=== PATIENT | male | born 1955 | race Caucasian/White ===

== ENCOUNTER 2016-12-06 22:16 | Inpatient (IN) | payer OTHER ==
--- NOTE | 2016-12-06 23:13 | HP ---
CIWA Score - CIWA Score Nausea/Vomitin-Mild Nausea/No Vomiting Muscle Tremors: 4-Moderate,w/Arms Extend Anxiety: 4-Mod. Anxious/Guarded Agitation: 4-Moderately Restless Paroxysmal Sweats: 1-Minimal Palms Moist Orientation: 1-Uncertain about Date Tacttile Disturbances: 0-None Auditory Disturbances: 0-None Visual Disturbances: 0-None Headache: 1-Very Mild CIWA-Ar Total Score: 16 Admission ROS BHS - HPI Chief Complaint: withdrawal sx Allergies/Adverse Reactions: Allergies Allergy/AdvReac Type Severity Reaction Status Date / Time No Known Allergies Allergy Verified 12/06/16 22:34 History of Present Illness: 61 years old male with long history of alcohol dependence gerd asthma copd has depression is admitted to detox Exam Limitations: No Limitations - Ebola screening Have you traveled outside of the country in the last 21 days: No Have you had contact with anyone from an Ebola affected area: No Have you been sick,other than usual withdrawal symptoms: No Do you have a fever: No - Review of Systems Constitutional: Chills, Changes in sleep, Weight Stable EENT: reports: Dental Problems (upper denture at home) Respiratory: reports: SOB with Exertion Cardiac: reports: No Symptoms Reported GI: reports: Nausea, Poor Fluid Intake, Indigestion, Abdominal cramping : reports: No Symptoms Reported Musculoskeletal: reports: Back Pain, Joint Pain (right knee), Joint Swelling, Muscle Pain, Neck Pain Integumentary: reports: Change in Color (left elbow), Dryness Neuro: reports: Tremors Endocrine: reports: No Symptoms Reported Hematology: reports: No Symptoms Reported Psychiatric: reports: Judgement Intact, Depressed Other Systems: Reviewed and Negative Patient History - Patient Medical History Hx Anemia: No Hx Asthma: Yes Hx Chronic Obstructive Pulmonary Disease (COPD): Yes Hx Cancer: No Hx Cardiac Disorders: No Hx Congestive Heart Failure: No Hx Hypertension: No Hx Hypercholesterolemia: No Hx Pacemaker: No HX Cerebrovascular Accident: No Hx Seizures: No Hx Dementia: No Hx Diabetes: No Hx Gastrointestinal Disorders: No Hx Liver Disease: Yes (cirrhosis ) Hx Genitourinary Disorders: No Hx Sexually Transmitted Disorders: No Hx Renal Disease (ESRD): No Hx Thyroid Disease: No Hx Human Immunodeficiency Virus (HIV): No Hx Hepatitis C: No Hx Depression: Yes Hx Suicide Attempt: No Hx Bipolar Disorder: No Hx Schizophrenia: No - Patient Surgical History Past Surgical History: Yes Hx Neurologic Surgery: No Hx Cataract Extraction: No Hx Cardiac Surgery: No Hx Lung Surgery: No Hx Breast Surgery: No Hx Breast Biopsy: No Hx Abdominal Surgery: No Hx Appendectomy: No Hx Cholecystectomy: No Hx Genitourinary Surgery: No Hx Orthopedic Surgery: Yes (laminectomy/Back and Left Shoulder) Other Surgical History: H/O L ARM SKIN GRAFT Anesthesia Reaction: No - PPD History Previous Implant?: Yes Documented Results: Negative w/proof Implanted On Prior [facility] Admission?: Yes Date: 11/09/15 Results: 0 MM PPD to be Administered?: Yes - Smoking Cessation Smoking history: Former smoker Have you smoked in the past 12 months: No Aproximately how many cigarettes per day: 0 Cigars Per Day: 0 Hx Chewing Tobacco Use: No Initiated information on smoking cessation: Yes 'Breaking Loose' booklet given: 12/06/16 - Substance & Tx. History Hx Alcohol Use: Yes Hx Substance Use: No Substance Use Type: Alcohol Hx Substance Use Treatment: Yes - Substances Abused Alcohol Route: Oral Frequency: Daily Amount used: BEER 18 PACK, VODKA 1 PINT Age of first use: 11 Date of Last Use: 12/05/16 Family Disease History - Family Disease History Family Disease History: CA: Mother (BREAST CA. AND ), Other: Father (ETOH DEPENDENT AND ) Admission Physical Exam S - Vital Signs Vital Signs: Vital Signs - 24 hr 12/06/16 23:03 Temperature 97.0 F L Pulse Rate 66 Respiratory 18 Rate Blood Pressure 140/69 - Physical General Appearance: Yes: Appropriately Dressed, Moderate Distress, Obese, Tremorous, Irritable, Sweating, Anxious HEENTM: Yes: Hearing grossly Normal, Normal ENT Inspection, Normocephalic, Normal Voice Respiratory: Yes: Chest Non-Tender, No Respiratory Distress, No Accessory Muscle Use, Wheezing, Hyperresonant Neck: Yes: Supple, Trachea in good position Breast: Yes: Breasts Symetrical Cardiology: Yes: Regular Rhythm, S1, S2, Bradycardia Abdominal: Yes: Non Tender, Soft Genitourinary: Yes: Within Normal Limits Back: Yes: Normal Inspection Musculoskeletal: Yes: Back pain, Joint swelling (right knee), Muscle Pain Extremities: Yes: Non-Tender, Tremors, Swelling (right knee) Neurological: Yes: Alert, Normal Response, Depressed Affect Integumentary: Yes: Dry, Warm Lymphatic: Yes: Within Normal Limits - Diagnostic (1) Bony prominence Current Visit: Yes Status: Chronic Comment: right clavical spur (2) Depression Current Visit: Yes Status: Suspected Qualifiers: Depression Type: dysthymia Qualified Code(s): F34.1 - Dysthymic disorder Comment: friend recent (3) Alcohol dependence with uncomplicated withdrawal Current Visit: Yes Status: Acute (4) Asthma Current Visit: Yes Status: Chronic Qualifiers: Asthma severity: moderate persistent Asthma complication type: uncomplicated Qualified Code(s): J45.40 - Moderate persistent asthma, uncomplicated (5) COPD (chronic obstructive pulmonary disease) Current Visit: Yes Status: Chronic Qualifiers: COPD type: COPD with acute exacerbation Qualified Code(s): J44.1 - Chronic obstructive pulmonary disease with (acute) exacerbation (6) Chronic low back pain Current Visit: Yes Status: Chronic Qualifiers: Back pain laterality: bilateral Sciatica presence: without sciatica Qualified Code(s): M54.5 - Low back pain; G89.29 - Other chronic pain (7) GERD (gastroesophageal reflux disease) Current Visit: Yes Status: Chronic Qualifiers: Esophagitis presence: without esophagitis Qualified Code(s): K21.9 - Gastro-esophageal reflux disease without esophagitis (8) Neuropathy Current Visit: Yes Status: Chronic Comment: left face + right toe big Cleared for Admission BHS - Detox or Rehab S Level of Care: Medically Managed Detox Regimen/Protocol: Librium BHS Breath Alcohol Content Breath Alcohol Content: 0 Urine Drug Screen - Results Drug Screen Negative: Yes
[2016-12-06 23:18] VITALS: BMI 35.2
[2016-12-06] MEDS ORDERED: hydrOXYzine PAMOATE 50 MG CAPSULE (FP) PO PRN (23:23)
[2016-12-06] MEDS ORDERED: chlordiazePOXIDE HCL 25 MG CAPSULE PO PRN (23:23)
[2016-12-06] MEDS ORDERED: P-EPHED 60MG/TRIPROLIDI 2.5MG TABLET PO PRN (23:23)
[2016-12-06] MEDS ORDERED: LOPERAMIDE HCL 2 MG CAPSULE PO PRN (23:23)
[2016-12-06] MEDS ORDERED: guaiFENesin/D-METHORPHAN HB 10 ML UNIT-DOSE CUPS PO PRN (23:23)
[2016-12-06] MEDS ORDERED: MENTHOL/PHENOL 1 EACH UD MM PRN (23:23)
[2016-12-06] MEDS ORDERED: MAGNESIUM HYDROX 2400MG/30ML ORAL SUSPENSION 30 ML CUP PO PRN (23:23)
[2016-12-06] MEDS ORDERED: MAGNESIUM CITRATE 300 ML BOTTLE PO PRN (23:23)
[2016-12-06] MEDS ORDERED: chlordiazePOXIDE HCL 25 MG CAPSULE PO ONE (23:23)
[2016-12-06] MEDS ORDERED: ALBUTEROL SO4 6.7 GM HFA INHALER IH PRN (23:29)
[2016-12-06] MEDS ORDERED: BACITRACIN 0.9 GM PACKET TP ONE (23:31)
[2016-12-06] MEDS ORDERED: cloNIDine HCL 0.1 MG TABLET PO PRN (23:32)
[2016-12-06] MEDS ORDERED: ALBUTEROL SO4 2.5/IPRATROPIUM 0.5 INH SOL 3 ML VIAL.NEB. NEB PRN (23:40)
[2016-12-07] MEDS: chlordiazePOXIDE HCL 25 MG CAPSULE PO SCH ×5 (05:57→22:42)
--- NOTE | 2016-12-07 09:49 | CONSULT ---
[facility] Psychiatric Consult - Data Date of interview: 12/07/16 Admission source: [facility] Identifying data: This is 61 years old male with no psychiatric hospitalization history, with unsteady gait due to Costochondritis Substance Abuse History: - Smoking Cessation. Smoking history: Former smoker. Have you smoked in the past 12 months: No. Aproximately how many cigarettes per day: 0. Cigars Per Day: 0. Hx Chewing Tobacco Use: No. Initiated information on smoking cessation: Yes. 'Breaking Loose' booklet given: . - Substance & Tx. History. Hx Alcohol Use: Yes. Hx Substance Use: No. Substance Use Type: Alcohol. Hx Substance Use Treatment: Yes. - Substances Abused. Alcohol. Route: Oral. Frequency: Daily. Amount used: BEER 18 PACK , VODKA 1 PINT. Age of first use: 11. Date of Last Use: 12/05/16 Medical History: Asthma, LBP, Costochondritis history, unsteady gait history Psychiatric History: Patient denies past psychiatric history, as per computer there is a history of depression and anxiety, Patient reportds no medications taking prior to admission Physical/Sexual Abuse/Trauma History: Denies Additional Comment: Observation. Detox Unit Care Protocol Mental Status Exam - Mental Status Exam Alert and Oriented to: Person Cognitive Function: Fair Patient Appearance: Unkempt Mood: Apprehensive Affect: Mood Congruent Patient Behavior: Cooperative Speech Pattern: Appropriate Voice Loudness: Mildly Soft/Quiet Thought Process: Goal Oriented Thought Disorder: Being Controlled Hallucinations: Denies Suicidal Ideation: Denies Homicidal Ideation: Denies Insight/Judgement: Fair Sleep: Difficulty falling asleep Appetite: Weight gain Muscle strength/Tone: Mild Hypotonicity Gait/Station: Shuffling Additional Comments: Observation. Detox Unit Care Protocol Psychiatric Findings - Problem List ([place] 1, 2,3) (1) Alcohol dependence with uncomplicated withdrawal Current Visit: Yes Status: Acute (2) Alcohol use Current Visit: No Status: Acute (3) Drug-induced mood disorder Current Visit: No Status: Acute (4) Nicotine dependence Current Visit: No Status: Chronic Qualifiers: Nicotine product type: cigarettes Substance use status: uncomplicated Qualified Code(s): F17.210 - Nicotine dependence, cigarettes, uncomplicated - Initial Treatment Plan Initial Treatment Plan: Observation. Detox Unit Care Protocol
[2016-12-07 09:57] LABS: MCH 31.5 pg (25.7-33.7); MEAN CELL VOLUME 95.6 fl (80-96); MEAN PLT VOLUME 9.1 fl (7.5-11.1); PLATELET COUNT 133 K/MM3 (134-434); WHITE BLOOD COUNT 5.1 K/mm3 (4.0-10.0)
[2016-12-07 09:59] LABS: ALBUMIN 3.4 g/dl (3.4-5.0); ANION GAP 9 (8-16); CALCIUM 8.7 mg/dL (8.5-10.1); CO2 30 mmol/L (21-32); COCKROFT - GAULT 131.03; GLUCOSE,RANDOM 103 mg/dL (74-106); SGOT/AST 30 U/L (15-37); SGPT/ALT 30 U/L (12-78)
[2016-12-07 10:01] LABS: ALK PHOS 75 U/L (45-117); TOT PROT 6.9 g/dl (6.4-8.2)
[2016-12-07] MEDS: BUDESONIDE/FORMETEROL FUMARATE 80/4.5 mcg INHALER IH SCH ×2 (10:41→22:42)
[2016-12-07] MEDS: PRENATAL VITAMINS W/ FOLIC ACID TABLET (FP) PO SCH (10:41)
[2016-12-07] MEDS: RANITIDINE HCL 150 MG TABLET (FP) PO SCH ×2 (10:41→22:42)
--- NOTE | 2016-12-07 11:51 | PN ---
[facility] CIWA - CIWA Score Nausea/Vomitin-No Nausea/No Vomiting Muscle Tremors: 4-Moderate,w/Arms Extend Anxiety: 4-Mod. Anxious/Guarded Agitation: 4-Moderately Restless Paroxysmal Sweats: 1-Minimal Palms Moist Orientation: 0-Oriented Tacttile Disturbances: 3-Moderate Itch/Numb/Burn Auditory Disturbances: 0-None Visual Disturbances: 0-None Headache: 0-None Present CIWA-Ar Total Score: 16 S Progress Note (SOAP) Subjective: ANXIETY,TREMORS,FATIGUE, INTERMITTENT SLEEP. Objective: 12/07/16 11:51 Vital Signs Temperature 95.3 F L 12/07/16 09:27 Pulse Rate 80 12/07/16 09:27 Respiratory Rate 18 12/07/16 09:27 Blood Pressure 113/80 12/07/16 09:27 O2 Sat by Pulse Oximetry (%) Laboratory Last Values WBC 5.1 K/mm3 (4.0-10.0) D 12/07/16 07:00 RBC 4.54 M/mm3 (4.00-5.60) 12/07/16 07:00 Hgb 14.3 GM/dL (11.7-16.9) D 12/07/16 07:00 Hct 43.4 % (35.4-49) 12/07/16 07:00 MCV 95.6 fl (80-96) 12/07/16 07:00 MCHC 33.0 g/dl (32.0-35.9) 12/07/16 07:00 RDW 14.0 % (11.9-15.9) 12/07/16 07:00 Plt Count 133 K/MM3 (134-434) L D 12/07/16 07:00 MPV 9.1 fl (7.5-11.1) 12/07/16 07:00 Sodium 142 mmol/L (136-145) 12/07/16 07:00 Potassium 4.1 mmol/L (3.5-5.1) 12/07/16 07:00 Chloride 103 mmol/L (98-107) 12/07/16 07:00 Carbon Dioxide 30 mmol/L (21-32) 12/07/16 07:00 Anion Gap 9 (8-16) 12/07/16 07:00 BUN 12 mg/dL (7-18) D 12/07/16 07:00 Creatinine 1.0 mg/dL (0.7-1.3) D 12/07/16 07:00 Creat Clearance w eGFR > 60 (>60) 12/07/16 07:00 Random Glucose 103 mg/dL (74-106) 12/07/16 07:00 Calcium 8.7 mg/dL (8.5-10.1) 12/07/16 07:00 Total Bilirubin 2.0 mg/dL (0.2-1.0) H 12/07/16 07:00 AST 30 U/L (15-37) D 12/07/16 07:00 ALT 30 U/L (12-78) 12/07/16 07:00 Alkaline Phosphatase 75 U/L (45-117) D 12/07/16 07:00 Total Protein 6.9 g/dl (6.4-8.2) 12/07/16 07:00 Albumin 3.4 g/dl (3.4-5.0) 12/07/16 07:00 Assessment: 12/07/16 11:51 WITHDRAWAL SX Plan: CONTINUE DETOX
--- NOTE | 2016-12-07 12:50 | EKG ---
Test Reason : Blood Pressure : / mmHG Vent. Rate : 056 BPM Atrial Rate : 056 BPM P-R Int : 136 ms QRS Dur : 096 ms QT Int : 432 ms P-R-T Axes : 047 014 013 degrees QTc Int : 416 ms SINUS BRADYCARDIA MINIMAL VOLTAGE CRITERIA FOR LVH, MAY BE NORMAL VARIANT BORDERLINE ECG WHEN COMPARED WITH ECG OF 07-MAY-2016 17:40, NO SIGNIFICANT CHANGE WAS FOUND Confirmed by JUANA REYES, NELLIE ([id number]) on 12/07/2016 12:49:23 PM Referred By: Confirmed By:NELLIE ARIAS MD
[2016-12-07 14:46] LABS: URINE APPEARANCE CLEAR; URINE BILIRUBIN NEGATIVE (NEGATIVE); URINE BLOOD NEGATIVE (NEGATIVE); URINE COLOR DKYELLOW; URINE GLUCOSE (UA) NEGATIVE (NEGATIVE); URINE KETONE NEGATIVE (NEGATIVE); URINE LEUK ESTERASE NEGATIVE (NEGATIVE); URINE NITRITE NEGATIVE (NEGATIVE); URINE PROTEIN NEGATIVE (NEGATIVE); URINE UROBILINOGEN 2.0 E.U/dl E.U./dl (0.2-1.0)
[2016-12-07] MEDS: THIAMINE HCL 100 MG TABLET (FP) PO SCH (22:42)
[2016-12-07] MEDS: diphenhydrAMINE HCL 50 MG CAPSULE PO PRN (22:43)
[2016-12-08] MEDS: chlordiazePOXIDE HCL 25 MG CAPSULE PO SCH ×3 (06:10→17:21)
[2016-12-08] MEDS: RANITIDINE HCL 150 MG TABLET (FP) PO SCH ×2 (10:46→22:34)
[2016-12-08] MEDS: PRENATAL VITAMINS W/ FOLIC ACID TABLET (FP) PO SCH (10:46)
[2016-12-08] MEDS: BUDESONIDE/FORMETEROL FUMARATE 80/4.5 mcg INHALER IH SCH ×2 (10:48→22:33)
--- NOTE | 2016-12-08 11:56 | PN ---
[facility] CIWA - CIWA Score Nausea/Vomitin-No Nausea/No Vomiting Muscle Tremors: 5 Anxiety: 4-Mod. Anxious/Guarded Agitation: 4-Moderately Restless Paroxysmal Sweats: 1-Minimal Palms Moist Orientation: 0-Oriented Tacttile Disturbances: 3-Moderate Itch/Numb/Burn Auditory Disturbances: 0-None Visual Disturbances: 0-None Headache: 0-None Present CIWA-Ar Total Score: 17 S Progress Note (SOAP) Subjective: TREMORS,ANXIETY,SWEATS,FATIGUE. Objective: 12/08/16 11:56 Vital Signs Temperature 96.7 F L 12/08/16 10:26 Pulse Rate 76 12/08/16 10:26 Respiratory Rate 18 12/08/16 10:26 Blood Pressure 111/72 12/08/16 10:26 O2 Sat by Pulse Oximetry (%) Laboratory Last Values WBC 5.1 K/mm3 (4.0-10.0) D 12/07/16 07:00 RBC 4.54 M/mm3 (4.00-5.60) 12/07/16 07:00 Hgb 14.3 GM/dL (11.7-16.9) D 12/07/16 07:00 Hct 43.4 % (35.4-49) 12/07/16 07:00 MCV 95.6 fl (80-96) 12/07/16 07:00 MCHC 33.0 g/dl (32.0-35.9) 12/07/16 07:00 RDW 14.0 % (11.9-15.9) 12/07/16 07:00 Plt Count 133 K/MM3 (134-434) L D 12/07/16 07:00 MPV 9.1 fl (7.5-11.1) 12/07/16 07:00 Sodium 142 mmol/L (136-145) 12/07/16 07:00 Potassium 4.1 mmol/L (3.5-5.1) 12/07/16 07:00 Chloride 103 mmol/L (98-107) 12/07/16 07:00 Carbon Dioxide 30 mmol/L (21-32) 12/07/16 07:00 Anion Gap 9 (8-16) 12/07/16 07:00 BUN 12 mg/dL (7-18) D 12/07/16 07:00 Creatinine 1.0 mg/dL (0.7-1.3) D 12/07/16 07:00 Creat Clearance w eGFR > 60 (>60) 12/07/16 07:00 Random Glucose 103 mg/dL (74-106) 12/07/16 07:00 Calcium 8.7 mg/dL (8.5-10.1) 12/07/16 07:00 Total Bilirubin 2.0 mg/dL (0.2-1.0) H 12/07/16 07:00 AST 30 U/L (15-37) D 12/07/16 07:00 ALT 30 U/L (12-78) 12/07/16 07:00 Alkaline Phosphatase 75 U/L (45-117) D 12/07/16 07:00 Total Protein 6.9 g/dl (6.4-8.2) 12/07/16 07:00 Albumin 3.4 g/dl (3.4-5.0) 12/07/16 07:00 Urine Color Dkyellow 12/07/16 11:20 Urine Appearance Clear 12/07/16 11:20 Urine pH 5.0 (5.0-8.0) D 12/07/16 11:20 Ur Specific [place] 1.020 (1.005-1.025) 12/07/16 11:20 Urine Protein Negative (NEGATIVE) 12/07/16 11:20 Urine Glucose (UA) Negative (NEGATIVE) 12/07/16 11:20 Urine Ketones Negative (NEGATIVE) 12/07/16 11:20 Urine Blood Negative (NEGATIVE) 12/07/16 11:20 Urine Nitrite Negative (NEGATIVE) 12/07/16 11:20 Urine Bilirubin Negative (NEGATIVE) 12/07/16 11:20 Urine Urobilinogen 2.0 e.u/dl E.U./dl (0.2-1.0) 12/07/16 11:20 Ur Leukocyte Esterase Negative (NEGATIVE) 12/07/16 11:20 RPR Titer Nonreactive (NONREACTIVE) 12/07/16 07:00 Assessment: 12/08/16 11:56 WITHDRAWAL SX Plan: CONTINUE DETOX
[2016-12-08] MEDS: THIAMINE HCL 100 MG TABLET (FP) PO SCH (22:34)
[2016-12-08] MEDS: chlordiazePOXIDE 5 MG CAPSULE PO SCH (22:34)
[2016-12-08] MEDS: diphenhydrAMINE HCL 50 MG CAPSULE PO PRN (22:35)
[2016-12-09] MEDS: chlordiazePOXIDE 5 MG CAPSULE PO SCH ×3 (05:32→17:50)
[2016-12-09] MEDS: BUDESONIDE/FORMETEROL FUMARATE 80/4.5 mcg INHALER IH SCH ×2 (10:39→22:30)
[2016-12-09] MEDS: RANITIDINE HCL 150 MG TABLET (FP) PO SCH ×2 (10:39→22:30)
[2016-12-09] MEDS: PRENATAL VITAMINS W/ FOLIC ACID TABLET (FP) PO SCH (10:39)
[2016-12-09] MEDS: ACETAMINOPHEN 325 MG TABLET (FP) PO PRN ×2 (10:41→23:01)
--- NOTE | 2016-12-09 16:25 | PN ---
BHS Progress Note (SOAP) Subjective: Stomach Cramping, Tremors, Body Aches, H/A, Interrupted Sleep. Objective: PT. A & O X 3, OBSERVED MOVING ABOUT UNIT IN A WHEELCHAIR. 12/09/16 16:23 Vital Signs Temperature 96.7 F L 12/09/16 13:22 Pulse Rate 67 12/09/16 13:22 Respiratory Rate 18 12/09/16 13:22 Blood Pressure 117/71 12/09/16 13:22 O2 Sat by Pulse Oximetry (%) Laboratory Last Values WBC 5.1 K/mm3 (4.0-10.0) D 12/07/16 07:00 RBC 4.54 M/mm3 (4.00-5.60) 12/07/16 07:00 Hgb 14.3 GM/dL (11.7-16.9) D 12/07/16 07:00 Hct 43.4 % (35.4-49) 12/07/16 07:00 MCV 95.6 fl (80-96) 12/07/16 07:00 MCHC 33.0 g/dl (32.0-35.9) 12/07/16 07:00 RDW 14.0 % (11.9-15.9) 12/07/16 07:00 Plt Count 133 K/MM3 (134-434) L D 12/07/16 07:00 MPV 9.1 fl (7.5-11.1) 12/07/16 07:00 Sodium 142 mmol/L (136-145) 12/07/16 07:00 Potassium 4.1 mmol/L (3.5-5.1) 12/07/16 07:00 Chloride 103 mmol/L (98-107) 12/07/16 07:00 Carbon Dioxide 30 mmol/L (21-32) 12/07/16 07:00 Anion Gap 9 (8-16) 12/07/16 07:00 BUN 12 mg/dL (7-18) D 12/07/16 07:00 Creatinine 1.0 mg/dL (0.7-1.3) D 12/07/16 07:00 Creat Clearance w eGFR > 60 (>60) 12/07/16 07:00 Random Glucose 103 mg/dL (74-106) 12/07/16 07:00 Calcium 8.7 mg/dL (8.5-10.1) 12/07/16 07:00 Total Bilirubin 2.0 mg/dL (0.2-1.0) H 12/07/16 07:00 AST 30 U/L (15-37) D 12/07/16 07:00 ALT 30 U/L (12-78) 12/07/16 07:00 Alkaline Phosphatase 75 U/L (45-117) D 12/07/16 07:00 Total Protein 6.9 g/dl (6.4-8.2) 12/07/16 07:00 Albumin 3.4 g/dl (3.4-5.0) 12/07/16 07:00 Urine Color Dkyellow 12/07/16 11:20 Urine Appearance Clear 12/07/16 11:20 Urine pH 5.0 (5.0-8.0) D 12/07/16 11:20 Ur Specific [place] 1.020 (1.005-1.025) 12/07/16 11:20 Urine Protein Negative (NEGATIVE) 12/07/16 11:20 Urine Glucose (UA) Negative (NEGATIVE) 12/07/16 11:20 Urine Ketones Negative (NEGATIVE) 12/07/16 11:20 Urine Blood Negative (NEGATIVE) 12/07/16 11:20 Urine Nitrite Negative (NEGATIVE) 12/07/16 11:20 Urine Bilirubin Negative (NEGATIVE) 12/07/16 11:20 Urine Urobilinogen 2.0 e.u/dl E.U./dl (0.2-1.0) 12/07/16 11:20 Ur Leukocyte Esterase Negative (NEGATIVE) 12/07/16 11:20 RPR Titer Nonreactive (NONREACTIVE) 12/07/16 07:00 LABS NOTED. 12/09/16 16:24 Assessment: 12/09/16 16:24 WITHDRAWAL SYMPTOMS. Plan: CONTINUE DETOX. ADVISED PATIENT TO FOLLOW-UP WITH SR. OPERATIONS MANAGER AFTER DISCHARGE FROM DETOX FOR GENERAL MEDICAL ASSESSMENT AND FOR ABNORMAL ADMISSION LAB VALUES.
[2016-12-09] MEDS: chlordiazePOXIDE HCL 10 MG CAPSULE PO SCH (22:30)
[2016-12-09] MEDS: diphenhydrAMINE HCL 50 MG CAPSULE PO PRN (22:30)
[2016-12-09] MEDS: THIAMINE HCL 100 MG TABLET (FP) PO SCH (22:30)
[2016-12-09] MEDS: MAG HYDROX/AL HYDROX/SIMETH 30 ML UNIT-DOSE CUP PO PRN (23:01)
[2016-12-10] MEDS: chlordiazePOXIDE HCL 10 MG CAPSULE PO SCH ×3 (05:39→17:38)
[2016-12-10] MEDS: BUDESONIDE/FORMETEROL FUMARATE 80/4.5 mcg INHALER IH SCH ×2 (10:36→22:32)
[2016-12-10] MEDS: ACETAMINOPHEN 325 MG TABLET (FP) PO PRN ×2 (10:37→22:33)
[2016-12-10] MEDS: RANITIDINE HCL 150 MG TABLET (FP) PO SCH ×2 (10:37→22:31)
[2016-12-10] MEDS: PRENATAL VITAMINS W/ FOLIC ACID TABLET (FP) PO SCH (10:37)
[2016-12-10] MEDS: MAG HYDROX/AL HYDROX/SIMETH 30 ML UNIT-DOSE CUP PO PRN (10:38)
--- NOTE | 2016-12-10 18:04 | PN ---
S Progress Note (SOAP) Subjective: Nausea, H/A, Body Aches, Tremors. Objective: PT. A & O X 3, OBSERVED AMBULATING ON UNIT IN WHEELCHAIR. 12/10/16 18:02 Vital Signs Temperature 97.4 F L 12/10/16 17:43 Pulse Rate 67 12/10/16 17:43 Respiratory Rate 18 12/10/16 17:43 Blood Pressure 106/72 12/10/16 17:43 O2 Sat by Pulse Oximetry (%) Laboratory Last Values WBC 5.1 K/mm3 (4.0-10.0) D 12/07/16 07:00 RBC 4.54 M/mm3 (4.00-5.60) 12/07/16 07:00 Hgb 14.3 GM/dL (11.7-16.9) D 12/07/16 07:00 Hct 43.4 % (35.4-49) 12/07/16 07:00 MCV 95.6 fl (80-96) 12/07/16 07:00 MCHC 33.0 g/dl (32.0-35.9) 12/07/16 07:00 RDW 14.0 % (11.9-15.9) 12/07/16 07:00 Plt Count 133 K/MM3 (134-434) L D 12/07/16 07:00 MPV 9.1 fl (7.5-11.1) 12/07/16 07:00 Sodium 142 mmol/L (136-145) 12/07/16 07:00 Potassium 4.1 mmol/L (3.5-5.1) 12/07/16 07:00 Chloride 103 mmol/L (98-107) 12/07/16 07:00 Carbon Dioxide 30 mmol/L (21-32) 12/07/16 07:00 Anion Gap 9 (8-16) 12/07/16 07:00 BUN 12 mg/dL (7-18) D 12/07/16 07:00 Creatinine 1.0 mg/dL (0.7-1.3) D 12/07/16 07:00 Creat Clearance w eGFR > 60 (>60) 12/07/16 07:00 Random Glucose 103 mg/dL (74-106) 12/07/16 07:00 Calcium 8.7 mg/dL (8.5-10.1) 12/07/16 07:00 Total Bilirubin 2.0 mg/dL (0.2-1.0) H 12/07/16 07:00 AST 30 U/L (15-37) D 12/07/16 07:00 ALT 30 U/L (12-78) 12/07/16 07:00 Alkaline Phosphatase 75 U/L (45-117) D 12/07/16 07:00 Total Protein 6.9 g/dl (6.4-8.2) 12/07/16 07:00 Albumin 3.4 g/dl (3.4-5.0) 12/07/16 07:00 Urine Color Dkyellow 12/07/16 11:20 Urine Appearance Clear 12/07/16 11:20 Urine pH 5.0 (5.0-8.0) D 12/07/16 11:20 Ur Specific [place] 1.020 (1.005-1.025) 12/07/16 11:20 Urine Protein Negative (NEGATIVE) 12/07/16 11:20 Urine Glucose (UA) Negative (NEGATIVE) 12/07/16 11:20 Urine Ketones Negative (NEGATIVE) 12/07/16 11:20 Urine Blood Negative (NEGATIVE) 12/07/16 11:20 Urine Nitrite Negative (NEGATIVE) 12/07/16 11:20 Urine Bilirubin Negative (NEGATIVE) 12/07/16 11:20 Urine Urobilinogen 2.0 e.u/dl E.U./dl (0.2-1.0) 12/07/16 11:20 Ur Leukocyte Esterase Negative (NEGATIVE) 12/07/16 11:20 RPR Titer Nonreactive (NONREACTIVE) 12/07/16 07:00 LABS NOTED. Assessment: 12/10/16 18:03 WITHDRAWAL SYMPTOMS. Plan: CONTINUE DETOX. ADVISED PATIENT TO FOLLOW-UP WITH INVENTORY TRANSCRIBER AFTER DISCHARGE FROM DETOX FOR GENERAL MEDICAL ASSESSMENT AND FOR ABNORMAL ADMISSION LAB VALUES.
[2016-12-10] MEDS: THIAMINE HCL 100 MG TABLET (FP) PO SCH (22:31)
[2016-12-10] MEDS: diphenhydrAMINE HCL 50 MG CAPSULE PO PRN (22:31)
[2016-12-11 06:25] VITALS: BP 133/79; PULSE 54; TEMP 96.3
--- NOTE | 2016-12-11 09:47 | DS ---
[facility] Detox Discharge Summary Admission Date: 12/06/16 Discharge Date: 12/11/16 - History Present History: Alcohol Dependence Pertinent Past History: Asthma/COPD Chronic Low Back pain - Physical Exam Results Vital Signs: Vital Signs Temperature 96.3 F L 12/11/16 06:25 Pulse Rate 54 L 12/11/16 06:25 Respiratory Rate 18 12/11/16 06:25 Blood Pressure 133/79 12/11/16 06:25 O2 Sat by Pulse Oximetry (%) Pertinent Admission Physical Exam Findings: Withdrawal sx. Laboratory Last Values WBC 5.1 K/mm3 (4.0-10.0) D 12/07/16 07:00 RBC 4.54 M/mm3 (4.00-5.60) 12/07/16 07:00 Hgb 14.3 GM/dL (11.7-16.9) D 12/07/16 07:00 Hct 43.4 % (35.4-49) 12/07/16 07:00 MCV 95.6 fl (80-96) 12/07/16 07:00 MCHC 33.0 g/dl (32.0-35.9) 12/07/16 07:00 RDW 14.0 % (11.9-15.9) 12/07/16 07:00 Plt Count 133 K/MM3 (134-434) L D 12/07/16 07:00 MPV 9.1 fl (7.5-11.1) 12/07/16 07:00 Sodium 142 mmol/L (136-145) 12/07/16 07:00 Potassium 4.1 mmol/L (3.5-5.1) 12/07/16 07:00 Chloride 103 mmol/L (98-107) 12/07/16 07:00 Carbon Dioxide 30 mmol/L (21-32) 12/07/16 07:00 Anion Gap 9 (8-16) 12/07/16 07:00 BUN 12 mg/dL (7-18) D 12/07/16 07:00 Creatinine 1.0 mg/dL (0.7-1.3) D 12/07/16 07:00 Creat Clearance w eGFR > 60 (>60) 12/07/16 07:00 Random Glucose 103 mg/dL (74-106) 12/07/16 07:00 Calcium 8.7 mg/dL (8.5-10.1) 12/07/16 07:00 Total Bilirubin 2.0 mg/dL (0.2-1.0) H 12/07/16 07:00 AST 30 U/L (15-37) D 12/07/16 07:00 ALT 30 U/L (12-78) 12/07/16 07:00 Alkaline Phosphatase 75 U/L (45-117) D 12/07/16 07:00 Total Protein 6.9 g/dl (6.4-8.2) 12/07/16 07:00 Albumin 3.4 g/dl (3.4-5.0) 12/07/16 07:00 Urine Color Dkyellow 12/07/16 11:20 Urine Appearance Clear 12/07/16 11:20 Urine pH 5.0 (5.0-8.0) D 12/07/16 11:20 Ur Specific [place] 1.020 (1.005-1.025) 12/07/16 11:20 Urine Protein Negative (NEGATIVE) 12/07/16 11:20 Urine Glucose (UA) Negative (NEGATIVE) 12/07/16 11:20 Urine Ketones Negative (NEGATIVE) 12/07/16 11:20 Urine Blood Negative (NEGATIVE) 12/07/16 11:20 Urine Nitrite Negative (NEGATIVE) 12/07/16 11:20 Urine Bilirubin Negative (NEGATIVE) 12/07/16 11:20 Urine Urobilinogen 2.0 e.u/dl E.U./dl (0.2-1.0) 12/07/16 11:20 Ur Leukocyte Esterase Negative (NEGATIVE) 12/07/16 11:20 RPR Titer Nonreactive (NONREACTIVE) 12/07/16 07:00 labs noted - Treatment Hospital Course: Detox Protocol Followed, Detoxed Safely, Responded well, Discharged Condition Good, Rehab Referral Accepted Patient has Accepted a Rehab Referral to: 12 step meetings - Medication Discharge Medications: Ambulatory Orders NK [No Known Home Medication] 12/06/16 - Diagnosis (1) Alcohol dependence with uncomplicated withdrawal Current Visit: Yes Status: Acute (2) Asthma Current Visit: Yes Status: Chronic Qualifiers: Asthma severity: moderate persistent Asthma complication type: uncomplicated Qualified Code(s): J45.40 - Moderate persistent asthma, uncomplicated (3) COPD (chronic obstructive pulmonary disease) Current Visit: Yes Status: Chronic Qualifiers: COPD type: COPD with acute exacerbation Qualified Code(s): J44.1 - Chronic obstructive pulmonary disease with (acute) exacerbation (4) Chronic low back pain Current Visit: Yes Status: Chronic Qualifiers: Back pain laterality: bilateral Sciatica presence: without sciatica Qualified Code(s): M54.5 - Low back pain; G89.29 - Other chronic pain (5) GERD (gastroesophageal reflux disease) Current Visit: Yes Status: Chronic Qualifiers: Esophagitis presence: without esophagitis Qualified Code(s): K21.9 - Gastro-esophageal reflux disease without esophagitis (6) Neuropathy Current Visit: Yes Status: Chronic (7) Abnormality of gait due to impairment of balance Current Visit: Yes Status: Acute - AMA Did Patient Leave Against Medical Advice: No
[2016-12-11] MEDS: PRENATAL VITAMINS W/ FOLIC ACID TABLET (FP) PO SCH (10:38)
[2016-12-11] MEDS: BUDESONIDE/FORMETEROL FUMARATE 80/4.5 mcg INHALER IH SCH (10:38)
[2016-12-11] MEDS: RANITIDINE HCL 150 MG TABLET (FP) PO SCH (10:38)
== END 2016-12-11 12:50 | disposition home or self-care (01) | DRG 897 ==
LOC: YASAS 22:16 → Y3N 22:59
PROVIDERS: ADMIT Internal Medicine Addiction Medicine; ATTEND Internal Medicine Addiction Medicine
PROC: HZ2ZZZZ Detoxification Services for Substance Abuse Treatment (ICD-10-PCS; principal; 2016-12-11)
DX: F10.230 Alcohol dependence with withdrawal, uncomplicated (principal); J44.1 Chronic obstructive pulmonary disease with (acute) exacerbation; F17.210 Nicotine dependence, cigarettes, uncomplicated; F34.1 Dysthymic disorder; F19.24 Other psychoactive substance dependence with psychoactive substance-induced mood disorder; J45.40 Moderate persistent asthma, uncomplicated; G62.9 Polyneuropathy, unspecified; K21.9 Gastro-esophageal reflux disease without esophagitis; M54.5 Low back pain; G89.29 Other chronic pain; R26.89 Other abnormalities of gait and mobility; Z99.89 Dependence on other enabling machines and devices
CPT/HCPCS: 36415; 71020-TC; 73000-TC-RT; 80053; 81003; 85027; 86593; 93005; 93010; 99283-25

== ENCOUNTER 2017-03-14 22:29 | Emergency (ER) | payer OTHER ==
[2017-03-14 22:38] VITALS: BP 132/78; PULSE 65; TEMP 98.6; BMI 28.5
--- NOTE | 2017-03-14 23:53 | PDOC ---
History of Present Illness - General Chief Complaint: Back Pain Stated Complaint: DETOX Time Seen by Provider: 03/14/17 22:50 - History of Present Illness Initial Comments: 03/14/17 23:39 CHIEF COMPLAINT: back tingling HISTORY OF PRESENT ILLNESS: 61 yo M with PMH of COPD, Cirrhosis, alcohol abuse, alcohol withdrawal, and tremors. Patient reports that he has chronic back pain and today his pain is "tingling." Earlier today he was bending down and felt pain going from his down his right leg. He also complains of "tingling" pain to his left chest and shoulder. PAST MEDICAL HISTORY: as per HPI FAMILY HISTORY: Denies SOCIAL HISTORY: hx of ETOH abuse, recent detox at [address] [place] [address], reported last drink this morning at 11am SURGICAL HISTORY: laminectomy ALLERGIES: No known drug allergies REVIEW OF SYSTEMS General/Constitutional: Denies fever or chills. Denies weakness, weight change. HEENT: Denies change in vision. Denies ear pain or discharge. Denies sore throat. Cardiovascular: Denies chest pain or shortness of breath. Respiratory: Denies cough, wheezing, or hemoptysis. Gastrointestinal: Denies nausea, vomiting, diarrhea or constipation. Denies rectal bleeding. Genitourinary: Denies dysuria, frequency, or change in urination. Musculoskeletal: Denies joint or muscle swelling or pain. Denies neck or back pain. Skin and breasts: Denies rash or easy bruising. Neurologic: Denies headache, vertigo, loss of consciousness, or loss of sensation. PHYSICAL EXAM General Appearance: Mild tremors. HEENT: Poor dentition with some slurred speech. EOMI, PERRLA, normal ENT inspection, TMs normal, pharynx normal. No conjunctival pallor. No photophobia , scleral icterus. Respiratory/Chest: Lungs CTAB. Cardiovascular: RRR. S1, S2. Gastrointestinal/Abdominal: Normal bowel sounds. Abdomen soft, non-distended. No tenderness or rebound tenderness. No organomegaly, pulsatile mass, guarding , hernia, hepatomegaly, splenomegaly. Musculoskeletal/Extremities: Tenderness to R lower back. Normal inspection. FROM of all extremities, normal capillary refill. Pelvis Stable. No CVA tenderness. No tenderness to extremities, pedal edema, swelling, erythema or deformity. Integumentary: Appropriate color, dry, warm. 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 Fully oriented, alert. Appropriate mood/affect. Motor strength 5/5. No appreciable EOM palsy, facial droop or sensory deficit. 03/14/17 23:55 Past History - Past Medical History Allergies/Adverse Reactions: Allergies Allergy/AdvReac Type Severity Reaction Status Date / Time No Known Allergies Allergy Verified 03/14/17 22:38 Home Medications: Ambulatory Orders Albuterol Sulfate Inhaler - [Ventolin Hfa Inhaler -] 1 - 2 inh PO Q4H PRN Diclofenac Sodium [Voltaren] 1 applic TP BID #1 tube 03/15/17 Anemia: No Asthma: Yes Cancer: No Cardiac Disorders: No CVA: No COPD: Yes CHF: No Dementia: No Diabetes: No GI Disorders: No Disorders: No HTN: No Hypercholesterolemia: No Kidney Stones: No Liver Disease: Yes (cirrhosis ) Suicide Attempt (Hx): No Seizures: No Thyroid Disease: No - Surgical History Abdominal Surgery: No Appendectomy: No Cardiac Surgery: No Cholecystectomy: No Lung Surgery: No Neurologic Surgery: No Orthopedic Surgery: Yes (laminectomy/Back and Left Shoulder) - Reproductive History Testicular Surgery: No - Immunization History Immunization Up to Date: Yes - Psycho/Social/Smoking Cessation Hx Anxiety: No Suicidal Ideation: No Smoking History: Never smoked Have you smoked in the past 12 months: No Number of Cigarettes Smoked Daily: 0 Cigars Per Day: 0 Information on smoking cessation initiated: No 'Breaking Loose' booklet given: 12/06/16 Hx Alcohol Use: Yes (daily) Drug/Substance Use Hx: No Substance Use Type: Alcohol Hx Substance Use Treatment: Yes *Physical Exam - Vital Signs Last Vital Signs Temp Pulse Resp BP Pulse Ox 98.6 F 65 18 132/78 97 03/14/17 22:30 03/14/17 22:30 03/14/17 22:30 03/14/17 22:30 03/14/17 22:30 ED Treatment Course - LABORATORY CBC & Chemistry Diagram: 03/15/17 00:20 03/15/17 00:20 Medical Decision Making - Medical Decision Making 03/15/17 00:08 61 yo M with PMH of COPD, Cirrhosis, alcohol abuse, alcohol withdrawal, and tremors. -CBC, CMP, PT/INR, alcohol, trop -EKG -30 mg Toradol IV 03/15/17 03:47 EKG normal Labs unremarkable. Patient continues to c/o "chest pain." -Pepcid, Protonix, IVF Patient reassessed, chest pain is improved. At this time chest pain is reproducible on palpation. Likely MSK in nature. Will discharge to home with NSAIDs. Advised patient to take medication as prescribed and follow up with PCP within the next week. Advised patient of signs and symptoms for return to ED. Patient verbalized understanding and agrees to plan. *DC/Admit/Observation/Transfer Diagnosis at time of Disposition: Chest pain in adult Chronic back pain Qualifiers: Back pain location: low back pain Back pain laterality: midline Sciatica presence: with sciatica Sciatica laterality: sciatica of right side Qualified Code(s): M54.41 - Lumbago with sciatica, right side; G89.29 - Other chronic pain - Discharge Dispostion Disposition: HOME Condition at time of disposition: Stable Admit: Yes - Prescriptions Prescriptions: Diclofenac Sodium [Voltaren] 1 applic TP BID #1 tube - Referrals Referrals: Nathan Stein MD [Primary Care Provider] - - Patient Instructions Printed Discharge Instructions: DI for Costochondritis Additional Instructions: Please use medication as prescribed. Follow up with your primary care doctor within the next 3-4 days. If you experience any new chest pain, shortness of breath, numbness or tingling in your arm or jaw, palpitations, loss of bowel or bladder function, loss of sensation to your legs, or any new or worsening symptoms, please return to the ER.
[2017-03-15 00:42] LABS: BASOPHIL 0.6 % (0-2.0); EOSINOPHIL 2.5 % (0-4.5); MCH 31.7 pg (25.7-33.7); MCHC 33.8 g/dl (32.0-35.9); MEAN CELL VOLUME 93.8 fl (80-96); MEAN PLT VOLUME 9.2 fl (7.5-11.1); NEUTROPHILS 63.5 % (42.8-82.8); PLATELET COUNT 168 K/MM3 (134-434); RDW 12.8 % (11.9-15.9); WHITE BLOOD COUNT 6.9 K/mm3 (4.0-10.0)
[2017-03-15 00:55] LABS: INR 1.23 (0.82-1.09); PROTHROMBIN TIME (PATIENT) 13.6 SEC (9.98-11.88)
[2017-03-15 01:05] LABS: ALBUMIN 3.8 g/dl (3.4-5.0); ANION GAP 6 (8-16); BILIRUBIN,TOTAL 1.9 mg/dL (0.2-1.0); CALCIUM 8.8 mg/dL (8.5-10.1); CO2 32 mmol/L (21-32); GLUCOSE,RANDOM 105 mg/dL (74-106); SGOT/AST 14 U/L (15-37); SGPT/ALT 26 U/L (12-78); TOT PROT 7.5 g/dl (6.4-8.2)
[2017-03-15 01:08] LABS: ALK PHOS 81 U/L (45-117); CPK 65 IU/L (39-308); TROPONIN I < 0.02 ng/ml (0.00-0.05)
[2017-03-15] MEDS ORDERED: KETOROLAC TROMETHAMINE 30 MG/1 ML VIAL IVPUSH ONE (01:15)
[2017-03-15] MEDS ORDERED: KETOROLAC TROMETHAMINE 30 MG/1 ML VIAL ONE (01:23)
[2017-03-15] MEDS ORDERED: SODIUM CHLORIDE 0.9% 1000 ML INFUS.BAG IV ONE (02:52)
[2017-03-15] MEDS ORDERED: FAMOTIDINE 20 MG/50 ML IVPB 50 ML IVPB ONE ×2 (02:52→03:04)
[2017-03-15] MEDS ORDERED: PANTOPRAZOLE SODIUM 40 MG in SODIUM CHLORIDE 100 ML IVPB ONE (02:52)
[2017-03-15] MEDS ORDERED: PANTOPRAZOLE SODIUM 100 ML IVPB ONE (03:03)
--- NOTE | 2017-03-15 13:38 | EKG ---
Test Reason : Blood Pressure : / mmHG Vent. Rate : 052 BPM Atrial Rate : 052 BPM P-R Int : 140 ms QRS Dur : 094 ms QT Int : 442 ms P-R-T Axes : 039 041 044 degrees QTc Int : 411 ms SINUS BRADYCARDIA OTHERWISE NORMAL ECG WHEN COMPARED WITH ECG OF 06-DEC-2016 22:43, NO SIGNIFICANT CHANGE WAS FOUND Confirmed by NELLIE ARIAS MD ([id number]) on 03/15/2017 1:37:51 PM Referred By: Confirmed By:NELLIE ARIAS MD
== END 2017-03-15 04:21 | disposition home or self-care (01) ==
LOC: JER 22:29
PROC: 3E033GC Introduction of Other Therapeutic Substance into Peripheral Vein, Percutaneous Approach (ICD-10-PCS; principal; 2017-03-14)
PROC: 3E0333Z Introduction of Anti-inflammatory into Peripheral Vein, Percutaneous Approach (ICD-10-PCS; 2017-03-14)
PROC: 3E0337Z Introduction of Electrolytic and Water Balance Substance into Peripheral Vein, Percutaneous Approach (ICD-10-PCS; 2017-03-14)
DX: M54.41 Lumbago with sciatica, right side (principal); G89.29 Other chronic pain
CPT/HCPCS: 36415; 80053; 80307; 84484; 85025; 85610; 93005; 93010; 99283-25

== ENCOUNTER 2017-04-12 03:42 | Inpatient (IN) | payer OTHER ==
--- NOTE | 2017-04-12 04:08 | HP ---
CIWA Score - CIWA Score Nausea/Vomitin Muscle Tremors: 6 Anxiety: 5 Agitation: 5 Paroxysmal Sweats: No Perspiration Orientation: 1-Uncertain about Date Tacttile Disturbances: 0-None Auditory Disturbances: 0-None Visual Disturbances: 0-None Headache: 4-Moderately Severe CIWA-Ar Total Score: 24 Admission ROS S - [facility] Chief Complaint: SEEKING DETOX FOR ALCOHOLISM Allergies/Adverse Reactions: Allergies Allergy/AdvReac Type Severity Reaction Status Date / Time No Known Allergies Allergy Verified 04/12/17 00:11 History of Present Illness: 61 Y.O. MALE ADMITTED FOR DETOX FROM ALCOHOL. CLIENT WAS SENT FROM [facility] AFTER PRESENTING FOR DETOX TXMENT. REPORTS LAST DRINK ABOUT 3-4 DAYS AGO. HE IS KNOWN TO [facility]/DETOX. REPORTS LAST DETOX SERVICES MORE THAN A MONTH AGO. Exam Limitations: Physical Impairment (ATAXIA/ UNSTAEDY GAIT) - Ebola screening Have you traveled outside of the country in the last 21 days: No Have you had contact with anyone from an Ebola affected area: No Have you been sick,other than usual withdrawal symptoms: No Do you have a fever: No - Review of Systems Constitutional: Chills, Night Sweats, Changes in sleep EENT: reports: Dental Problems (POOR DENTITION) Respiratory: reports: Other (H/O ASTHMA) Cardiac: reports: No Symptoms Reported GI: reports: Nausea : reports: No Symptoms Reported Musculoskeletal: reports: Back Pain, Joint Stiffness Integumentary: reports: No Symptoms Reported Neuro: reports: Headache (MIGRAINES), Tremors, Unsteady Gait, Ataxia Endocrine: reports: No Symptoms Reported Hematology: reports: No Symptoms Reported Psychiatric: reports: Anxious, Depressed Other Systems: Reviewed and Negative Patient History - Patient Medical History Hx Anemia: No Hx Asthma: Yes Hx Chronic Obstructive Pulmonary Disease (COPD): Yes Hx Cancer: No Hx Cardiac Disorders: No Hx Congestive Heart Failure: No Hx Hypertension: No Hx Hypercholesterolemia: No Hx Pacemaker: No HX Cerebrovascular Accident: No Hx Seizures: No Hx Dementia: No Hx Diabetes: No Hx Gastrointestinal Disorders: No Hx Liver Disease: Yes (cirrhosis ) Hx Genitourinary Disorders: No Hx Sexually Transmitted Disorders: No Hx Renal Disease (ESRD): No Hx Thyroid Disease: No Hx Human Immunodeficiency Virus (HIV): No Hx Hepatitis C: No Hx Depression: Yes Hx Suicide Attempt: No Hx Bipolar Disorder: No Hx Schizophrenia: No Other Medical History: DENIES - Patient Surgical History Past Surgical History: Yes Hx Neurologic Surgery: No Hx Cataract Extraction: No Hx Cardiac Surgery: No Hx Lung Surgery: No Hx Breast Surgery: No Hx Breast Biopsy: No Hx Abdominal Surgery: No Hx Appendectomy: No Hx Cholecystectomy: No Hx Genitourinary Surgery: No Hx Section: No Hx Orthopedic Surgery: Yes (laminectomy/Back and Left Shoulder) Other Surgical History: H/O L ARM SKIN GRAFT Anesthesia Reaction: No - PPD History Previous Implant?: Yes Documented Results: Negative w/proof Implanted On Prior [facility] Admission?: Yes Date: 12/09/16 Results: 0 MM PPD to be Administered?: No - Smoking Cessation Smoking history: Former smoker Have you smoked in the past 12 months: No Aproximately how many cigarettes per day: 0 Cigars Per Day: 0 Hx Chewing Tobacco Use: No Initiated information on smoking cessation: No - Substance & Tx. History Hx Alcohol Use: Yes Hx Substance Use: Yes Substance Use Type: Alcohol Hx Substance Use Treatment: Yes ([facility]) - Substances Abused BEER Route: Oral Frequency: Daily Amount used: 3/6 PACKS Age of first use: 16 Date of Last Use: 04/09/17 Family Disease History - Family Disease History Family Disease History: CA: Mother (BREAST CA. AND ), Other: Father (ETOH DEPENDENT AND ) Admission Physical Exam [facility] - Physical General Appearance: Yes: Appropriately Dressed, Tremorous, Anxious HEENTM: Yes: EOMI, Normocephalic, Normal Voice, Pharynx Normal, Other (POOR DENTITION MISSING TEETH) Respiratory: Yes: Chest Non-Tender, Lungs Clear, Normal Breath Sounds, No Respiratory Distress, No Accessory Muscle Use Neck: Yes: No masses,lesions,Nodules, Supple, Trachea in good position Breast: Yes: Breast Exam Deferred Cardiology: Yes: Regular Rhythm, Regular Rate, S1, S2 Abdominal: Yes: Normal Bowel Sounds, Non Tender, Soft Genitourinary: Yes: Within Normal Limits Back: Yes: Decreased Range of Motion, Surgical Scar Musculoskeletal: Yes: full range of Motion, Back pain, Other (UNSTEADY GAIT/ ATAXIA) Extremities: Yes: Normal Range of Motion, Non-Tender, Tremors Neurological: Yes: Alert, Respond to painful stimul Integumentary: Yes: Dry, Warm Lymphatic: Yes: Within Normal Limits - Diagnostic (1) Abnormality of gait due to impairment of balance Current Visit: Yes Status: Chronic (2) Alcohol dependence with uncomplicated withdrawal Current Visit: Yes Status: Chronic (3) Chronic back pain Current Visit: Yes Status: Chronic Qualifiers: Back pain location: low back pain Back pain laterality: midline Sciatica presence: with sciatica Sciatica laterality: sciatica of right side Qualified Code(s): M54.41 - Lumbago with sciatica, right side; G89.29 - Other chronic pain (4) Asthma Current Visit: Yes Status: Chronic Qualifiers: Asthma severity: moderate persistent Asthma complication type: uncomplicated Qualified Code(s): J45.40 - Moderate persistent asthma, uncomplicated (5) COPD (chronic obstructive pulmonary disease) Current Visit: Yes Status: Chronic Qualifiers: COPD type: COPD with acute exacerbation Qualified Code(s): J44.1 - Chronic obstructive pulmonary disease with (acute) exacerbation Cleared for Admission BHS - Detox or Rehab B[facility] Level of Care: Medically Managed Detox Regimen/Protocol: Librium BHS Breath Alcohol Content Breath Alcohol Content: 0 Vital Signs - Vital Signs Vital Signs Refused: No Temperature: 96.9 F Temperature Source: Oral Pulse Rate: 64 Respiratory Rate: 20 Blood Pressure: 146/89 BP Location: Left Arm Blood Pressure Position: Sitting - Height Height: 6 ft - Weight Weight: 98.883 kg Weight Measurement Method: Standing Scale Body Mass Index (BMI): 29.5 Urine Drug Screen - Test Device Lot Number: [id number] Expiration Date: 12/27/18 - Control Is Test Valid: Yes - Results Drug Screen Negative: Yes
[2017-04-12 04:18] VITALS: BMI 29.5
[2017-04-12] MEDS ORDERED: MENTHOL/PHENOL 1 EACH UD MM PRN (04:21)
[2017-04-12] MEDS ORDERED: NICOTINE POLACRILEX 2 MG GUM BUC PRN (04:21)
[2017-04-12] MEDS ORDERED: LOPERAMIDE HCL 2 MG CAPSULE PO PRN (04:21)
[2017-04-12] MEDS ORDERED: P-EPHED 60MG/TRIPROLIDI 2.5MG TABLET PO PRN (04:21)
[2017-04-12] MEDS ORDERED: chlordiazePOXIDE HCL 25 MG CAPSULE PO PRN (04:21)
[2017-04-12] MEDS ORDERED: hydrOXYzine PAMOATE 50 MG CAPSULE (FP) PO PRN (04:21)
[2017-04-12] MEDS ORDERED: MAGNESIUM HYDROX 2400MG/30ML ORAL SUSPENSION 30 ML CUP PO PRN (04:21)
[2017-04-12] MEDS ORDERED: diphenhydrAMINE HCL 50 MG CAPSULE PO PRN (04:21)
[2017-04-12] MEDS ORDERED: MAGNESIUM CITRATE 300 ML BOTTLE PO PRN (04:21)
[2017-04-12] MEDS ORDERED: guaiFENesin/D-METHORPHAN HB 10 ML UNIT-DOSE CUPS PO PRN (04:21)
[2017-04-12] MEDS ORDERED: ALBUTEROL SO4 18 GM HFA INHALER IH PRN (04:26)
[2017-04-12] MEDS: chlordiazePOXIDE HCL 25 MG CAPSULE PO SCH ×4 (05:00→22:15)
--- NOTE | 2017-04-12 08:36 | CONSULT ---
[facility] Psychiatric Consult - Data Date of interview: 04/12/17 Admission source: [facility] Identifying data: This is 61 years old male with no psychiatric hospitalization history intoxicated with: Alcohol and Nicotine Substance Abuse History: Smoking Cessation. Smoking history: Former smoker. Have you smoked in the past 12 months: No. Aproximately how many cigarettes per day: 0. Cigars Per Day: 0. Hx Chewing Tobacco Use: No. Initiated information on smoking cessation: No. - Substance & Tx. History. Hx Alcohol Use: Yes. Hx Substance Use: Yes. Substance Use Type: Alcohol. Hx Substance Use Treatment: Yes ([facility]). - Substances Abused. BEER. Route: Oral. Frequency: Daily. Amount used: 3/6 PACKS. Age of first use: 16. Date of Last Use: 04/09/17 Medical History: Asthma, LBP, COPD, Costochondritis, GERD, Neuropathy Psychiatric History: Patient reprots no psychiatric history, as per computer there is a jistory of depression Physical/Sexual Abuse/Trauma History: Denies Additional Comment: Observation. Detox Unti Care Protocol Mental Status Exam - Mental Status Exam Alert and Oriented to: Person Cognitive Function: Fair Patient Appearance: Well Groomed Mood: Apprehensive Affect: Mood Congruent Patient Behavior: Cooperative Speech Pattern: Appropriate Voice Loudness: Normal Thought Process: Goal Oriented Thought Disorder: Being Controlled Hallucinations: Denies Suicidal Ideation: Denies Homicidal Ideation: Denies Insight/Judgement: Fair Sleep: Difficulty falling asleep Appetite: Weight gain Muscle strength/Tone: Normal Gait/Station: Shuffling Additional Comments: Observation. 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 Detox Unti Care Protocol
[2017-04-12 09:52] LABS: GLUCOSE,RANDOM 79 mg/dL (74-106)
[2017-04-12 09:58] LABS: MCH 31.1 pg (25.7-33.7); MCHC 33.9 g/dl (32.0-35.9); MEAN CELL VOLUME 91.6 fl (80-96); MEAN PLT VOLUME 9.4 fl (7.5-11.1); PLATELET COUNT 157 K/MM3 (134-434); RDW 12.8 % (11.9-15.9); WHITE BLOOD COUNT 6.6 K/mm3 (4.0-10.0)
[2017-04-12 10:01] LABS: ALBUMIN 3.2 g/dl (3.4-5.0); ALK PHOS 75 U/L (45-117); ANION GAP 4 (8-16); BILIRUBIN,TOTAL 1.3 mg/dL (0.2-1.0); CALCIUM 8.2 mg/dL (8.5-10.1); CO2 28 mmol/L (21-32); CREATININE 0.8 mg/dL (0.7-1.3); SGOT/AST 16 U/L (15-37); SGPT/ALT 26 U/L (12-78); TOT PROT 6.6 g/dl (6.4-8.2)
[2017-04-12] MEDS: PRENATAL VITAMINS W/ FOLIC ACID TABLET (FP) PO SCH (10:49)
[2017-04-12] MEDS: IBUPROFEN 400 MG TABLET (FP) PO PRN ×2 (10:51→18:03)
--- NOTE | 2017-04-12 11:34 | PN ---
[facility] Progress Note Note: Vital Signs - 24 hr 04/12/17 04/12/17 04/12/17 04:20 06:50 09:58 Temperature 96.9 F L 98.1 F 97.7 F Pulse Rate 64 84 59 L Respiratory 20 18 16 Rate Blood Pressure 146/89 147/79 114/69 Laboratory Tests 04/12/17 04/12/17 07:50 07:50 WBC 6.6 RBC 4.52 Hgb 14.0 Hct 41.4 MCV 91.6 MCH 31.1 MCHC 33.9 RDW 12.8 Plt Count 157 MPV 9.4 Sodium 141 Potassium 3.8 D Chloride 109 H Carbon Dioxide 28 Anion Gap 4 L BUN 9 D Creatinine 0.8 Creat Clearance w eGFR > 60 Random Glucose 79 D Calcium 8.2 L Total Bilirubin 1.3 H D AST 16 ALT 26 Alkaline Phosphatase 75 Total Protein 6.6 Albumin 3.2 L patient stable, admitted last night
[2017-04-12] MEDS ORDERED: FLU VACCINE QUAD 60 MCG/0.5 ML (MDV 17-18) IM ONE (12:00)
[2017-04-12] MEDS: MAG HYDROX/AL HYDROX/SIMETH 30 ML UNIT-DOSE CUP PO PRN (18:05)
[2017-04-12] MEDS: THIAMINE HCL 100 MG TABLET (FP) PO SCH (22:15)
[2017-04-13 00:35] LABS: URINE APPEARANCE CLEAR; URINE BILIRUBIN NEGATIVE (NEGATIVE); URINE BLOOD NEGATIVE (NEGATIVE); URINE COLOR LTYELLOW; URINE GLUCOSE (UA) NEGATIVE (NEGATIVE); URINE KETONE NEGATIVE (NEGATIVE); URINE LEUK ESTERASE NEGATIVE (NEGATIVE); URINE NITRITE NEGATIVE (NEGATIVE); URINE PROTEIN NEGATIVE (NEGATIVE); URINE UROBILINOGEN NEGATIVE mg/dL (0.2-1.0)
[2017-04-13] MEDS: chlordiazePOXIDE HCL 25 MG CAPSULE PO SCH ×4 (06:05→22:44)
[2017-04-13] MEDS: PRENATAL VITAMINS W/ FOLIC ACID TABLET (FP) PO SCH (10:37)
[2017-04-13] MEDS: IBUPROFEN 400 MG TABLET (FP) PO PRN ×3 (10:38→22:43)
--- NOTE | 2017-04-13 11:07 | PN ---
S CIWA - CIWA Score Nausea/Vomitin Muscle Tremors: 4-Moderate,w/Arms Extend Anxiety: 4-Mod. Anxious/Guarded Agitation: 4-Moderately Restless Paroxysmal Sweats: 3 Orientation: 0-Oriented Tacttile Disturbances: 1-Very Mild Itch/Numbness Auditory Disturbances: 0-None Visual Disturbances: 0-None Headache: 1-Very Mild CIWA-Ar Total Score: 20 BHS Progress Note (SOAP) Subjective: nausea, sweats, interrupted sleep, anxiety, tremors Objective: 04/13/17 11:06 Vital Signs - 24 hr 04/12/17 04/12/17 04/12/17 13:01 18:59 22:03 Temperature 97.5 F L 98.2 F 97.9 F Pulse Rate 64 75 67 Respiratory 16 16 18 Rate Blood Pressure 133/74 132/74 110/61 04/13/17 04/13/17 04/13/17 00:30 03:30 06:00 Temperature 97.7 F Pulse Rate 50 L Respiratory 18 18 18 Rate Blood Pressure 124/68 04/13/17 09:35 Temperature 97.5 F L Pulse Rate 69 Respiratory 18 Rate Blood Pressure 110/70 Laboratory Tests 04/12/17 04/12/17 04/12/17 07:50 07:50 07:50 WBC 6.6 RBC 4.52 Hgb 14.0 Hct 41.4 MCV 91.6 MCH 31.1 MCHC 33.9 RDW 12.8 Plt Count 157 MPV 9.4 Sodium 141 Potassium 3.8 D Chloride 109 H Carbon Dioxide 28 Anion Gap 4 L BUN 9 D Creatinine 0.8 Creat Clearance w eGFR > 60 Random Glucose 79 D Calcium 8.2 L Total Bilirubin 1.3 H D AST 16 ALT 26 Alkaline Phosphatase 75 Total Protein 6.6 Albumin 3.2 L Urine Color Urine Appearance Urine pH Ur Specific [place] Urine Protein Urine Glucose (UA) Urine Ketones Urine Blood Urine Nitrite Urine Bilirubin Urine Urobilinogen RPR Titer Nonreactive 04/12/17 21:56 WBC RBC Hgb Hct MCV MCH MCHC RDW Plt Count MPV Sodium Potassium Chloride Carbon Dioxide Anion Gap BUN Creatinine Creat Clearance w eGFR Random Glucose Calcium Total Bilirubin AST ALT Alkaline Phosphatase Total Protein Albumin Urine Color Ltyellow Urine Appearance Clear Urine pH 6.0 Ur Specific [place] 1.015 Urine Protein Negative Urine Glucose (UA) Negative Urine Ketones Negative Urine Blood Negative Urine Nitrite Negative Urine Bilirubin Negative Urine Urobilinogen Negative RPR Titer Assessment: 04/13/17 11:07 withdrawal sx, abnormal lfts Plan: cont detox, fluids, bradycardia, encourage ambulations
[2017-04-13] MEDS: THIAMINE HCL 100 MG TABLET (FP) PO SCH (22:42)
[2017-04-13] MEDS: MAG HYDROX/AL HYDROX/SIMETH 30 ML UNIT-DOSE CUP PO PRN (22:46)
[2017-04-14] MEDS: chlordiazePOXIDE 5 MG CAPSULE PO SCH ×4 (06:36→22:23)
[2017-04-14] MEDS: PRENATAL VITAMINS W/ FOLIC ACID TABLET (FP) PO SCH (11:01)
[2017-04-14] MEDS: ACETAMINOPHEN 325 MG TABLET (FP) PO PRN ×3 (11:02→22:24)
--- NOTE | 2017-04-14 12:17 | PN ---
S CIWA - CIWA Score Nausea/Vomitin Muscle Tremors: 2 Anxiety: 2 Agitation: 2 Paroxysmal Sweats: 2 Orientation: 0-Oriented Tacttile Disturbances: 2-Mild Itch/Numbness/Burn Auditory Disturbances: 1-Very Mild Visual Disturbances: 1-Very Mild Sensitivity Headache: 2-Mild CIWA-Ar Total Score: 16 BHS Progress Note (SOAP) Subjective: Interrupted sleep, tremors, abdominal cramps Objective: 04/14/17 12:17 Vital Signs - 8 hr 04/14/17 04/14/17 06:35 10:53 Temperature 97.5 F L 96.6 F L Pulse Rate 57 L 72 Respiratory 16 18 Rate Blood Pressure 124/71 124/78 Laboratory Last Values WBC 6.6 K/mm3 (4.0-10.0) 04/12/17 07:50 RBC 4.52 M/mm3 (4.00-5.60) 04/12/17 07:50 Hgb 14.0 GM/dL (11.7-16.9) 04/12/17 07:50 Hct 41.4 % (35.4-49) 04/12/17 07:50 MCV 91.6 fl (80-96) 04/12/17 07:50 MCH 31.1 pg (25.7-33.7) 04/12/17 07:50 MCHC 33.9 g/dl (32.0-35.9) 04/12/17 07:50 RDW 12.8 % (11.9-15.9) 04/12/17 07:50 Plt Count 157 K/MM3 (134-434) 04/12/17 07:50 MPV 9.4 fl (7.5-11.1) 04/12/17 07:50 Sodium 141 mmol/L (136-145) 04/12/17 07:50 Potassium 3.8 mmol/L (3.5-5.1) D 04/12/17 07:50 Chloride 109 mmol/L (98-107) H 04/12/17 07:50 Carbon Dioxide 28 mmol/L (21-32) 04/12/17 07:50 Anion Gap 4 (8-16) L 04/12/17 07:50 BUN 9 mg/dL (7-18) D 04/12/17 07:50 Creatinine 0.8 mg/dL (0.7-1.3) 04/12/17 07:50 Creat Clearance w eGFR > 60 (>60) 04/12/17 07:50 Random Glucose 79 mg/dL (74-106) D 04/12/17 07:50 Calcium 8.2 mg/dL (8.5-10.1) L 04/12/17 07:50 Total Bilirubin 1.3 mg/dL (0.2-1.0) H D 04/12/17 07:50 AST 16 U/L (15-37) 04/12/17 07:50 ALT 26 U/L (12-78) 04/12/17 07:50 Alkaline Phosphatase 75 U/L (45-117) 04/12/17 07:50 Total Protein 6.6 g/dl (6.4-8.2) 04/12/17 07:50 Albumin 3.2 g/dl (3.4-5.0) L 04/12/17 07:50 Urine Color Ltyellow 04/12/17 21:56 Urine Appearance Clear 04/12/17 21:56 Urine pH 6.0 (5.0-8.0) 04/12/17 21:56 Ur Specific [place] 1.015 (1.005-1.025) 04/12/17 21:56 Urine Protein Negative (NEGATIVE) 04/12/17 21:56 Urine Glucose (UA) Negative (NEGATIVE) 04/12/17 21:56 Urine Ketones Negative (NEGATIVE) 04/12/17 21:56 Urine Blood Negative (NEGATIVE) 04/12/17 21:56 Urine Nitrite Negative (NEGATIVE) 04/12/17 21:56 Urine Bilirubin Negative (NEGATIVE) 04/12/17 21:56 Urine Urobilinogen Negative mg/dL (0.2-1.0) 04/12/17 21:56 RPR Titer Nonreactive (NONREACTIVE) 04/12/17 07:50 labs noted Assessment: 04/14/17 12:17 withdrawal sx Plan: continue detox
[2017-04-14] MEDS: MAG HYDROX/AL HYDROX/SIMETH 30 ML UNIT-DOSE CUP PO PRN (22:23)
[2017-04-14] MEDS: THIAMINE HCL 100 MG TABLET (FP) PO SCH (22:23)
[2017-04-15] MEDS: chlordiazePOXIDE HCL 10 MG CAPSULE PO SCH ×4 (05:50→22:50)
[2017-04-15] MEDS: PRENATAL VITAMINS W/ FOLIC ACID TABLET (FP) PO SCH (10:46)
[2017-04-15] MEDS: IBUPROFEN 400 MG TABLET (FP) PO PRN ×2 (10:47→22:54)
--- NOTE | 2017-04-15 15:42 | PN ---
BHS Progress Note (SOAP) Subjective: Sweating,interrupted sleep,restless Objective: 04/15/17 15:40 Vital Signs - 8 hr 04/15/17 04/15/17 10:17 13:37 Temperature 97.9 F 97.0 F L Pulse Rate 70 64 Respiratory 18 18 Rate Blood Pressure 108/57 119/72 Laboratory Last Values WBC 6.6 K/mm3 (4.0-10.0) 04/12/17 07:50 RBC 4.52 M/mm3 (4.00-5.60) 04/12/17 07:50 Hgb 14.0 GM/dL (11.7-16.9) 04/12/17 07:50 Hct 41.4 % (35.4-49) 04/12/17 07:50 MCV 91.6 fl (80-96) 04/12/17 07:50 MCH 31.1 pg (25.7-33.7) 04/12/17 07:50 MCHC 33.9 g/dl (32.0-35.9) 04/12/17 07:50 RDW 12.8 % (11.9-15.9) 04/12/17 07:50 Plt Count 157 K/MM3 (134-434) 04/12/17 07:50 MPV 9.4 fl (7.5-11.1) 04/12/17 07:50 Sodium 141 mmol/L (136-145) 04/12/17 07:50 Potassium 3.8 mmol/L (3.5-5.1) D 04/12/17 07:50 Chloride 109 mmol/L (98-107) H 04/12/17 07:50 Carbon Dioxide 28 mmol/L (21-32) 04/12/17 07:50 Anion Gap 4 (8-16) L 04/12/17 07:50 BUN 9 mg/dL (7-18) D 04/12/17 07:50 Creatinine 0.8 mg/dL (0.7-1.3) 04/12/17 07:50 Creat Clearance w eGFR > 60 (>60) 04/12/17 07:50 Random Glucose 79 mg/dL (74-106) D 04/12/17 07:50 Calcium 8.2 mg/dL (8.5-10.1) L 04/12/17 07:50 Total Bilirubin 1.3 mg/dL (0.2-1.0) H D 04/12/17 07:50 AST 16 U/L (15-37) 04/12/17 07:50 ALT 26 U/L (12-78) 04/12/17 07:50 Alkaline Phosphatase 75 U/L (45-117) 04/12/17 07:50 Total Protein 6.6 g/dl (6.4-8.2) 04/12/17 07:50 Albumin 3.2 g/dl (3.4-5.0) L 04/12/17 07:50 Urine Color Ltyellow 04/12/17 21:56 Urine Appearance Clear 04/12/17 21:56 Urine pH 6.0 (5.0-8.0) 04/12/17 21:56 Ur Specific [place] 1.015 (1.005-1.025) 04/12/17 21:56 Urine Protein Negative (NEGATIVE) 04/12/17 21:56 Urine Glucose (UA) Negative (NEGATIVE) 04/12/17 21:56 Urine Ketones Negative (NEGATIVE) 04/12/17 21:56 Urine Blood Negative (NEGATIVE) 04/12/17 21:56 Urine Nitrite Negative (NEGATIVE) 04/12/17 21:56 Urine Bilirubin Negative (NEGATIVE) 04/12/17 21:56 Urine Urobilinogen Negative mg/dL (0.2-1.0) 04/12/17 21:56 RPR Titer Nonreactive (NONREACTIVE) 04/12/17 07:50 labs noted Assessment: 04/15/17 15:41 withdrawal sx. Plan: Continue detox
[2017-04-15] MEDS: MAG HYDROX/AL HYDROX/SIMETH 30 ML UNIT-DOSE CUP PO PRN (20:00)
[2017-04-15] MEDS: THIAMINE HCL 100 MG TABLET (FP) PO SCH (23:04)
[2017-04-16] MEDS: MAG HYDROX/AL HYDROX/SIMETH 30 ML UNIT-DOSE CUP PO PRN (05:27)
--- NOTE | 2017-04-16 08:40 | DS ---
[facility] Detox Discharge Summary Admission Date: 04/12/17 Discharge Date: 04/16/17 - History Present History: Alcohol Dependence Additional Comments: follow up with after care program as arrangement Pertinent Past History: chronic low alysa pain asthma copd - Physical Exam Results Vital Signs: Vital Signs Temperature 97.1 F L 04/16/17 06:13 Pulse Rate 50 L 04/16/17 06:13 Respiratory Rate 16 04/16/17 06:13 Blood Pressure 102/66 04/16/17 06:13 O2 Sat by Pulse Oximetry (%) Pertinent Admission Physical Exam Findings: withdrawal symptom - Treatment Hospital Course: Detox Protocol Followed, Detoxed Safely, Responded well, Discharged Condition Good Patient has Accepted a Rehab Referral to: declined - Medication Discharge Medications: Ambulatory Orders NK [No Known Home Medication] 04/12/17 - Diagnosis (1) Alcohol dependence with uncomplicated withdrawal Current Visit: Yes Status: Chronic (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 Current Visit: Yes Status: Acute (3) Asthma Current Visit: Yes Status: Chronic Qualifiers: Asthma severity: mild intermittent Asthma complication type: uncomplicated Qualified Code(s): J45.20 - Mild intermittent asthma, uncomplicated (4) COPD (chronic obstructive pulmonary disease) Current Visit: Yes Status: Chronic Qualifiers: COPD type: COPD with acute exacerbation Qualified Code(s): J44.1 - Chronic obstructive pulmonary disease with (acute) exacerbation (5) Chronic back pain Current Visit: Yes Status: Chronic Qualifiers: Back pain location: low back pain Back pain laterality: midline Sciatica presence: with sciatica Sciatica laterality: sciatica of right side Qualified Code(s): M54.41 - Lumbago with sciatica, right side; G89.29 - Other chronic pain - AMA Did Patient Leave Against Medical Advice: No
[2017-04-16 13:34] VITALS: BP 125/73; PULSE 763; TEMP 98.1
== END 2017-04-16 12:30 | disposition home or self-care (01) | DRG 897 ==
LOC: YASAS 03:42 → Y6N 04:17
PROVIDERS: ADMIT Internal Medicine Addiction Medicine; ATTEND Internal Medicine Addiction Medicine
PROC: HZ2ZZZZ Detoxification Services for Substance Abuse Treatment (ICD-10-PCS; principal; 2017-04-12)
DX: F10.230 Alcohol dependence with withdrawal, uncomplicated (principal); J44.1 Chronic obstructive pulmonary disease with (acute) exacerbation; F19.24 Other psychoactive substance dependence with psychoactive substance-induced mood disorder; F10.20 Alcohol dependence, uncomplicated; F14.14 Cocaine abuse with cocaine-induced mood disorder; K70.30 Alcoholic cirrhosis of liver without ascites; J45.20 Mild intermittent asthma, uncomplicated; M54.41 Lumbago with sciatica, right side; G89.29 Other chronic pain; R26.89 Other abnormalities of gait and mobility
CPT/HCPCS: 36415; 70450-TC; 80053; 81003; 85027; 86593; 90688; 93005; 93010; 99282-25; G0008

== ENCOUNTER 2017-05-01 23:28 | Observation (INO) | payer OTHER ==
[2017-05-01 23:37] VITALS: BMI 29.5
--- NOTE | 2017-05-01 23:58 | PDOC ---
History of Present Illness <Kristal Torres - Last Filed: 05/02/17 01:48> <Irais Cardenas - Last Filed: 05/02/17 02:48> <Flex Caraballo - Last Filed: 05/02/17 05:58> - General Chief Complaint: Palpitations Stated Complaint: PALPITATIONS Time Seen by Provider: 05/01/17 23:33 - History of Present Illness Initial Comments: 05/02/17 00:38 The patient is a 61 year old male, with a significant past medical history of asthma, liver cirrhosis, and COPD, who presents to the emergency department complaining of palpitations. The patient states that he was watching T.V. when he began to feel his heart racing. Patient states associated symptoms of nausea and headache. He denies any recent fevers, chills, dizziness. He denies any recent nausea, vomit, diarrhea or constipation. He denies any recent shortness of breath. He denies any recent dysuria, frequency, urgency or hematuria. Allergies: NKA Past surgical history: Laminectomy. Left shoulder surgery. Social History: Nonsmoker. Longstanding history of EtOH abuse . Primary Care Physician: Nathan Stein (Kristal Torres) Past History <Kristal Torres - Last Filed: 05/02/17 01:48> - Past Medical History Anemia: No Asthma: Yes Cancer: No Cardiac Disorders: No CVA: No COPD: Yes CHF: No Dementia: No Diabetes: No GI Disorders: No Disorders: No HTN: No Hypercholesterolemia: No Kidney Stones: No Liver Disease: Yes (cirrhosis ) Seizures: No Thyroid Disease: No - Surgical History Abdominal Surgery: No Appendectomy: No Cardiac Surgery: No Cholecystectomy: No Lung Surgery: No Neurologic Surgery: No Orthopedic Surgery: Yes (laminectomy/Back and Left Shoulder) - Reproductive History Testicular Surgery: No - Immunization History Immunization Up to Date: Yes - Suicide/Smoking/Psychosocial Hx Smoking History: Never smoked Have you smoked in the past 12 months: No Number of Cigarettes Smoked Daily: 0 Cigars Per Day: 0 Information on smoking cessation initiated: No 'Breaking Loose' booklet given: 12/06/16 Hx Alcohol Use: Yes Drug/Substance Use Hx: No Substance Use Type: Alcohol Hx Substance Use Treatment: Yes ([facility]) <Irais Cardenas - Last Filed: 05/02/17 02:48> <Flex Caraballo - Last Filed: 05/02/17 05:58> - Past Medical History Allergies/Adverse Reactions: Allergies Allergy/AdvReac Type Severity Reaction Status Date / Time No Known Allergies Allergy Verified 05/01/17 23:34 Home Medications: Ambulatory Orders NK [No Known Home Medication] 05/01/17 Cardiac Specific PMH - Complaint Specific PMHX Pacemaker: No <Irais aCrdenas - Last Filed: 05/02/17 02:48> Review of Systems <Kristal Torres - Last Filed: 05/02/17 01:48> <Irais Cardenas - Last Filed: 05/02/17 02:48> <Flex Caraballo - Last Filed: 05/02/17 05:58> - Review of Systems Comments:: 05/02/17 00:15 CONSTITUTIONAL: Present: unsteady gait Absent: fever, no chills, no fatigue EYES: Absent: visual changes ENT: Absent: ear pain, no sore throat CARDIOVASCULAR: Present: chest pain, palpitations RESPIRATORY: Absent: cough, no SOB GI: Present: nausea Absent: abdominal pain, no vomiting, no constipation, no diarrhea GENITOURINARY: Absent: dysuria, no frequency, no hematuria MUSCULOSKELETAL: Absent: back pain, no arthralgia, no myalgia SKIN: Absent: rash NEURO: Present: headache, hand tremors. (Kristal Torres) *Physical Exam <Kristal Torres - Last Filed: 05/02/17 01:48> <Irais Cardenas - Last Filed: 05/02/17 02:48> <Flex Caraballo - Last Filed: 05/02/17 05:58> - Vital Signs Last Vital Signs Temp Pulse Resp BP Pulse Ox 98.7 F 54 L 16 136/79 100 05/01/17 23:35 05/02/17 01:59 05/02/17 01:59 05/02/17 01:59 05/02/17 01:59 - Physical Exam Comments: 05/02/17 00:16 GENERAL: Well-appearing, well-nourished. No apparent distress. HEENT: Normocephalic, atraumatic. PERRL, EOM intact. CARDIOVASCULAR: Normal S1, S2. Regular rate and rhythm. PULMONARY: Clear to auscultation bilaterally. ABDOMEN: Soft, non-distended, non-tender. EXTREMITIES: +1 pitting edema in extremities. +hand tremors. Normal ROM in all four extremities. No gross deformities. SKIN: Warm, dry. No rash NEUROLOGICAL: +unsteady gait +ataxic (Kristal Torres) ED Treatment Course - LABORATORY CBC & Chemistry Diagram: 05/02/17 00:15 05/02/17 00:15 <Kristal Torres - Last Filed: 05/02/17 01:48> - LABORATORY CBC & Chemistry Diagram: 05/02/17 00:15 05/02/17 00:15 <Irais Cardenas - Last Filed: 05/02/17 02:48> - LABORATORY CBC & Chemistry Diagram: 05/02/17 00:15 05/02/17 00:15 <Flex Caraballo - Last Filed: 05/02/17 05:58> - ADDITIONAL ORDERS Additional order review: Laboratory Results 05/02/17 05/02/17 00:15 00:15 PT with INR 13.70 H INR 1.24 H Sodium 142 Potassium 4.1 Chloride 105 Carbon Dioxide 28 Anion Gap 9 BUN 17 D Creatinine 0.9 Creat Clearance w eGFR > 60 Random Glucose 97 D Calcium 8.5 Magnesium 2.0 Total Bilirubin 1.1 H AST 15 ALT 25 Alkaline Phosphatase 87 Creatine Kinase 85 Troponin I < 0.02 B-Natriuretic Peptide 233.49 H Total Protein 7.3 Albumin 3.8 05/02/17 00:15 RBC 4.55 MCV 92.7 MCHC 33.8 RDW 12.9 MPV 9.6 Neutrophils % 59.1 Lymphocytes % 29.0 Monocytes % 9.0 Eosinophils % 2.1 Basophils % 0.8 - RADIOLOGY Radiograph Interpretation: 05/02/17 05:56 Exam: Chest CTA Interpreted by Dr. Campuzano IMPRESSION: Haziness in the small bowel mesenteric fat with some mildly prominent mesenteric lymph nodes suggesting panniculitis and mesenteric adenitis Mild atherosclerotic changes in the abdominal aorta with no aneurysm or dissection. No pulmonary embolism. Mesenteric lymph node enlargement is nonspecific likely related to recent inflammation 4 mm nonspecific pulmonary nodule. (Flex Caraballo) - Medications Given in the ED: ED Medications Discontinued Medications Generic Name Dose Route Start Last Admin Trade Name Freq PRN Reason Stop Dose Admin Aspirin 162 mg 05/02/17 00:04 05/02/17 00:25 Asa - PO 05/02/17 00:05 162 mg ONCE ONE Administration Medical Decision Making <Kristal Torres - Last Filed: 05/02/17 01:48> <Irais Cardenas - Last Filed: 05/02/17 02:48> <Flex Caraballo - Last Filed: 05/02/17 05:58> - Medical Decision Making 05/02/17 02:44 65-year-old male brought in by ambulance for chest pain that occurred while at rest. The pain did not radiate to his arms or jaws. EKG didn't show any signs of acute ischemia. However, the patient was very bradycardic upon arrival. Past medical history significant for chronic alcohol abuse. He was last discharged from alcohol detox the . Patient states he has abstained from alcohol for 3 weeks. Patient states that he does have a history of some speech and gait disturbances since resolved with his long time alcohol use. (Irais Cardenas) *DC/Admit/Observation/Transfer <Kristal Torres - Last Filed: 05/02/17 01:48> - Discharge Dispostion Admit: Yes <Irais Cardenas - Last Filed: 05/02/17 02:48> <Flex Caraballo - Last Filed: 05/02/17 05:58> Diagnosis at time of Disposition: Palpitations, Bradycardia, Unsteady gait, Chest pain in adult, Abnormality of gait due to impairment of balance - Referrals - Attestations Scribe Attestion: 05/02/17 00:17 Documentation prepared by Kristal Torres, acting as certified medical biller for Irais Cardenas MD. (Kristal Torres)
[2017-05-02] MEDS ORDERED: ASPIRIN 81 MG CHEWABLE TABLETS PO ONE (00:04)
[2017-05-02] MEDS ORDERED: ASPIRIN 81 MG CHEWABLE TABLETS ONE (00:22)
[2017-05-02 00:35] LABS: BASOPHIL 0.8 % (0-2.0); EOSINOPHIL 2.1 % (0-4.5); MCH 31.3 pg (25.7-33.7); MCHC 33.8 g/dl (32.0-35.9); MEAN CELL VOLUME 92.7 fl (80-96); MEAN PLT VOLUME 9.6 fl (7.5-11.1); NEUTROPHILS 59.1 % (42.8-82.8); PLATELET COUNT 168 K/MM3 (134-434); RDW 12.9 % (11.9-15.9); WHITE BLOOD COUNT 5.7 K/mm3 (4.0-10.0)
[2017-05-02 00:48] LABS: INR 1.24 (0.82-1.09); PROTHROMBIN TIME (PATIENT) 13.7 SEC (9.98-11.88)
[2017-05-02 00:56] LABS: ALBUMIN 3.8 g/dl (3.4-5.0); ANION GAP 9 (8-16); BILIRUBIN,TOTAL 1.1 mg/dL (0.2-1.0); CALCIUM 8.5 mg/dL (8.5-10.1); CO2 28 mmol/L (21-32); CREATININE 0.9 mg/dL (0.7-1.3); GLUCOSE,RANDOM 97 mg/dL (74-106); SGOT/AST 15 U/L (15-37); SGPT/ALT 25 U/L (12-78); TOT PROT 7.3 g/dl (6.4-8.2)
[2017-05-02 00:59] LABS: ALK PHOS 87 U/L (45-117); CPK 85 IU/L (39-308); TROPONIN I < 0.02 ng/ml (0.00-0.05)
[2017-05-02 06:42] LABS: CPK 83 IU/L (39-308); TROPONIN I < 0.02 ng/ml (0.00-0.05)
--- NOTE | 2017-05-02 07:52 | PDOC ---
*Physical Exam - Vital Signs Last Vital Signs Temp Pulse Resp BP Pulse Ox 98.7 F 48 L 16 116/83 100 05/01/17 23:35 05/02/17 06:11 05/02/17 07:23 05/02/17 06:11 05/02/17 07:23 ED Treatment Course - LABORATORY CBC & Chemistry Diagram: 05/02/17 00:15 05/02/17 00:15 - ADDITIONAL ORDERS Additional order review: Laboratory Results 05/02/17 05/02/17 00:15 00:15 PT with INR 13.70 H INR 1.24 H Sodium 142 Potassium 4.1 Chloride 105 Carbon Dioxide 28 Anion Gap 9 BUN 17 D Creatinine 0.9 Creat Clearance w eGFR > 60 Random Glucose 97 D Calcium 8.5 Magnesium 2.0 Total Bilirubin 1.1 H AST 15 ALT 25 Alkaline Phosphatase 87 Creatine Kinase 85 Troponin I < 0.02 B-Natriuretic Peptide 233.49 H Total Protein 7.3 Albumin 3.8 05/02/17 00:15 RBC 4.55 MCV 92.7 MCHC 33.8 RDW 12.9 MPV 9.6 Neutrophils % 59.1 Lymphocytes % 29.0 Monocytes % 9.0 Eosinophils % 2.1 Basophils % 0.8 - Medications Given in the ED: ED Medications Discontinued Medications Generic Name Dose Route Start Last Admin Trade Name Freq PRN Reason Stop Dose Admin Aspirin 162 mg 05/02/17 00:04 05/02/17 00:25 Asa - PO 05/02/17 00:05 162 mg ONCE ONE Administration Medical Decision Making - Medical Decision Making 05/02/17 07:50 Patient signed out to me by Dr. Frost pending CTA read. CTA was read by imaging professor of environmental engineering and reveals panniculitis versus mesenteric adenitis, thus we would like our radiologist to read it for a more clear read. We will be calling radiology when they get in to over read the study. 05/02/17 08:31 I spoke with radiology attending who reports the CT is being read right now and a report will be available in a few minutes. 05/02/17 09:12 CTA read by our radiologist reveals prominent lymph nodes in the mesentery, pulmonary nodules, and a enlarged right hilar lymph node. On reevaluation of the patient he denies any symptoms. He reports his palpitations have resolved. His labs are unremarkable including 2 negative troponins. HR here jose alfredo to the 40s while sleeping and 50s while awake but with blood pressure >110 systolic throughout. While it is unclear why he was having palpitations yesterday his CTA is concerning for enlarged lymph nodes that will require follow-up. I discussed these findings with the patient and advised him to follow-up with his primary doctor within 2-3 days to follow-up on these as they could represent cancer. The patient expressed understanding of my concern. I discussed the physical exam findings, ancillary test results and final diagnoses with the patient. I answered all of the patient's questions. The patient was satisfied with the care received and felt comfortable with the discharge plan and treatment plan. The patient will call their primary care physician within 24 hours to arrange follow-up and will return to the Emergency Department with any new, persistent or worsening symptoms. *DC/Admit/Observation/Transfer Diagnosis at time of Disposition: Bradycardia, Unsteady gait, Chest pain in adult, Abnormality of gait due to impairment of balance, Palpitations - Discharge Dispostion Disposition: HOME Condition at time of disposition: Stable Admit: No - Attestations Physician Attestion: 05/02/17 09:33 I, Dr. Dakota Kenney MD, attest that this document has been prepared under my direction and personally reviewed by me in its entirety. I further attest, that it accurately reflects all work, treatment, procedures and medical decision -making performed by me.
[2017-05-02 09:19] VITALS: BP 147/88; PULSE 53; TEMP 97.8
--- NOTE | 2017-05-02 11:01 | EKG ---
Test Reason : Blood Pressure : / mmHG Vent. Rate : 053 BPM Atrial Rate : 053 BPM P-R Int : 138 ms QRS Dur : 098 ms QT Int : 436 ms P-R-T Axes : 016 019 017 degrees QTc Int : 409 ms SINUS BRADYCARDIA OTHERWISE NORMAL ECG WHEN COMPARED WITH ECG OF 12-APR-2017 04:10, NO SIGNIFICANT CHANGE WAS FOUND Confirmed by ÁNGELA RODRÍGUEZ MD ([id number]) on 05/02/2017 11:00:56 AM Referred By: Confirmed By:ÁNGELA RODRÍGUEZ MD
== END 2017-05-02 10:00 | disposition home or self-care (01) ==
LOC: JER 23:28 → JERBED 05-02 02:49
PROVIDERS: ADMIT Internal Medicine; ATTEND Internal Medicine
DX: R00.2 Palpitations (principal); R00.1 Bradycardia, unspecified; R26.81 Unsteadiness on feet; R07.9 Chest pain, unspecified
CPT/HCPCS: 36415; 71010-TC; 71275-TC; 80053; 83735; 83880; 84484; 85025; 85610; 93005; 93010; 99285-25; G0378

== ENCOUNTER 2017-08-04 15:30 | Inpatient (IN) | payer OTHER ==
[2017-08-04] MEDS: ALBUTEROL SO4 2.5/IPRATROPIUM 0.5 INH SOL 3 ML VIAL.NEB. NEB SCH ×5 (15:50→22:56)
--- NOTE | 2017-08-04 15:52 | PDOC ---
History of Present Illness - General Chief Complaint: Respiratory Stated Complaint: PNEUMONIA Time Seen by Provider: 08/04/17 15:52 - History of Present Illness Initial Comments: 08/04/17 16:00 Mr. Patel is a 61 yo male w/ pmh of asthma, liver cirrhosis, COPD, and alcohol abuse who presents c/o cough productive of clear sputum with shortness of breath since "before ." The patient denies chest pain, headache and dizziness. Denies fever, chills, nausea, vomit, diarrhea and constipation. Denies dysuria, frequency, urgency and hematuria. Allergies: NKDA PCP: Nathan Stein Past History - Past Medical History Allergies/Adverse Reactions: Allergies Allergy/AdvReac Type Severity Reaction Status Date / Time No Known Allergies Allergy Verified 08/04/17 15:36 Home Medications: Ambulatory Orders Unobtainable [Unobtainable] 08/04/17 Anemia: No Asthma: Yes Cancer: No Cardiac Disorders: No CVA: No COPD: Yes CHF: No Dementia: No Diabetes: No GI Disorders: No Disorders: No HTN: No Hypercholesterolemia: No Kidney Stones: No Liver Disease: Yes (cirrhosis ) Seizures: No Thyroid Disease: No - Surgical History Abdominal Surgery: No Appendectomy: No Cardiac Surgery: No Cholecystectomy: No Lung Surgery: No Neurologic Surgery: No Orthopedic Surgery: Yes (laminectomy/Back and Left Shoulder) - Reproductive History Testicular Surgery: No - Immunization History Immunization Up to Date: Yes - Suicide/Smoking/Psychosocial Hx Smoking History: Never smoked Have you smoked in the past 12 months: No Number of Cigarettes Smoked Daily: 0 Cigars Per Day: 0 'Breaking Loose' booklet given: 12/06/16 Hx Alcohol Use: Yes Drug/Substance Use Hx: No Substance Use Type: Alcohol Hx Substance Use Treatment: Yes ([facility]) Review of Systems - Review of Systems Comments:: 08/04/17 16:15 GENERAL/CONSTITUTIONAL: No fever or chills. No weakness. HEAD, EYES, EARS, NOSE AND THROAT: No change in vision. No ear pain or discharge. No sore throat. CARDIOVASCULAR: No chest pain or shortness of breath RESPIRATORY: +Cough with clear sputum and shortness of breath for at least 2 weeks. GASTROINTESTINAL: No nausea, vomiting, diarrhea or constipation. GENITOURINARY: No dysuria, frequency, or change in urination. MUSCULOSKELETAL: No joint or muscle swelling or pain. No neck or back pain. SKIN: No rash NEUROLOGIC: No headache, vertigo, loss of consciousness, or change in strength/ sensation. ENDOCRINE: No increased thirst. No abnormal weight change HEMATOLOGIC/LYMPHATIC: No anemia, easy bleeding, or history of blood clots. ALLERGIC/IMMUNOLOGIC: No hives or skin allergy. *Physical Exam - Vital Signs Last Vital Signs Temp Pulse Resp BP Pulse Ox 98 F 107 H 24 135/90 88 L 08/04/17 15:34 08/04/17 15:34 08/04/17 15:34 08/04/17 15:34 08/04/17 15:34 - Physical Exam Comments: 08/04/17 16:16 GENERAL: +Patient appears acutely dyspneic. Awake, alert, and fully oriented. HEAD: No signs of trauma, normocephalic, atraumatic EYES: PERRLA, EOMI, sclera anicteric, conjunctiva clear ENT: Auricles normal inspection, hearing grossly normal, nares patent, oropharynx clear without exudates. Moist mucosa NECK: Normal ROM, supple, no lymphadenopathy, JVD, or masses LUNGS: +Acutely SOB, diffusely wheezy with crackles appreciated bilaterally. HEART: +Tachycardic, regular rhythm, normal S1 and S2, no murmurs, rubs or gallops, peripheral pulses normal and equal bilaterally. ABDOMEN: Soft, nontender, normoactive bowel sounds. No guarding, no rebound. No masses EXTREMITIES: Normal inspection, Normal range of motion, no edema. No clubbing or cyanosis. NEUROLOGICAL: Cranial nerves II through XII grossly intact. Normal speech, normal gait, no focal sensorimotor deficits SKIN: Warm, Dry, normal turgor, no rashes or lesions noted. 08/04/17 16:39 ED Treatment Course - LABORATORY CBC & Chemistry Diagram: 08/05/17 06:30 08/04/17 16:10 Medical Decision Making - Medical Decision Making 08/04/17 16:34 Mr. Patel is a 61 yo male w/ pmh of asthma, liver cirrhosis, COPD, and alcohol abuse who presents w/ a 2 week history of cough with shortness of breath. This plus poor oxygenation on presentation (88%) and tachycardia prompted sepsis workup with duonebs and nasal cannula. 08/04/17 18:18 Patient reporting generalized resolution of SOB on nasal cannula however remains hesitant about going home as he will be exposed to second hand smoke. Patient also noted to have generalized congestion on chest x-ray. With concern for repeat exacerbation of COPD will admit for overnight observation. 08/04/17 18:52 Patient signed out to Dr. Cardenas for further care. *DC/Admit/Observation/Transfer Diagnosis at time of Disposition: COPD exacerbation - Discharge Dispostion Condition at time of disposition: Stable Admit: Yes - Referrals - Patient Instructions - Post Discharge Activity
[2017-08-04 16:38] LABS: BASO % 1.4 % (0-2.0); EOS % 12.8 % (0-4.5); HEMATOCRIT 49.4 % (35.4-49); HEMOGLOBIN 16.1 GM/dL (11.7-16.9); LYMPH % 25.2 % (8-40); MCH 31.1 pg (25.7-33.7); MCHC 32.6 g/dl (32.0-35.9); MEAN CELL VOLUME 95.5 fl (80-96); MEAN PLT VOLUME 9.2 fl (7.5-11.1); MONO % 7.7 % (3.8-10.2); NEUT % 52.9 % (42.8-82.8); PLATELET COUNT 210 K/MM3 (134-434); RBC 5.17 M/mm3 (4.00-5.60); RDW 13.5 % (11.9-15.9); WHITE BLOOD COUNT 7.2 K/mm3 (4.0-10.0)
[2017-08-04 16:49] LABS: URINE APPEARANCE CLEAR; URINE BILIRUBIN NEGATIVE (NEGATIVE); URINE BLOOD NEGATIVE (NEGATIVE); URINE COLOR YELLOW; URINE GLUCOSE (UA) NEGATIVE (NEGATIVE); URINE KETONE NEGATIVE (NEGATIVE); URINE LEUK ESTERASE NEGATIVE (NEGATIVE); URINE NITRITE NEGATIVE (NEGATIVE); URINE PROTEIN NEGATIVE (NEGATIVE); URINE UROBILINOGEN NEGATIVE mg/dL (0.2-1.0)
[2017-08-04] MEDS ORDERED: ALBUTEROL SO4 2.5/IPRATROPIUM 0.5 INH SOL 3 ML VIAL.NEB. NEB ONE ×5 (17:01→22:59)
--- NOTE | 2017-08-04 17:01 | PDOC ---
Attending Attestation - HPI HPI: 08/04/17 17:45 The patient is a 61 year old male, with a significant past medical history of asthma, COPD, liver cirrhosis, and alcohol abuse who presents to the emergency department with, productive cough with clear sputum for approx. 1 weeks. Patient reports the cough has been consistent since [place] with associated shortness of breath. He denies any recent fevers, chills, headache or dizziness. He denies any recent nausea, vomit, diarrhea or constipation. He denies any recent chest pain. Allergies: NKA Documentation prepared by Ian Mortensen, acting as biomedical electronics technician for Dakota Kenney MD. <Ian Mortensen - Last Filed: 08/04/17 17:45> - Resident Resident Name: Clauido Harkins - ED Attending Attestation I have performed the following: I have examined & evaluated the patient, The case was reviewed & discussed with the resident, I agree w/resident's findings & plan, Exceptions are as noted - Physicial Exam PE: 08/04/17 21:42 GENERAL: Awake, alert, and fully oriented, in mild resp distress HEAD: No signs of trauma EYES: PERRLA, EOMI, sclera anicteric, conjunctiva clear ENT: Auricles normal inspection, hearing grossly normal, nares patent, oropharynx clear without exudates. Moist mucosa NECK: Normal ROM, supple, no lymphadenopathy, JVD, or masses LUNGS: diffuse wheezing, moderate air movement, no crackles, no increased WOB HEART: Regular rate and rhythm, normal S1 and S2, no murmurs, rubs or gallops ABDOMEN: Soft, nontender, normoactive bowel sounds. No guarding, no rebound. No masses EXTREMITIES: Normal range of motion, no edema. No clubbing or cyanosis. No cords, erythema, or tenderness NEUROLOGICAL: Normal speech, cranial nerves intact, negative pronator drift, 5/ 5 strength in all 4 extremities, normal sensation to light touch in all 4 extremities, normal cerebellar exam, normal gait, normal reflexes and tone SKIN: Warm, Dry, normal turgor, no rashes or lesions noted. - Medical Decision Making 08/04/17 21:00 61yo M hx COPD p/w COPD exacerbation. Hypoxic on arrival to 88% with diffuse wheezing. Despite improvement in lung sounds after nebs, pt reports he still feels SOB and continues to have a 2-3L oxygen requirement. WIll admit for COPD exac. Case discussed in detail with admitting physician including history, physical exam and ancillary studies. Admitting physician has assumed care for the patient, will follow all pending diagnostics and will complete the evaluation and treatment. <Dakota Kenney - Last Filed: 08/04/17 21:43>
[2017-08-04 17:05] LABS: INR 1.12 (0.82-1.09); PROTHROMBIN TIME (PATIENT) 12.6 SEC (9.98-11.88)
[2017-08-04 17:08] LABS: ACTIVATED PTT 35.4 SECONDS (26.9-34.4)
[2017-08-04 17:15] LABS: ALBUMIN 3.9 g/dl (3.4-5.0); ALK PHOS 98 U/L (45-117); ANION GAP 9 (8-16); BILIRUBIN,TOTAL 1.1 mg/dL (0.2-1.0); BLOOD UREA NITROGEN 10 mg/dL (7-18); CALCIUM 9.2 mg/dL (8.5-10.1); CHLORIDE 105 mmol/L (98-107); CO2 29 mmol/L (21-32); CREATININE 0.9 mg/dL (0.7-1.3); GLUCOSE,RANDOM 98 mg/dL (74-106); POTASSIUM 4.4 mmol/L (3.5-5.1); SGOT/AST 21 U/L (15-37); SGPT/ALT 26 U/L (12-78); SODIUM 143 mmol/L (136-145); TOT PROT 7.7 g/dl (6.4-8.2)
[2017-08-04] MEDS ORDERED: AZITHROMYCIN IVPB 500 MG in DEXTROSE 5%-WATER - 250 ML IVPB ONE (17:15)
[2017-08-04 17:46] LABS: N-TERMINAL BNP 279.44 pg/ml (5-125)
[2017-08-04] MEDS ORDERED: AZITHROMYCIN IVPB 250 ML IVPB ONE (17:57)
[2017-08-04 18:04] LABS: ARTERIAL BLOOD GAS BASE EXCESS -0.7 meq/l (-2-2); ARTERIAL BLOOD GAS PCO2 37.6 mmHg (35-45); ARTERIAL BLOOD GAS PO2 66.3 mmHg (80-100); ARTERIAL BLOOD GAS pH 7.41 (7.35-7.45)
[2017-08-04 18:07] LABS: ALLENS TEST POSITIVE
[2017-08-04 18:10] LABS: CARBOXYHEMOGLOBIN 0.9 gm% (0.5-2.0)
[2017-08-04] MEDS ORDERED: predniSONE 20 MG TABLET (UD) PO ONE (18:54)
[2017-08-04] MEDS ORDERED: predniSONE 20 MG TABLET (UD) ONE (18:59)
[2017-08-04] MEDS ORDERED: chlordiazePOXIDE HCL 25 MG CAPSULE PO ONE (19:38)
--- NOTE | 2017-08-04 19:47 | PN ---
Teaching Attending Note Name of Resident: Hitesh Rao ATTENDING PHYSICIAN STATEMENT I saw and evaluated the patient. I reviewed the resident's note and discussed the case with the resident. I agree with the resident's findings and plan as documented. SUBJECTIVE: 61 y/o M presented with cough with white sputum and SOB for 2 weeks, also associated with pleuritic chest pain. PMH significant for quitting smoking, alcoholism with cirrhosis, COPD, and asthma. Patient denies any fever, chills, palpitations or wheezing. OBJECTIVE: GEN: Alert, cooperative, Oriented times 3. tremulous HEENT: PERRLA, EOMI. MMM CVS: RRR, no Murmur, Gallop or rubs Lungs: slight upper lobe wheezing, otherwise CTA. Abd: soft, NT, ND, BS+ Ext: Nl ROM, palpable pulses, no edema Neuro: CN2-12 intact no focal deficits Psych: tremulous and withdrawing. CBCD WBC 7.2 K/mm3 (4.0-10.0) 08/04/17 16:10 RBC 5.17 M/mm3 (4.00-5.60) 08/04/17 16:10 Hgb 16.1 GM/dL (11.7-16.9) D 08/04/17 16:10 Hct 49.4 % (35.4-49) H D 08/04/17 16:10 MCV 95.5 fl (80-96) 08/04/17 16:10 MCHC 32.6 g/dl (32.0-35.9) 08/04/17 16:10 RDW 13.5 % (11.9-15.9) 08/04/17 16:10 Plt Count 210 K/MM3 (134-434) D 08/04/17 16:10 MPV 9.2 fl (7.5-11.1) 08/04/17 16:10 CMP Sodium 143 mmol/L (136-145) 08/04/17 16:10 Potassium 4.4 mmol/L (3.5-5.1) 08/04/17 16:10 Chloride 105 mmol/L (98-107) 08/04/17 16:10 Carbon Dioxide 29 mmol/L (21-32) 08/04/17 16:10 Anion Gap 9 (8-16) 08/04/17 16:10 BUN 10 mg/dL (7-18) D 08/04/17 16:10 Creatinine 0.9 mg/dL (0.7-1.3) 08/04/17 16:10 Creat Clearance w eGFR > 60 (>60) 08/04/17 16:10 Random Glucose 98 mg/dL (74-106) 08/04/17 16:10 Calcium 9.2 mg/dL (8.5-10.1) 08/04/17 16:10 Total Bilirubin 1.1 mg/dL (0.2-1.0) H 08/04/17 16:10 AST 21 U/L (15-37) D 08/04/17 16:10 ALT 26 U/L (12-78) 08/04/17 16:10 Alkaline Phosphatase 98 U/L (45-117) 08/04/17 16:10 Total Protein 7.7 g/dl (6.4-8.2) 08/04/17 16:10 Albumin 3.9 g/dl (3.4-5.0) 08/04/17 16:10 CARDIAC ENZYMES Creatine Kinase 124 IU/L (39-308) 08/04/17 16:10 Troponin I < 0.02 ng/ml (0.00-0.05) 08/04/17 16:10 ASSESSMENT AND PLAN: Acute hypoxic respiratory failure secondary to Copd/ Asthma exacerbation 2L NC Nebs q4h Symbicort Prednisone 40 mg po daily Singulair on discharge Alcohol w/d librium protocol, CIWA MV,Thiamine and folate Tylenol prn for headache Eosinophilia repeat CT chest for h/o pulmonary nodules 4mm and 2mm R lung alc cirrhosis- refer to GI on discharge. Dvt prophylaxis
[2017-08-04] MEDS ORDERED: chlordiazePOXIDE HCL 25 MG CAPSULE ONE (19:53)
--- NOTE | 2017-08-04 20:36 | PDOC ---
*Physical Exam - Vital Signs Last Vital Signs Temp Pulse Resp BP Pulse Ox 98 F 101 H 24 125/86 95 08/04/17 15:34 08/04/17 19:12 08/04/17 19:12 08/04/17 19:12 08/04/17 19:12 - Physical Exam Comments: 08/04/17 20:32 GENERAL: Awake, alert, and fully oriented, coughing HEAD: No signs of trauma, normocephalic, atraumatic EYES: PERRLA, EOMI, sclera anicteric, conjunctiva clear LUNGS: No distress, speaks full sentences, scattered wheezes, tachypneic HEART: Regular rate and rhythm, normal S1 and S2, no murmurs, rubs or gallops, peripheral pulses normal and equal bilaterally. EXTREMITIES: Normal inspection, Normal range of motion, no edema. No clubbing or cyanosis. NEUROLOGICAL: Cranial nerves II through XII grossly intact. Normal speech, no focal sensorimotor deficits SKIN: Warm, Dry, normal turgor, no rashes or lesions noted. ED Treatment Course - LABORATORY CBC & Chemistry Diagram: 08/04/17 16:10 08/04/17 16:10 - ADDITIONAL ORDERS Additional order review: Laboratory Results 08/04/17 08/04/17 08/04/17 17:55 17:45 16:10 PT with INR INR PTT (Actin FS) Puncture Site Right radial ABG pH 7.41 ABG pCO2 at Pt Temp 37.6 ABG pO2 at Pt Temp 66.3 L ABG HCO3 23.2 ABG O2 Sat (Measured) 93.0 ABG O2 Content 20.1 ABG Base Excess -0.7 David Test Positive Carboxyhemoglobin 0.9 Methemoglobin 0.7 Oxygen Flow Rate No Sodium Potassium Chloride Carbon Dioxide Anion Gap BUN Creatinine Creat Clearance w eGFR Random Glucose Lactic Acid Calcium Total Bilirubin AST ALT Alkaline Phosphatase Creatine Kinase 124 Troponin I < 0.02 B-Natriuretic Peptide 279.44 H Total Protein Albumin Urine Color Urine Appearance Urine pH Ur Specific [place] Urine Protein Urine Glucose (UA) Urine Ketones Urine Blood Urine Nitrite Urine Bilirubin Urine Urobilinogen Ur Leukocyte Esterase 08/04/17 08/04/17 08/04/17 16:10 16:10 16:10 PT with INR 12.60 H INR 1.12 PTT (Actin FS) 35.4 H Puncture Site ABG pH ABG pCO2 at Pt Temp ABG pO2 at Pt Temp ABG HCO3 ABG O2 Sat (Measured) ABG O2 Content ABG Base Excess David Test Carboxyhemoglobin Methemoglobin Oxygen Flow Rate Sodium 143 Potassium 4.4 Chloride 105 Carbon Dioxide 29 Anion Gap 9 BUN 10 D Creatinine 0.9 Creat Clearance w eGFR > 60 Random Glucose 98 Lactic Acid 1.2 Calcium 9.2 Total Bilirubin 1.1 H AST 21 D ALT 26 Alkaline Phosphatase 98 Creatine Kinase Troponin I B-Natriuretic Peptide Total Protein 7.7 Albumin 3.9 Urine Color Urine Appearance Urine pH Ur Specific [place] Urine Protein Urine Glucose (UA) Urine Ketones Urine Blood Urine Nitrite Urine Bilirubin Urine Urobilinogen Ur Leukocyte Esterase 08/04/17 16:00 PT with INR INR PTT (Actin FS) Puncture Site ABG pH ABG pCO2 at Pt Temp ABG pO2 at Pt Temp ABG HCO3 ABG O2 Sat (Measured) ABG O2 Content ABG Base Excess David Test Carboxyhemoglobin Methemoglobin Oxygen Flow Rate Sodium Potassium Chloride Carbon Dioxide Anion Gap BUN Creatinine Creat Clearance w eGFR Random Glucose Lactic Acid Calcium Total Bilirubin AST ALT Alkaline Phosphatase Creatine Kinase Troponin I B-Natriuretic Peptide Total Protein Albumin Urine Color Yellow Urine Appearance Clear Urine pH 5.0 Ur Specific [place] 1.014 Urine Protein Negative Urine Glucose (UA) Negative Urine Ketones Negative Urine Blood Negative Urine Nitrite Negative Urine Bilirubin Negative Urine Urobilinogen Negative Ur Leukocyte Esterase Negative 08/04/17 16:10 RBC 5.17 MCV 95.5 MCHC 32.6 RDW 13.5 MPV 9.2 Neutrophils % 52.9 Lymphocytes % 25.2 Monocytes % 7.7 Eosinophils % 12.8 H D Basophils % 1.4 - Medications Given in the ED: ED Medications Discontinued Medications Generic Name Dose Route Start Last Admin Trade Name Freq PRN Reason Stop Dose Admin Albuterol/Ipratropium 1 amp 08/04/17 16:15 08/04/17 17:55 Duoneb - NEB 08/04/17 17:01 1 amp Q15M NESSA Administration Albuterol/Ipratropium 1 amp 08/04/17 19:07 08/04/17 19:11 Duoneb - NEB 08/04/17 19:08 1 amp ONCE ONE Administration Chlordiazepoxide HCl 25 mg 08/04/17 19:38 08/04/17 19:59 Librium - PO 08/04/17 19:39 25 mg ONCE ONE Administration Azithromycin 500 mg/ Dextrose 250 mls @ 250 mls/hr 08/04/17 17:15 08/04/17 17 :55 IVPB 08/04/17 18:14 250 mls/hr ONCE ONE Administration Prednisone 60 mg 08/04/17 18:54 08/04/17 19:05 Deltasone - PO 08/04/17 18:55 60 mg ONCE ONE Administration Medical Decision Making - Medical Decision Making 08/04/17 20:[address] Harkins. Patient is pending admission with COPD exacerbation. On my re-examination, patient found to tachypneic and wheezing, which resolved with treatment of duoneb. Patient admitted to Dr Beltran via Dr Rao. *DC/Admit/Observation/Transfer Diagnosis at time of Disposition: COPD exacerbation - Discharge Dispostion Condition at time of disposition: Stable Admit: Yes - Referrals - Patient Instructions - Post Discharge Activity
[2017-08-04] MEDS ORDERED: FOLIC ACID INJECTION - 1 MG, THIAMINE HCL 100 MG, MULTIVIT INJECTION ADULT 10 ML in SOD... IVPB ONE (21:00)
--- NOTE | 2017-08-04 21:26 | HP ---
CHIEF COMPLAINT: Shortness of breath PCP: Dr. Stein HISTORY OF PRESENT ILLNESS: 61yo M with history of asthma/COPD, liver cirrhosis, and alcohol abuse who presents to the ED with 1.5 weeks of shortness of breath and increase in sputum production. Pt reports he's been short of breath since around [place] and it has not gotten any better. He also noticed he has had a cough productive of white sputum since then. Pt also confirms some slight chest discomfort located substernally that is only apparent with coughing and deep inspiration. Pt reports being a long-time smoker, however he quit five year ago. He still has some second-hand smoke contact at his home though. Pt also reports some sick contacts with URI at home within the past 2 weeks. Pt has been previously hospitalized for asthma "a long time ago," and has never been intubated. Pt denies any recent antibiotic use or steroid use. Pt denies any travel, any new rugs/shampoos/clothing/allergies, fever/chills, rhinorrhea, ear pain, throat pain, sinus pressure, n/v/d/c, diaphoresis, palpitations, abdominal pain, dysuria/polyuria, and unexpectated weight changes. Of note, when pt arrived in ED is O2 saturation was 88% on RA. ER course was notable for: (1) CXR - No acute pathology (2) ABG - 7.4/37.6/66.3 (3) Negative UA (4) Prednisone x1 dose, Zithromax x1 dose, Duoneb (5) Return to 95% SpO2 on 2LNC Recent Travel: Denies PAST MEDICAL HISTORY: Asthma/COPD Liver cirrhosis Alcohol abuse Previous lung nodule on CT scan (April 2017) Chronic back pain PAST SURGICAL HISTORY: Back surgery after herniated/ruptured vertebral disc Social History: Smoking: Quit 5 years ago; smoked for "Many many years"; still exposed to second -hand smoke at home Alcohol: Everyday drinker for many years; last drink 2 days ago ("2-3 beers") Drugs: None Family History: Mom - Breast Ca; Father - Colon Ca Allergies No Known Allergies Allergy (Verified 08/04/17 15:36) HOME MEDICATIONS: Home Medications Medication Instructions Recorded Unobtainable [Unobtainable] 08/04/17 REVIEW OF SYSTEMS CONSTITUTIONAL: Absent: fever, chills, diaphoresis, generalized weakness, malaise, loss of appetite, weight change HEENT: Absent: rhinorrhea, nasal congestion, throat pain, throat swelling, difficulty swallowing, mouth swelling, ear pain, eye pain, visual changes CARDIOVASCULAR: Present: Chest discomfort Absent: syncope, palpitations, lightheadedness, peripheral edema RESPIRATORY: Present: Cough, Shortness of breath, dyspnea, wheezing Absent: orthopnea, stridor, hemoptysis GASTROINTESTINAL: Absent: abdominal pain, nausea, vomiting, diarrhea, constipation, melena, hematochezia GENITOURINARY: Absent: dysuria, frequency, urgency, hesitancy, hematuria, flank pain, genital pain MUSCULOSKELETAL: Absent: myalgia, arthralgia, back pain, neck pain SKIN: Absent: rash, itching, pallor ENDOCRINE: Absent: unexplained weight gain, unexplained weight loss NEUROLOGIC: Absent: headache, focal weakness or paresthesias, dizziness, unsteady gait, seizure, mental status changes PHYSICAL EXAMINATION Vital Signs - 24 hr 08/04/17 08/04/17 08/04/17 15:34 16:00 16:59 Temperature 98 F Pulse Rate 107 H Pulse Rate [ 90 Apical] Respiratory 24 20 Rate Blood Pressure 135/90 Blood Pressure 102/47 [Left Arm] O2 Sat by Pulse 88 L 100 94 L Oximetry (%) 08/04/17 19:12 Temperature Pulse Rate Pulse Rate [ 101 H Apical] Respiratory 24 Rate Blood Pressure Blood Pressure 125/86 [Left Arm] O2 Sat by Pulse 95 Oximetry (%) GENERAL: Mild distress, Awake, alert, and fully oriented, tremulous HEENT: NC/AT, BRIANA, EOMI with horizontal nystamus noted, slight scleral icterus , No JVD, no lymphadenopathy, Moist mucosa with no swelling of mouth structures , poor dentition, LUNGS: Diminished breath sounds at bases; prolonged expiratory phase, end- expiratory wheezing noted despite recent nebulized tx. No rhonchi; no crackles. No accessory muscle use. HEART: Distant heart sounds, Tachycardic, normal S1 and S2 without murmur. ABDOMEN: Soft, nontender, slightly distended, normoactive bowel sounds, no guarding, No hepatomegaly to percussion or palpation noted. No shifting dullness appreciated. MUSCULOSKELETAL: Normal range of motion at all joints. No bony deformities or tenderness. No CVA tenderness. EXTREMITIES: 2+ DP pulses, warm, well-perfused. No edema, No calf tenderness NEUROLOGICAL: Cranial nerves II-XII intact. Slight studdering and trouble locating words. Gait not observed PSYCHIATRIC: Cooperative. Good eye contact. Appropriate mood and affect. SKIN: Warm, dry, no rashes or lesions noted, normal capillary refill. Laboratory Results - last 24 hr 08/04/17 08/04/17 08/04/17 16:00 16:10 16:10 WBC 7.2 RBC 5.17 Hgb 16.1 D Hct 49.4 H D MCV 95.5 MCH 31.1 MCHC 32.6 RDW 13.5 Plt Count 210 D MPV 9.2 Neutrophils % 52.9 Lymphocytes % 25.2 Monocytes % 7.7 Eosinophils % 12.8 H D Basophils % 1.4 PT with INR 12.60 H INR 1.12 PTT (Actin FS) 35.4 H Puncture Site ABG pH ABG pCO2 at Pt Temp ABG pO2 at Pt Temp ABG HCO3 ABG O2 Sat (Measured) ABG O2 Content ABG Base Excess David Test Carboxyhemoglobin Methemoglobin Oxygen Flow Rate Sodium Potassium Chloride Carbon Dioxide Anion Gap BUN Creatinine Creat Clearance w eGFR Random Glucose Lactic Acid Calcium Total Bilirubin AST ALT Alkaline Phosphatase Creatine Kinase Troponin I B-Natriuretic Peptide Total Protein Albumin Urine Color Yellow Urine Appearance Clear Urine pH 5.0 Ur Specific [place] 1.014 Urine Protein Negative Urine Glucose (UA) Negative Urine Ketones Negative Urine Blood Negative Urine Nitrite Negative Urine Bilirubin Negative Urine Urobilinogen Negative Ur Leukocyte Esterase Negative 08/04/17 08/04/17 08/04/17 16:10 16:10 16:10 WBC RBC Hgb Hct MCV MCH MCHC RDW Plt Count MPV Neutrophils % Lymphocytes % Monocytes % Eosinophils % Basophils % PT with INR INR PTT (Actin FS) Puncture Site ABG pH ABG pCO2 at Pt Temp ABG pO2 at Pt Temp ABG HCO3 ABG O2 Sat (Measured) ABG O2 Content ABG Base Excess David Test Carboxyhemoglobin Methemoglobin Oxygen Flow Rate Sodium 143 Potassium 4.4 Chloride 105 Carbon Dioxide 29 Anion Gap 9 BUN 10 D Creatinine 0.9 Creat Clearance w eGFR > 60 Random Glucose 98 Lactic Acid 1.2 Calcium 9.2 Total Bilirubin 1.1 H AST 21 D ALT 26 Alkaline Phosphatase 98 Creatine Kinase 124 Troponin I < 0.02 B-Natriuretic Peptide 279.44 H Total Protein 7.7 Albumin 3.9 Urine Color Urine Appearance Urine pH Ur Specific [place] Urine Protein Urine Glucose (UA) Urine Ketones Urine Blood Urine Nitrite Urine Bilirubin Urine Urobilinogen Ur Leukocyte Esterase 08/04/17 08/04/17 17:45 17:55 WBC RBC Hgb Hct MCV MCH MCHC RDW Plt Count MPV Neutrophils % Lymphocytes % Monocytes % Eosinophils % Basophils % PT with INR INR PTT (Actin FS) Puncture Site Right radial ABG pH 7.41 ABG pCO2 at Pt Temp 37.6 ABG pO2 at Pt Temp 66.3 L ABG HCO3 23.2 ABG O2 Sat (Measured) 93.0 ABG O2 Content 20.1 ABG Base Excess -0.7 David Test Positive Carboxyhemoglobin 0.9 Methemoglobin 0.7 Oxygen Flow Rate No Sodium Potassium Chloride Carbon Dioxide Anion Gap BUN Creatinine Creat Clearance w eGFR Random Glucose Lactic Acid Calcium Total Bilirubin AST ALT Alkaline Phosphatase Creatine Kinase Troponin I B-Natriuretic Peptide Total Protein Albumin Urine Color Urine Appearance Urine pH Ur Specific [place] Urine Protein Urine Glucose (UA) Urine Ketones Urine Blood Urine Nitrite Urine Bilirubin Urine Urobilinogen Ur Leukocyte Esterase EKG - NSR without any ST abnormalities noted; QTc 447 ASSESSMENT/PLAN: 61yo M with h/o COPD, asthma, alcoholic cirrhosis, and alcohol abuse who presents with SOB x1.5 weeks. 1) Acute hypoxic respiratory distress --2/2 to COPD exacerbation --Symbicort 160/4.5 --Duonebs TID maria de jesus --Albuterol PRN q4h --Continue NC; titrate to SpO2 >90% --Flu Swab ordered --Prednisone 40 PO qDaily --Dose of Zithromax 500mg in ED noted 2) Alcohol abuse --Last drink per pt 2 days ago; however physical exam suspicious for intoxication --Alcohol level ordered -CIWA 7 with only tremulousness at rest --withdrawal vs. albuterol/steroid treatments --Will monitor and librium protocol if alcohol level is negative --Banana bag --Thiamine and folic acid tomorrow AM 3) Eosinophilia --2/2 to reactive airway and asthma vs. neoplasm due to prior CT with pulm nodules --Will repeat CT Chest Noncontrast for evaluation of nodules (seen april CT chest) --No allergies 4) ? Alcoholic cirrhosis --LFTs WNL with exception of 1.1 T. Bili --Will eventually need follow-up FEN: Fluids: None currently Electrolyte abnormalities: None currently Nutrition: Regular diet PPX: DVT - Mod risk; Heparin 5000U SQ TID Misc: Will need to reconcile medication list with [facility] tomorrow; pharmacy currently closed unfortunately; per pt he only takes a multivitamin an emergency inhaler and NSAIDs otc Code Status: Full Code Dispo: Admit to M/S Case discussed with Dr. Ruby Rao, DO - Internal Medicine PGY-1 Visit type - Emergency Visit Emergency Visit: Yes ED Registration Date: 08/04/17 Care time: The patient presented to the Emergency Department on the above date and was hospitalized for further evaluation of their emergent condition. - New Patient This patient is new to me today: Yes Date on this admission: 08/04/17 - Critical Care Critical Care patient: No
[2017-08-04] MEDS: ALBUTEROL SO4 0.083% IH SOL 2.5 MG/3 ML VIAL.NEB. NEB PRN (21:36)
[2017-08-04] MEDS: HEPARIN NA (PORCINE) 5,000 UNITS/ML 1ML VIAL SQ SCH (22:56)
[2017-08-04] MEDS ORDERED: HEPARIN NA (PORCINE) 5,000 UNITS/ML 1ML VIAL ONE (22:59)
[2017-08-05 00:46] VITALS: BMI 29.2
[2017-08-05] MEDS ORDERED: ACETAMINOPHEN 325 MG TABLET (FP) PO PRN ×2 (04:17→16:31)
[2017-08-05] MEDS: ALBUTEROL SO4 0.083% IH SOL 2.5 MG/3 ML VIAL.NEB. NEB PRN (04:32)
[2017-08-05] MEDS: HEPARIN NA (PORCINE) 5,000 UNITS/ML 1ML VIAL SQ SCH ×3 (05:49→22:02)
[2017-08-05] MEDS: chlordiazePOXIDE HCL 25 MG CAPSULE PO SCH ×2 (05:49→11:24)
[2017-08-05] MEDS: ALBUTEROL SO4 2.5/IPRATROPIUM 0.5 INH SOL 3 ML VIAL.NEB. NEB SCH ×3 (06:40→22:37)
[2017-08-05 06:58] LABS: BASO % 0.2 % (0-2.0); HEMATOCRIT 41.4 % (35.4-49); HEMOGLOBIN 14.3 GM/dL (11.7-16.9); LYMPH % 8.4 % (8-40); MCH 32.2 pg (25.7-33.7); MCHC 34.4 g/dl (32.0-35.9); MEAN CELL VOLUME 93.5 fl (80-96); MEAN PLT VOLUME 9.5 fl (7.5-11.1); MONO % 1.8 % (3.8-10.2); NEUT % 89.6 % (42.8-82.8); PLATELET COUNT 209 K/MM3 (134-434); RBC 4.43 M/mm3 (4.00-5.60); RDW 13.8 % (11.9-15.9); WHITE BLOOD COUNT 5.1 K/mm3 (4.0-10.0)
[2017-08-05] MEDS: BUDESONIDE/FORMETEROL FUMARATE 160/4.5 mcg INHALER IH SCH ×3 (07:07→22:04)
[2017-08-05 07:25] LABS: ALBUMIN 3.4 g/dl (3.4-5.0); ALK PHOS 80 U/L (45-117); ANION GAP 10 (8-16); BLOOD UREA NITROGEN 12 mg/dL (7-18); CALCIUM 8.4 mg/dL (8.5-10.1); CHLORIDE 107 mmol/L (98-107); CO2 24 mmol/L (21-32); CREATININE 0.9 mg/dL (0.7-1.3); GLUCOSE,RANDOM 154 mg/dL (74-106); MAGNESIUM 1.7 mg/dL (1.8-2.4); PHOSPHOROUS 1.7 mg/dL (2.5-4.9); SGOT/AST 20 U/L (15-37); SGPT/ALT 24 U/L (12-78); SODIUM 141 mmol/L (136-145); TOT PROT 6.8 g/dl (6.4-8.2)
[2017-08-05] MEDS ORDERED: MAGNESIUM SULF 50% (8.12 MEQ/2 ML-1 GM VIAL) IVPB ONE ×3 (08:08)
[2017-08-05] MEDS ORDERED: MAGNESIUM 1GM/D5W - 1 GM/100 ML IVPB IVPB ONE (09:00)
[2017-08-05] MEDS ORDERED: SODIUM PHOSPHATE - 30 MM in SODIUM CHLORIDE 500 ML IVPB ONE (09:00)
[2017-08-05] MEDS: predniSONE 20 MG TABLET (UD) PO SCH (09:27)
[2017-08-05] MEDS: THIAMINE HCL 200 MG/2 ML VIAL IVPB SCH (09:28)
[2017-08-05] MEDS: FOLIC ACID 1 MG TABLET (FP) PO SCH (09:28)
[2017-08-05] MEDS ORDERED: PT OWN MED DRAWER 7, Y5N ONE (09:43)
--- NOTE | 2017-08-05 12:05 | PN ---
Teaching Attending Note Name of Resident: . ATTENDING PHYSICIAN STATEMENT SUBJECTIVE: Patient seen and examined, comfortable, drowsy but appropriate. Some slurring of speech which per patient is his baseline. Reports last drink around new years , had 1.5 cans of beer 2-3 days ago. breathing improved. No chest pain, nausea, vomiting, abdominal pain or diarrhea noted. Tolerated diet well this AM. OBJECTIVE: Vital Signs Period Temp Pulse Resp BP Sys/[place] Pulse Ox Last 24 Hr 98 F-98.8 F 82-107 20-26 97-135/47-90 88-100 Intake & Output 08/02/17 08/03/17 08/04/17 08/05/17 23:59 23:59 23:59 23:59 Intake Total 1250 Output Total 200 Balance -200 1250 Weight 216 lb General: drowsy but appropriate and conversant in bed Chest: good air entry bilaterally no rales or wheezing appreciated Abdomen: soft, obese, NT, positive bowel soundse extremities: no tremors or asterexis, no edema Home Medication List Medication Instructions Recorded Confirmed Type Unobtainable [Unobtainable] 08/04/17 08/04/17 History Active Medications Generic Name Dose Route Start Last Admin Trade Name Freq PRN Reason Stop Dose Admin Acetaminophen 650 mg 08/05/17 04:17 08/05/17 09:44 Tylenol - PO 650 mg Q4H PRN Administration FEVER OR PAIN Albuterol Sulfate 1 amp 08/04/17 20:05 08/05/17 04:32 Ventolin 0.083% Nebulizer Soln - NEB 1 amp Q4H PRN Administration SHORT OF BREATH/WHEEZING Albuterol/Ipratropium 1 amp 08/04/17 22:00 08/05/17 06:40 Duoneb - NEB 1 amp TIDR NESSA Administration Budesonide/Formoterol Fumarate 1 puff 08/04/17 22:00 08/05/17 09:40 Symbicort 160/4.5mcg - IH 1 puff BID NESSA Administration Chlordiazepoxide HCl 25 mg 08/05/17 03:23 Librium - PO 08/08/17 03:22 Q4H PRN WITHDRAWAL(CONT SUBST) Folic Acid 1 mg 08/05/17 10:00 08/05/17 09:28 Folic Acid - PO 1 mg DAILY NESSA Administration Heparin Sodium (Porcine) 5,000 unit 08/04/17 22:00 08/05/17 05:49 Heparin - SQ 5,000 unit TID NESSA Administration Sodium Phosphate 30 mm/ Sodium 510 mls @ 63.75 mls/hr 08/05/17 09:00 10:34 Chloride IVPB 08/05/17 16:59 63.75 mls/hr ONCE ONE Administration 30 MM/8 HR Sodium Chloride 1,000 mls @ 100 mls/hr 08/05/17 12:00 Normal Saline - IV ASDIR NESSA Prednisone 40 mg 08/05/17 10:00 08/05/17 09:27 Deltasone - PO 40 mg DAILY NESSA Administration Thiamine HCl 200 mg 08/05/17 10:00 08/05/17 09:28 Vitamin B1 Injection - IVPB 200 mg DAILY NESSA Administration Laboratory Results - last 24 hr 08/04/17 08/04/17 08/04/17 16:00 16:10 16:10 WBC 7.2 RBC 5.17 Hgb 16.1 D Hct 49.4 H D MCV 95.5 MCH 31.1 MCHC 32.6 RDW 13.5 Plt Count 210 D MPV 9.2 Neutrophils % 52.9 Lymphocytes % 25.2 Monocytes % 7.7 Eosinophils % 12.8 H D Basophils % 1.4 PT with INR 12.60 H INR 1.12 PTT (Actin FS) 35.4 H Puncture Site ABG pH ABG pCO2 at Pt Temp ABG pO2 at Pt Temp ABG HCO3 ABG O2 Sat (Measured) ABG O2 Content ABG Base Excess David Test Carboxyhemoglobin Methemoglobin Oxygen Flow Rate Sodium Potassium Chloride Carbon Dioxide Anion Gap BUN Creatinine Creat Clearance w eGFR Random Glucose Lactic Acid Calcium Phosphorus Magnesium Total Bilirubin AST ALT Alkaline Phosphatase Creatine Kinase Troponin I B-Natriuretic Peptide Total Protein Albumin Urine Color Yellow Urine Appearance Clear Urine pH 5.0 Ur Specific [place] 1.014 Urine Protein Negative Urine Glucose (UA) Negative Urine Ketones Negative Urine Blood Negative Urine Nitrite Negative Urine Bilirubin Negative Urine Urobilinogen Negative Ur Leukocyte Esterase Negative Alcohol, Quantitative 08/04/17 08/04/17 08/04/17 16:10 16:10 16:10 WBC RBC Hgb Hct MCV MCH MCHC RDW Plt Count MPV Neutrophils % Lymphocytes % Monocytes % Eosinophils % Basophils % PT with INR INR PTT (Actin FS) Puncture Site ABG pH ABG pCO2 at Pt Temp ABG pO2 at Pt Temp ABG HCO3 ABG O2 Sat (Measured) ABG O2 Content ABG Base Excess David Test Carboxyhemoglobin Methemoglobin Oxygen Flow Rate Sodium 143 Potassium 4.4 Chloride 105 Carbon Dioxide 29 Anion Gap 9 BUN 10 D Creatinine 0.9 Creat Clearance w eGFR > 60 Random Glucose 98 Lactic Acid 1.2 Calcium 9.2 Phosphorus Magnesium Total Bilirubin 1.1 H AST 21 D ALT 26 Alkaline Phosphatase 98 Creatine Kinase 124 Troponin I < 0.02 B-Natriuretic Peptide 279.44 H Total Protein 7.7 Albumin 3.9 Urine Color Urine Appearance Urine pH Ur Specific [place] Urine Protein Urine Glucose (UA) Urine Ketones Urine Blood Urine Nitrite Urine Bilirubin Urine Urobilinogen Ur Leukocyte Esterase Alcohol, Quantitative 08/04/17 08/04/17 08/04/17 17:45 17:55 22:00 WBC RBC Hgb Hct MCV MCH MCHC RDW Plt Count MPV Neutrophils % Lymphocytes % Monocytes % Eosinophils % Basophils % PT with INR INR PTT (Actin FS) Puncture Site Right radial ABG pH 7.41 ABG pCO2 at Pt Temp 37.6 ABG pO2 at Pt Temp 66.3 L ABG HCO3 23.2 ABG O2 Sat (Measured) 93.0 ABG O2 Content 20.1 ABG Base Excess -0.7 David Test Positive Carboxyhemoglobin 0.9 Methemoglobin 0.7 Oxygen Flow Rate No Sodium Potassium Chloride Carbon Dioxide Anion Gap BUN Creatinine Creat Clearance w eGFR Random Glucose Lactic Acid Calcium Phosphorus Magnesium Total Bilirubin AST ALT Alkaline Phosphatase Creatine Kinase Troponin I B-Natriuretic Peptide Total Protein Albumin Urine Color Urine Appearance Urine pH Ur Specific [place] Urine Protein Urine Glucose (UA) Urine Ketones Urine Blood Urine Nitrite Urine Bilirubin Urine Urobilinogen Ur Leukocyte Esterase Alcohol, Quantitative < 5.0 08/05/17 08/05/17 06:30 06:30 WBC 5.1 RBC 4.43 Hgb 14.3 D Hct 41.4 D MCV 93.5 MCH 32.2 MCHC 34.4 RDW 13.8 Plt Count 209 MPV 9.5 Neutrophils % 89.6 H D Lymphocytes % 8.4 D Monocytes % 1.8 L Eosinophils % 0.0 D Basophils % 0.2 PT with INR INR PTT (Actin FS) Puncture Site ABG pH ABG pCO2 at Pt Temp ABG pO2 at Pt Temp ABG HCO3 ABG O2 Sat (Measured) ABG O2 Content ABG Base Excess David Test Carboxyhemoglobin Methemoglobin Oxygen Flow Rate Sodium 141 Potassium 4.0 Chloride 107 Carbon Dioxide 24 Anion Gap 10 BUN 12 Creatinine 0.9 Creat Clearance w eGFR > 60 Random Glucose 154 H D Lactic Acid Calcium 8.4 L Phosphorus 1.7 L D Magnesium 1.7 L Total Bilirubin 1.0 AST 20 ALT 24 Alkaline Phosphatase 80 Creatine Kinase Troponin I B-Natriuretic Peptide Total Protein 6.8 Albumin 3.4 Urine Color Urine Appearance Urine pH Ur Specific [place] Urine Protein Urine Glucose (UA) Urine Ketones Urine Blood Urine Nitrite Urine Bilirubin Urine Urobilinogen Ur Leukocyte Esterase Alcohol, Quantitative Microbiology 08/05/17 08:30 Nasopharyngeal Swab Influenza Types A,B Antigen (JE) - Final 08/05/17 08:30 Nasopharyngeal Swab - Final CT chest done, results pending ASSESSMENT AND PLAN: 61 yom with PMHx of COPD (?Second hand smoking), ETOH abuse, admitted with URI like illness, COPD excaerbation. -URI like illness -Acute COPD exacerbation -Lung nodule -ETOH abuse -?Fatty liver (no evidence of cirrhosis on prior imaging). -h/o Migraine Plan: Check influenza swab. Doing well, continue prednisone 40 mg daily. standing nebs. Check pre and post ambulatory oxygen saturation. s Follow up CT chest. Patient drowsy, but appropriate. No concerns for active withdrawal currently. Will keep prn librium but d/c standing taper for now. LFTs, INR WNL. Check abdominal ultrasound as unclear h/o ?cirrhosis in chart Add fioricet prn for migraine GI/DVTPPX Dispo planning in 24 hours if no new concerns and continues to improve. PLan discussed with patient in detail, all questions answered.
[2017-08-05] MEDS: chlordiazePOXIDE HCL 25 MG CAPSULE PO PRN ×2 (16:29→23:57)
[2017-08-05] MEDS ORDERED: POLYETHYLENE GLYCOL 3350 119 GM BTL PO PRN (16:30)
[2017-08-05] MEDS: ACETAMINOPHEN/CAFFEINE/BUTALBITAL 1 TAB PO PRN (16:54)
[2017-08-05] MEDS: SENNOSIDES 8.6MG TABLET (FP) PO SCH (22:01)
[2017-08-05] MEDS: SODIUM CHLORIDE 1,000 ML IV SCH (22:01)
[2017-08-05] MEDS: DOCUSATE SODIUM 100 MG CAPSULE (FP) PO SCH (22:02)
[2017-08-05] MEDS ORDERED: PANTOPRAZOLE 40 MG TABLET (FP) PO ONE (23:45)
[2017-08-06] MEDS ORDERED: guaiFENesin 200 MG/10 ML 10 ML UNIT-DOSE CUPS PO PRN (00:07)
[2017-08-06] MEDS ORDERED: chlordiazePOXIDE HCL 25 MG CAPSULE PO SCH (05:00)
[2017-08-06] MEDS: ALBUTEROL SO4 2.5/IPRATROPIUM 0.5 INH SOL 3 ML VIAL.NEB. NEB SCH ×3 (06:29→22:10)
[2017-08-06] MEDS: HEPARIN NA (PORCINE) 5,000 UNITS/ML 1ML VIAL SQ SCH ×3 (06:40→21:23)
[2017-08-06 08:39] LABS: BASO % 0.2 % (0-2.0); EOS % 0.8 % (0-4.5); HEMATOCRIT 39.4 % (35.4-49); HEMOGLOBIN 13.1 GM/dL (11.7-16.9); LYMPH % 18.9 % (8-40); MCH 31.3 pg (25.7-33.7); MCHC 33.1 g/dl (32.0-35.9); MEAN CELL VOLUME 94.4 fl (80-96); MEAN PLT VOLUME 9.2 fl (7.5-11.1); MONO % 6.5 % (3.8-10.2); NEUT % 73.6 % (42.8-82.8); PLATELET COUNT 163 K/MM3 (134-434); RBC 4.18 M/mm3 (4.00-5.60); RDW 13.7 % (11.9-15.9); WHITE BLOOD COUNT 9.6 K/mm3 (4.0-10.0)
[2017-08-06 08:43] LABS: INR 1.17 (0.82-1.09); PROTHROMBIN TIME (PATIENT) 13.2 SEC (9.98-11.88)
[2017-08-06 08:52] LABS: ALBUMIN 2.8 g/dl (3.4-5.0); ANION GAP 7 (8-16); BLOOD UREA NITROGEN 10 mg/dL (7-18); CALCIUM 7.7 mg/dL (8.5-10.1); CHLORIDE 113 mmol/L (98-107); CO2 24 mmol/L (21-32); CREATININE 0.7 mg/dL (0.7-1.3); GLUCOSE,RANDOM 97 mg/dL (74-106); POTASSIUM 3.8 mmol/L (3.5-5.1); SODIUM 144 mmol/L (136-145)
[2017-08-06 09:01] LABS: ALK PHOS 66 U/L (45-117); BILIRUBIN,TOTAL 0.8 mg/dL (0.2-1.0); SGOT/AST 14 U/L (15-37); SGPT/ALT 24 U/L (12-78)
[2017-08-06] MEDS ORDERED: PT OWN MED DRAWER 7, Y5N ONE ×2 (09:43→21:20)
[2017-08-06] MEDS: predniSONE 20 MG TABLET (UD) PO SCH (10:33)
[2017-08-06] MEDS: FOLIC ACID 1 MG TABLET (FP) PO SCH (10:33)
[2017-08-06] MEDS: DOCUSATE SODIUM 100 MG CAPSULE (FP) PO SCH ×2 (10:33→21:23)
[2017-08-06] MEDS: BUDESONIDE/FORMETEROL FUMARATE 160/4.5 mcg INHALER IH SCH ×2 (10:34→21:23)
[2017-08-06] MEDS: THIAMINE HCL 200 MG/2 ML VIAL IVPB SCH (10:34)
[2017-08-06] MEDS: chlordiazePOXIDE HCL 25 MG CAPSULE PO SCH ×2 (10:37→17:20)
[2017-08-06] MEDS: SODIUM CHLORIDE 1,000 ML IV SCH (11:31)
--- NOTE | 2017-08-06 14:20 | PN ---
Teaching Attending Note Name of Resident: Hitesh Rao ATTENDING PHYSICIAN STATEMENT Time of evaluation: 11:15 am I saw and evaluated the patient. I reviewed the resident's note and discussed the case with the resident. I agree with the resident's findings and plan as documented. SUBJECTIVE: Patient seen and examined. breathing improved, No nausea, vomiting or abdominal pain or diarrhea.Mildly tremulous. OBJECTIVE: Vital Signs Period Temp Pulse Resp BP Sys/Avila Pulse Ox Last 24 Hr 97.9 F-98.5 F 53-74 18-20 96-126/58-78 94-98 Intake & Output 08/03/17 08/04/17 08/05/17 08/06/17 23:59 23:59 23:59 23:59 Intake Total 3200 Output Total 200 450 600 Balance -200 2750 -600 Weight 216 lb General: sitting in bed in no acute distress CVS;S1S2 regular Chest; good air entry bilaterally, no rales or wheezing abdomen: soft, NT, ND, positive bowel sounds extremities: mild tremors, no asterexis Home Medication List Medication Instructions Recorded Confirmed Type Unobtainable [Unobtainable] 08/04/17 08/04/17 History Active Medications Generic Name Dose Route Start Last Admin Trade Name Freq PRN Reason Stop Dose Admin Acetaminophen 650 mg 08/05/17 16:31 Tylenol - PO Q6H PRN FEVER OR PAIN Acetaminophen/Butalbital/Caffeine 1 tablet 08/05/17 16:29 08/05/17 16:54 Fioricet - PO 1 tablet Q6H PRN Administration HEADACHE Albuterol Sulfate 1 amp 08/04/17 20:05 08/05/17 04:32 Ventolin 0.083% Nebulizer Soln - NEB 1 amp Q4H PRN Administration SHORT OF BREATH/WHEEZING Albuterol/Ipratropium 1 amp 08/04/17 22:00 08/06/17 06:29 Duoneb - NEB 1 amp TIDR NESSA Administration Budesonide/Formoterol Fumarate 1 puff 08/04/17 22:00 08/06/17 10:34 Symbicort 160/4.5mcg - IH 1 puff BID NESSA Administration Chlordiazepoxide HCl 25 mg 08/05/17 03:23 08/05/17 23:57 Librium - PO 08/08/17 03:22 25 mg Q4H PRN Administration WITHDRAWAL(CONT SUBST) Chlordiazepoxide HCl 25 mg 08/06/17 11:00 08/06/17 10:37 Librium - PO 08/07/17 05:01 25 mg [id number] NESSA Administration Chlordiazepoxide HCl 15 mg 08/07/17 11:00 Librium - PO 08/08/17 05:01 [id number] NESSA Docusate Sodium 100 mg 08/05/17 22:00 08/06/17 10:33 Colace - PO 100 mg BID NESSA Administration Folic Acid 1 mg 08/05/17 10:00 08/06/17 10:33 Folic Acid - PO 1 mg DAILY NESSA Administration Guaifenesin 10 ml 08/06/17 00:07 08/06/17 00:16 Robitussin - PO 10 ml Q6H PRN Administration COUGH Heparin Sodium (Porcine) 5,000 unit 08/04/17 22:00 08/06/17 14:07 Heparin - SQ 5,000 unit TID NESSA Administration Sodium Chloride 1,000 mls @ 100 mls/hr 08/05/17 12:00 08/06/17 11:31 Normal Saline - IV 100 mls/hr ASDIR NESSA Administration Polyethylene Glycol 17 gm 08/05/17 16:30 08/05/17 16:55 Miralax (For Daily Use) - PO 17 gm DAILY PRN Administration CONSTIPATION Prednisone 40 mg 08/05/17 10:00 08/06/17 10:33 Deltasone - PO 40 mg DAILY NESSA Administration Senna 2 tab 08/05/17 22:00 08/05/17 22:01 Senna - PO 2 tab HS NESSA Administration Thiamine HCl 200 mg 08/05/17 10:00 08/06/17 10:34 Vitamin B1 Injection - IVPB 200 mg DAILY NESSA Administration Laboratory Results - last 24 hr 08/06/17 08/06/17 08/06/17 07:00 07:00 07:00 WBC 9.6 D RBC 4.18 Hgb 13.1 Hct 39.4 MCV 94.4 MCH 31.3 MCHC 33.1 RDW 13.7 Plt Count 163 D MPV 9.2 Neutrophils % 73.6 Lymphocytes % 18.9 D Monocytes % 6.5 D Eosinophils % 0.8 D Basophils % 0.2 PT with INR 13.20 H INR 1.17 H Sodium 144 Potassium 3.8 Chloride 113 H Carbon Dioxide 24 Anion Gap 7 L BUN 10 Creatinine 0.7 D Creat Clearance w eGFR > 60 Random Glucose 97 D Calcium 7.7 L Total Bilirubin 0.8 AST 14 L D ALT 24 Alkaline Phosphatase 66 Total Protein 6.0 L Albumin 2.8 L Microbiology 08/04/17 16:00 Urine - Urine Clean Catch Urine Culture - Preliminary Beta Hemolytic Strep 08/05/17 08:30 Nasopharyngeal Swab Respiratory Virus (PCR) - Preliminary 08/04/17 16:10 Blood - Peripheral Venous Blood Culture - Preliminary NO GROWTH OBTAINED AFTER 24 HOURS, INCUBATION TO CONTINUE FOR 4 DAYS. 08/04/17 16:10 Blood - Peripheral Venous Blood Culture - Preliminary NO GROWTH OBTAINED AFTER 24 HOURS, INCUBATION TO CONTINUE FOR 4 DAYS. 08/05/17 08:30 Nasopharyngeal Swab Influenza Types A,B Antigen (JE) - Final 08/05/17 08:30 Nasopharyngeal Swab - Final Abdominal ultrasound - fatty liver vs hepatocellular disease ASSESSMENT AND PLAN: 61 yom with PMHx of COPD (?Second hand smoking), ETOH abuse, admitted with URI like illness, COPD excaerbation. -URI like illness -Acute COPD exacerbation -Lung nodule -ETOH abuse/withdrawal -?Fatty liver (no evidence of cirrhosis on prior imaging). -h/o Migraine Plan: Prednisone 40 mg daily, nebs, taper oxygen as tolerated Check pre and post ambulatory oxygen saturation. s CT chest now, outpatient follow up. Nursing events noted, patient tremulous and unsteady. Place on librium taper and get PT eval. Detox consult with Dr. Walker, ?if can go to [facility]. LFTs, INR WNL. abdominal ultrasound with no cirrhosis concerns. Fioricet prn for migraine. GI/DVTPPX Dispo planning in 24 hours pending PT eval and detox plan of care. PLan discussed with patient in detail, all questions answered.
--- NOTE | 2017-08-06 15:00 | CONSULT ---
Consult Detox [facility] Reason for Current Admission/Consult: alcohol use disorder Referred by:: michelle peterson MD - History History of Present Illness: 61 yo m with long hisotry of poysubstance use, now only using alcohol, drinks several beers, no h/o seiziures or DTS, has alcoholwithdrawwal sx when he does not drink admitted for exacerbation of COPD. does not smoke. alcholic liver disease,started on librium which he is tolerating well, somewhat tremulous - History Source History Provided By: Patient, Medical Record, Caregiver Limitations to Obtaining History: No Limitations - Alcohol/Substance Use Hx Alcohol Use: Yes Hx Substance Use: Yes (no longer using any other substances) Hx Substance Use Treatment: Yes - Current Drug/Alcohol Use Alcohol Route: Oral Frequency: Daily Amount used: gallon Age of first use: 16 Date of Last Use: 08/05/17 - Significant Medical Findings: 61 yo m w h/o chronic alcoholism and alcohol withdrawal sx when he does not drink, now tremulous admitted for exacerbation of COPD needs libirum detox while hosptialized. CIWA Score - CIWA Score Nausea/Vomitin-Mild Nausea/No Vomiting Muscle Tremors: 3 Anxiety: 3 Agitation: 2 Paroxysmal Sweats: 1-Minimal Palms Moist Orientation: 0-Oriented Tacttile Disturbances: 1-Very Mild Itch/Numbness Auditory Disturbances: 0-None Visual Disturbances: 0-None Headache: 0-None Present CIWA-Ar Total Score: 11 Assessment Plan - Diagnosis (1) Drug-induced mood disorder Status: Acute (2) Alcohol dependence with uncomplicated withdrawal Status: Chronic (3) Asthma Status: Chronic Qualifiers: Asthma severity: mild intermittent Asthma complication type: uncomplicated Qualified Code(s): J45.20 - Mild intermittent asthma, uncomplicated (4) COPD (chronic obstructive pulmonary disease) Status: Chronic Qualifiers: COPD type: COPD with acute exacerbation Qualified Code(s): J44.1 - Chronic obstructive pulmonary disease with (acute) exacerbation (5) GERD (gastroesophageal reflux disease) Status: Chronic Qualifiers: Esophagitis presence: without esophagitis Qualified Code(s): K21.9 - Gastro -esophageal reflux disease without esophagitis - Plan Plan: chart, imagin, labs reviewed. case dicussed with medical providers, patient examined and history taken. Pateint requrires libirum detox, fluids while hosptialized, does not want to go to inpatient rehab at this time, can refer to [facility] for intensive outpatient treatment of alcohol use idsorder when d/c. or transfer to [facility] for rehab when medically stable if he wants rehab, should complete detox while hosptialized. Connor Walker MD [phone] - Medication Detox Regimen/Protocol: Librium
--- NOTE | 2017-08-06 17:02 | PN ---
Physical Exam: SUBJECTIVE: Over the weekend pt was placed back on librium protocol at a starting dose of 25 x4 doses due to increased tremulousness. No acute events overnight. Pt still has wet-sounding cough without production currently. Denies any other symptoms including fever/chills, SOB, CP/discomfort, abdominal pain, leg edema. OBJECTIVE: Vital Signs Period Temp Pulse Resp BP Sys/Avila Pulse Ox Last 24 Hr 97.9 F-98.5 F 53-74 18-22 96-134/58-78 94-98 GENERAL: NAD, awake, alert, and fully oriented, slight tremulousness present HEENT: NC/AT, EOMI, BRIANA LUNGS: Bibasillar end-expiratory wheezes noted bilaterally, no crackles, no accessory muscle use. HEART: RRR, S1, S2 without murmur ABDOMEN: Soft, nontender, nondistended, normoactive bowel sounds, no guarding, no rebound, no hepatomegaly via percussion or palpation, no masses. No asterixis of note EXTREMITIES: 2+ pulses, warm, well-perfused, no edema. NEUROLOGICAL: Cranial nerves II through XII grossly intact. Slightly tremulous with intention and rest PSYCH: Normal mood, normal affect. SKIN: Warm, dry, no rashes or lesions noted Laboratory Results - last 24 hr 08/06/17 08/06/17 08/06/17 07:00 07:00 07:00 WBC 9.6 D RBC 4.18 Hgb 13.1 Hct 39.4 MCV 94.4 MCH 31.3 MCHC 33.1 RDW 13.7 Plt Count 163 D MPV 9.2 Neutrophils % 73.6 Lymphocytes % 18.9 D Monocytes % 6.5 D Eosinophils % 0.8 D Basophils % 0.2 PT with INR 13.20 H INR 1.17 H Sodium 144 Potassium 3.8 Chloride 113 H Carbon Dioxide 24 Anion Gap 7 L BUN 10 Creatinine 0.7 D Creat Clearance w eGFR > 60 Random Glucose 97 D Calcium 7.7 L Total Bilirubin 0.8 AST 14 L D ALT 24 Alkaline Phosphatase 66 Total Protein 6.0 L Albumin 2.8 L Active Medications Generic Name Dose Route Start Last Admin Trade Name Freq PRN Reason Stop Dose Admin Acetaminophen 650 mg 08/05/17 16:31 Tylenol - PO Q6H PRN FEVER OR PAIN Acetaminophen/Butalbital/Caffeine 1 tablet 08/05/17 16:29 08/05/17 16:54 Fioricet - PO 1 tablet Q6H PRN Administration HEADACHE Albuterol Sulfate 1 amp 08/04/17 20:05 08/05/17 04:32 Ventolin 0.083% Nebulizer Soln - NEB 1 amp Q4H PRN Administration SHORT OF BREATH/WHEEZING Albuterol/Ipratropium 1 amp 08/04/17 22:00 08/06/17 14:36 Duoneb - NEB 1 amp TIDR MARIA DE JESUS Administration Budesonide/Formoterol Fumarate 1 puff 08/04/17 22:00 08/06/17 10:34 Symbicort 160/4.5mcg - IH 1 puff BID MARIA DE JESUS Administration Chlordiazepoxide HCl 25 mg 08/05/17 03:23 08/05/17 23:57 Librium - PO 08/08/17 03:22 25 mg Q4H PRN Administration WITHDRAWAL(CONT SUBST) Chlordiazepoxide HCl 25 mg 08/06/17 11:00 08/06/17 10:37 Librium - PO 08/07/17 05:01 25 mg [id number] MARIA DE JESUS Administration Chlordiazepoxide HCl 15 mg 08/07/17 11:00 Librium - PO 08/08/17 05:01 [id number] MARIA DE JESUS Docusate Sodium 100 mg 08/05/17 22:00 08/06/17 10:33 Colace - PO 100 mg BID MARIA DE JESUS Administration Folic Acid 1 mg 08/05/17 10:00 08/06/17 10:33 Folic Acid - PO 1 mg DAILY MARIA DE JESUS Administration Guaifenesin 10 ml 08/06/17 00:07 08/06/17 00:16 Robitussin - PO 10 ml Q6H PRN Administration COUGH Heparin Sodium (Porcine) 5,000 unit 08/04/17 22:00 08/06/17 14:07 Heparin - SQ 5,000 unit TID MARIA DE JESUS Administration Sodium Chloride 1,000 mls @ 100 mls/hr 08/05/17 12:00 08/06/17 11:31 Normal Saline - IV 100 mls/hr ASDIR MARIA DE JESUS Administration Polyethylene Glycol 17 gm 08/05/17 16:30 08/05/17 16:55 Miralax (For Daily Use) - PO 17 gm DAILY PRN Administration CONSTIPATION Prednisone 40 mg 08/05/17 10:00 08/06/17 10:33 Deltasone - PO 40 mg DAILY MARIA DE JESUS Administration Multivit/Folic Acid/Iron 1 tab 08/07/17 10:00 Vitamins (Sjr) - PO DAILY MARIA DE JESUS Senna 2 tab 08/05/17 22:00 08/05/17 22:01 Senna - PO 2 tab HS MARIA DE JESUS Administration Thiamine HCl 100 mg 08/06/17 22:00 Vitamin B1 - PO HS MARIA DE JESUS ASSESSMENT/PLAN: 61yo M with h/o COPD, asthma, alcoholic cirrhosis, and alcohol abuse who presents with SOB x1.5 weeks. 1) Acute hypoxic respiratory distress --2/2 to COPD exacerbation --Symbicort 160/4.5 --Duonebs TID maria de jesus --Albuterol PRN q4h --Continue NC; titrate to SpO2 >90% --Flu Swab negative --Prednisone 40 PO qDaily 2) Alcohol abuse --Last drink per pt 4 days ago --Alcohol level ordered -CIWA 5 with only tremulousness at rest --withdrawal most likely --Librium protocol on board --Detox Consult --Thiamine and folic acid tomorrow daily 3) Eosinophilia --2/2 to reactive airway and asthma vs. neoplasm due to prior CT with pulm nodules --RPT Chest CT showing STABLE pulmonary nodules compared with previous Chest CT --No allergies 4) Fatty hepatic infiltrate vs. alcoholic cirrhosis --LFTs WNL with exception of 1.1 T. Bili --ABD US today --Revealed moderately dense echotexture to the liver; fatty infiltrate vs. hepatocellular disease, correlate with liver enzymes --most likely fatty infiltrate given LFTs FEN: Fluids: None currently Electrolyte abnormalities: None currently Nutrition: Regular diet PPX: DVT - Mod risk; Heparin 5000U SQ TID Code Status: Full Code Dispo: Continue M/S Case discussed with Dr. Adrienne Rao, DO - Internal Medicine PGY-1 Visit type - Emergency Visit Emergency Visit: No - New Patient This patient is new to me today: No - Critical Care Critical Care patient: No
[2017-08-06] MEDS: THIAMINE HCL 100 MG TABLET (FP) PO SCH (21:23)
[2017-08-06] MEDS: SENNOSIDES 8.6MG TABLET (FP) PO SCH (21:23)
[2017-08-06] MEDS: ACETAMINOPHEN/CAFFEINE/BUTALBITAL 1 TAB PO PRN (21:28)
[2017-08-06 21:57] LABS: URINE AMPHETAMINES NEGATIVE ng/ml (CUTOFF=500)
[2017-08-06 21:58] LABS: COCAINE, UR NEGATIVE ng/ml (CUTOFF=300); METHADONE, UR NEGATIVE ng/ml (CUTOFF=300); OPIATES, URI NEGATIVE ng/ml (CUTOFF=300); PHENCYCLIDINE,URINE NEGATIVE ng/ml (CUTOFF=25)
[2017-08-06 22:00] LABS: URINE BARBITURATES POSITIVE ng/ml (CUTOFF=200); URINE BENZODIAZEPINES POSITIVE ng/ml (CUTOFF=200)
--- NOTE | 2017-08-06 22:04 | EKG ---
Test Reason : Blood Pressure : / mmHG Vent. Rate : 080 BPM Atrial Rate : 080 BPM P-R Int : 128 ms QRS Dur : 084 ms QT Int : 388 ms P-R-T Axes : 053 040 021 degrees QTc Int : 447 ms NORMAL SINUS RHYTHM NORMAL ECG WHEN COMPARED WITH ECG OF 02-MAY-2017 00:02, VENT. RATE HAS INCREASED BY 27 BPM Confirmed by LUKE MARTINEZ MD ([id number]) on 08/06/2017 10:04:01 PM Referred By: Confirmed By:LUKE MARTINEZ MD
[2017-08-07] MEDS: chlordiazePOXIDE HCL 25 MG CAPSULE PO SCH ×2 (01:15→06:14)
[2017-08-07] MEDS ORDERED: chlordiazePOXIDE 5 MG CAPSULE PO SCH (05:00)
[2017-08-07] MEDS: HEPARIN NA (PORCINE) 5,000 UNITS/ML 1ML VIAL SQ SCH ×3 (06:14→21:29)
[2017-08-07] MEDS: ALBUTEROL SO4 2.5/IPRATROPIUM 0.5 INH SOL 3 ML VIAL.NEB. NEB SCH ×2 (06:30→21:05)
--- NOTE | 2017-08-07 07:58 | PN ---
Physical Exam: SUBJECTIVE: No events overnight. This morning pt has nonradiating left chest pain located under left pectoralis muscle for the past 6 minutes. Pt reports laying in bed when it developed and not associated with deep inspiration or cough. Pt denies SOB, visual changes, diaphoresis, jaw claudication, palpitations. Otherwise pt's breathing feels better than previous day. OBJECTIVE: Vital Signs Period Temp Pulse Resp BP Sys/Avila Pulse Ox Last 24 Hr 97.6 F-98.2 F 53-74 18-22 126-142/70-78 93-98 GENERAL: NAD, awake, alert, and fully oriented HEENT: LUNGS: Trace bibasillar coarse sounds bilaterally, no overt wheezing, no crackles, no accessory muscle use. HEART: Slightly reproducible chest pain upon palpation, RRR S1, S2 without murmur ABDOMEN: Soft, nontender, nondistended, normoactive bowel sounds, no guarding, no hepatomegaly, no masses. EXTREMITIES: 2+ pulses, warm, well-perfused, no edema. NEUROLOGICAL: Nonfocal exam, speech impediment at baseline; otherwise normal speech. Gait not observed PSYCH: Normal mood, normal affect. SKIN: Warm, dry, no rashes or lesions noted Laboratory Results - last 24 hr 08/06/17 08/06/17 08/06/17 07:00 07:00 07:00 WBC 9.6 D RBC 4.18 Hgb 13.1 Hct 39.4 MCV 94.4 MCH 31.3 MCHC 33.1 RDW 13.7 Plt Count 163 D MPV 9.2 Neutrophils % 73.6 Lymphocytes % 18.9 D Monocytes % 6.5 D Eosinophils % 0.8 D Basophils % 0.2 PT with INR 13.20 H INR 1.17 H Sodium 144 Potassium 3.8 Chloride 113 H Carbon Dioxide 24 Anion Gap 7 L BUN 10 Creatinine 0.7 D Creat Clearance w eGFR > 60 Random Glucose 97 D Calcium 7.7 L Total Bilirubin 0.8 AST 14 L D ALT 24 Alkaline Phosphatase 66 Total Protein 6.0 L Albumin 2.8 L Opiates Screen Methadone Screen Barbiturate Screen Phencyclidine Screen Ur Amphetamines Screen MDMA (Ecstasy) Screen Benzodiazepines Screen Cocaine Screen U Marijuana (THC) Screen 08/06/17 19:05 WBC RBC Hgb Hct MCV MCH MCHC RDW Plt Count MPV Neutrophils % Lymphocytes % Monocytes % Eosinophils % Basophils % PT with INR INR Sodium Potassium Chloride Carbon Dioxide Anion Gap BUN Creatinine Creat Clearance w eGFR Random Glucose Calcium Total Bilirubin AST ALT Alkaline Phosphatase Total Protein Albumin Opiates Screen Negative Methadone Screen Negative Barbiturate Screen Positive Phencyclidine Screen Negative Ur Amphetamines Screen Negative MDMA (Ecstasy) Screen Negative Benzodiazepines Screen Positive Cocaine Screen Negative U Marijuana (THC) Screen Negative Active Medications Generic Name Dose Route Start Last Admin Trade Name Freq PRN Reason Stop Dose Admin Acetaminophen 650 mg 08/05/17 16:31 08/07/17 07:53 Tylenol - PO 650 mg Q6H PRN Administration FEVER OR PAIN Acetaminophen/Butalbital/Caffeine 1 tablet 08/05/17 16:29 08/06/17 21:28 Fioricet - PO 1 tablet Q6H PRN Administration HEADACHE Albuterol Sulfate 1 amp 08/04/17 20:05 08/05/17 04:32 Ventolin 0.083% Nebulizer Soln - NEB 1 amp Q4H PRN Administration SHORT OF BREATH/WHEEZING Albuterol/Ipratropium 1 amp 08/04/17 22:00 08/07/17 06:30 Duoneb - NEB 1 amp TIDR MARIA DE JESUS Administration Budesonide/Formoterol Fumarate 1 puff 08/04/17 22:00 08/06/17 21:23 Symbicort 160/4.5mcg - IH 1 puff BID MARIA DE JESUS Administration Chlordiazepoxide HCl 25 mg 08/05/17 03:23 08/05/17 23:57 Librium - PO 08/08/17 03:22 25 mg Q4H PRN Administration WITHDRAWAL(CONT SUBST) Chlordiazepoxide HCl 15 mg 08/07/17 11:00 Librium - PO 08/08/17 05:01 [id number] MARIA DE JESUS Docusate Sodium 100 mg 08/05/17 22:00 08/06/17 21:23 Colace - PO 100 mg BID MARIA DE JESUS Administration Folic Acid 1 mg 08/05/17 10:00 08/06/17 10:33 Folic Acid - PO 1 mg DAILY MARIA DE JESUS Administration Guaifenesin 10 ml 08/06/17 00:07 08/06/17 00:16 Robitussin - PO 10 ml Q6H PRN Administration COUGH Heparin Sodium (Porcine) 5,000 unit 08/04/17 22:00 08/07/17 06:14 Heparin - SQ 5,000 unit TID MARIA DE JESUS Administration Sodium Chloride 1,000 mls @ 100 mls/hr 08/05/17 12:00 08/06/17 11:31 Normal Saline - IV 100 mls/hr ASDIR MARIA DE JESUS Administration Polyethylene Glycol 17 gm 08/05/17 16:30 08/05/17 16:55 Miralax (For Daily Use) - PO 17 gm DAILY PRN Administration CONSTIPATION Prednisone 40 mg 08/05/17 10:00 08/06/17 10:33 Deltasone - PO 40 mg DAILY MARIA DE JESUS Administration Multivit/Folic Acid/Iron 1 tab 08/07/17 10:00 Vitamins (Sjr) - PO DAILY MARIA DE JESUS Senna 2 tab 08/05/17 22:00 08/06/17 21:23 Senna - PO 2 tab HS MARIA DE JESUS Administration Thiamine HCl 100 mg 08/06/17 22:00 08/06/17 21:23 Vitamin B1 - PO 100 mg HS MARIA DE JESUS Administration ASSESSMENT/PLAN: 61yo M with h/o COPD, asthma, alcoholic cirrhosis, and alcohol abuse who presents with SOB x1.5 weeks. 1) Acute hypoxic respiratory distress --2/2 to COPD exacerbation --Symbicort 160/4.5 --Duonebs TID maria de jesus --Albuterol PRN q4h --D/C NC due to RA saturation >93% --Flu Swab negative --Prednisone 30 PO qDaily tomorrow (start of prednisone taper) 2) Alcohol abuse --Last drink per pt 4 days ago --Alcohol level ordered -CIWA 2 with only tremulousness as symptom --withdrawal most likely --Librium protocol to be finished tomorrow morning --Detox Consult --Thiamine and folic acid tomorrow daily 3) Eosinophilia --2/2 to reactive airway and asthma vs. neoplasm due to prior CT with pulm nodules --RPT Chest CT showing STABLE pulmonary nodules compared with previous Chest CT --Will need to follow-up with outpatient vehicle trimmer --No allergies 4) Fatty hepatic infiltrate vs. alcoholic cirrhosis --LFTs WNL with exception of 1.1 T. Bili --ABD US today --Revealed moderately dense echotexture to the liver; fatty infiltrate vs. hepatocellular disease, correlate with liver enzymes --most likely fatty infiltrate given LFTs 5) Atypical Chest pain -EKG ordered only showing sinus bradycardia without any other ST changes noted --troponin I ordered; negative --Reproducible upon palpation most likely costochronditis due to excessive breathing and coughing FEN: Fluids: None currently Electrolyte abnormalities: None currently Nutrition: Regular diet PPX: DVT - Mod risk; Heparin 5000U SQ TID Code Status: Full Code Dispo: Medically cleared to be discharged; however requires completion of detox ; pt would benefit from rehab, however no rehab beds in [facility]; d/c after detox Case discussed with Dr. Irina Rao, DO - Internal Medicine PGY-1 Visit type - Emergency Visit Emergency Visit: No - New Patient This patient is new to me today: No - Critical Care Critical Care patient: No
[2017-08-07] MEDS ORDERED: PT OWN MED DRAWER 7, Y5N ONE ×2 (09:13→10:52)
[2017-08-07] MEDS: DOCUSATE SODIUM 100 MG CAPSULE (FP) PO SCH ×2 (09:49→21:29)
[2017-08-07] MEDS: PRENATAL VITAMINS W/ FOLIC ACID TABLET (FP) PO SCH (09:49)
[2017-08-07] MEDS: BUDESONIDE/FORMETEROL FUMARATE 160/4.5 mcg INHALER IH SCH ×2 (09:49→11:18)
[2017-08-07] MEDS: predniSONE 20 MG TABLET (UD) PO SCH (09:49)
[2017-08-07] MEDS: FOLIC ACID 1 MG TABLET (FP) PO SCH (09:49)
[2017-08-07] MEDS: chlordiazePOXIDE 5 MG CAPSULE PO SCH ×2 (10:53→16:59)
[2017-08-07] MEDS: SODIUM CHLORIDE 1,000 ML IV SCH ×2 (10:54→14:31)
--- NOTE | 2017-08-07 14:45 | EKG ---
Test Reason : Blood Pressure : / mmHG Vent. Rate : 052 BPM Atrial Rate : 052 BPM P-R Int : 126 ms QRS Dur : 106 ms QT Int : 450 ms P-R-T Axes : 029 015 013 degrees QTc Int : 418 ms SINUS BRADYCARDIA OTHERWISE NORMAL ECG WHEN COMPARED WITH ECG OF 04-AUG-2017 16:15, VENT. RATE HAS DECREASED BY 28 BPM Confirmed by Pedro Anderson MD ([id number]) on 08/07/2017 2:44:35 PM Referred By: ROSALBA SHARP Confirmed By:Pedro Anderson MD
--- NOTE | 2017-08-07 15:34 | PN ---
Teaching Attending Note Name of Resident: Hitesh Rao ATTENDING PHYSICIAN STATEMENT I saw and evaluated the patient. I reviewed the resident's note and discussed the case with the resident. I agree with the resident's findings and plan as documented. SUBJECTIVE:c/o chest pain since last night. pt states he had it all night long but was able to sleep with it. no alleviating/exacerbating factors. pain does not radiate. cough is no longer productive. denies fever, chills, N/V/C/D OBJECTIVE: Last Vital Signs Temp Pulse Resp BP Pulse Ox 98.4 F 70 18 120/84 97 08/07/17 15:00 08/07/17 15:00 08/07/17 15:00 08/07/17 15:00 08/07/17 09:00 General NAD CV S1 S2 RRR nO murmur/rub/gallop + chest wall tenderness lungs CTA B/L no wheezing/rlaes/rhonchi Extremities +tremor at rest ASSESSMENT AND PLAN: 61 yo M with PMHx of COPD (?Second hand smoking), ETOH abuse, admitted with URI like illness, COPD excaerbation. 1. Acute COPD exacerbation. clinically improved. on slow steroid taper. does not require home O2. saturaitng 97% on RA. 2. Acute ETOH exacerbation- CIWA 4. on librium taper. counseled on risks assoc with continued drinking and increased risk in mortality. expresses desire to quit. interested in inpatient rehab however has done it several times in the past and did not work. on thimaine/folate/MVI 3. RLL nodule- stable in size. requires periodic surveillance 4. CP- musculoskeletal from persistent cough. cardiac enzymes neg x1. EKG negative. 5. DVT ppx- hep sq 6. medically optimized for transfer to [facility] to complete detox. as per there are no detox beds available. will remain hospitalized until detox completed or bed become available.
[2017-08-07] MEDS: SENNOSIDES 8.6MG TABLET (FP) PO SCH (21:29)
[2017-08-07] MEDS: THIAMINE HCL 100 MG TABLET (FP) PO SCH (21:29)
[2017-08-07] MEDS: ACETAMINOPHEN/CAFFEINE/BUTALBITAL 1 TAB PO PRN (21:38)
[2017-08-08] MEDS ORDERED: PT OWN MED DRAWER 7, Y5N ONE ×2 (00:17→09:18)
[2017-08-08] MEDS: chlordiazePOXIDE 5 MG CAPSULE PO SCH ×5 (00:18→22:23)
[2017-08-08] MEDS: HEPARIN NA (PORCINE) 5,000 UNITS/ML 1ML VIAL SQ SCH ×3 (05:41→21:33)
[2017-08-08] MEDS: ALBUTEROL SO4 2.5/IPRATROPIUM 0.5 INH SOL 3 ML VIAL.NEB. NEB SCH ×3 (08:55→23:06)
[2017-08-08 09:17] LABS: HEMATOCRIT 43.4 % (35.4-49); HEMOGLOBIN 14.1 GM/dL (11.7-16.9); MCH 30.8 pg (25.7-33.7); MCHC 32.5 g/dl (32.0-35.9); MEAN CELL VOLUME 94.7 fl (80-96); MEAN PLT VOLUME 8.9 fl (7.5-11.1); PLATELET COUNT 189 K/MM3 (134-434); RBC 4.59 M/mm3 (4.00-5.60); RDW 13.7 % (11.9-15.9); WHITE BLOOD COUNT 9.6 K/mm3 (4.0-10.0)
[2017-08-08] MEDS: FOLIC ACID 1 MG TABLET (FP) PO SCH (09:26)
[2017-08-08] MEDS: DOCUSATE SODIUM 100 MG CAPSULE (FP) PO SCH ×2 (09:26→21:32)
[2017-08-08] MEDS: BUDESONIDE/FORMETEROL FUMARATE 160/4.5 mcg INHALER IH SCH ×2 (09:26→21:32)
[2017-08-08] MEDS: predniSONE 10 MG TABLET (UD) PO SCH (09:26)
[2017-08-08] MEDS: PRENATAL VITAMINS W/ FOLIC ACID TABLET (FP) PO SCH (09:28)
[2017-08-08 09:35] LABS: ANION GAP 8 (8-16); BLOOD UREA NITROGEN 9 mg/dL (7-18); CALCIUM 8.8 mg/dL (8.5-10.1); CHLORIDE 109 mmol/L (98-107); CO2 24 mmol/L (21-32); CREATININE 0.8 mg/dL (0.7-1.3); GLUCOSE,RANDOM 134 mg/dL (74-106); POTASSIUM 3.7 mmol/L (3.5-5.1); SODIUM 141 mmol/L (136-145)
[2017-08-08 09:51] LABS: INR 1.13 (0.82-1.09); PROTHROMBIN TIME (PATIENT) 12.8 SEC (9.98-11.88)
[2017-08-08] MEDS ORDERED: chlordiazePOXIDE HCL 25 MG CAPSULE PO ONE ×2 (10:58→16:00)
--- NOTE | 2017-08-08 11:04 | PN ---
[facility] Progress Note (SOAP) Subjective: PATIENT STILL TREMULOUS, ANXIETY, WOULD LIKE TO GO TO INPATIENT REHAB AT [facility] AT THIS TIME Objective: 08/08/17 11:03 Vital Signs - 24 hr 08/07/17 08/07/17 08/07/17 15:00 16:30 20:00 Temperature 98.4 F 97.9 F 98.3 F Pulse Rate 70 60 58 L Respiratory 18 20 18 Rate Blood Pressure 120/84 125/61 122/90 O2 Sat by Pulse Oximetry (%) 08/07/17 08/08/17 08/08/17 21:00 06:00 10:00 Temperature 98 F 98.0 F Pulse Rate 56 L 72 Respiratory 18 18 18 Rate Blood Pressure 132/73 112/63 O2 Sat by Pulse 97 Oximetry (%) Laboratory Tests 08/04/17 08/04/17 08/04/17 16:00 16:10 16:10 WBC 7.2 RBC 5.17 Hgb 16.1 D Hct 49.4 H D MCV 95.5 MCH 31.1 MCHC 32.6 RDW 13.5 Plt Count 210 D MPV 9.2 Neutrophils % 52.9 Lymphocytes % 25.2 Monocytes % 7.7 Eosinophils % 12.8 H D Basophils % 1.4 PT with INR 12.60 H INR 1.12 PTT (Actin FS) 35.4 H Puncture Site ABG pH ABG pCO2 at Pt Temp ABG pO2 at Pt Temp ABG HCO3 ABG O2 Sat (Measured) ABG O2 Content ABG Base Excess David Test Carboxyhemoglobin Methemoglobin Oxygen Flow Rate Sodium Potassium Chloride Carbon Dioxide Anion Gap BUN Creatinine Creat Clearance w eGFR Random Glucose Lactic Acid Calcium Phosphorus Magnesium Total Bilirubin AST ALT Alkaline Phosphatase Creatine Kinase Troponin I B-Natriuretic Peptide Total Protein Albumin Urine Color Yellow Urine Appearance Clear Urine pH 5.0 Ur Specific [place] 1.014 Urine Protein Negative Urine Glucose (UA) Negative Urine Ketones Negative Urine Blood Negative Urine Nitrite Negative Urine Bilirubin Negative Urine Urobilinogen Negative Ur Leukocyte Esterase Negative Opiates Screen Methadone Screen Barbiturate Screen Phencyclidine Screen Ur Amphetamines Screen MDMA (Ecstasy) Screen Benzodiazepines Screen Cocaine Screen U Marijuana (THC) Screen Alcohol, Quantitative 08/04/17 08/04/17 08/04/17 16:10 16:10 16:10 WBC RBC Hgb Hct MCV MCH MCHC RDW Plt Count MPV Neutrophils % Lymphocytes % Monocytes % Eosinophils % Basophils % PT with INR INR PTT (Actin FS) Puncture Site ABG pH ABG pCO2 at Pt Temp ABG pO2 at Pt Temp ABG HCO3 ABG O2 Sat (Measured) ABG O2 Content ABG Base Excess David Test Carboxyhemoglobin Methemoglobin Oxygen Flow Rate Sodium 143 Potassium 4.4 Chloride 105 Carbon Dioxide 29 Anion Gap 9 BUN 10 D Creatinine 0.9 Creat Clearance w eGFR > 60 Random Glucose 98 Lactic Acid 1.2 Calcium 9.2 Phosphorus Magnesium Total Bilirubin 1.1 H AST 21 D ALT 26 Alkaline Phosphatase 98 Creatine Kinase 124 Troponin I < 0.02 B-Natriuretic Peptide 279.44 H Total Protein 7.7 Albumin 3.9 Urine Color Urine Appearance Urine pH Ur Specific [place] Urine Protein Urine Glucose (UA) Urine Ketones Urine Blood Urine Nitrite Urine Bilirubin Urine Urobilinogen Ur Leukocyte Esterase Opiates Screen Methadone Screen Barbiturate Screen Phencyclidine Screen Ur Amphetamines Screen MDMA (Ecstasy) Screen Benzodiazepines Screen Cocaine Screen U Marijuana (THC) Screen Alcohol, Quantitative 08/04/17 08/04/17 08/04/17 17:45 17:55 22:00 WBC RBC Hgb Hct MCV MCH MCHC RDW Plt Count MPV Neutrophils % Lymphocytes % Monocytes % Eosinophils % Basophils % PT with INR INR PTT (Actin FS) Puncture Site Right radial ABG pH 7.41 ABG pCO2 at Pt Temp 37.6 ABG pO2 at Pt Temp 66.3 L ABG HCO3 23.2 ABG O2 Sat (Measured) 93.0 ABG O2 Content 20.1 ABG Base Excess -0.7 David Test Positive Carboxyhemoglobin 0.9 Methemoglobin 0.7 Oxygen Flow Rate No Sodium Potassium Chloride Carbon Dioxide Anion Gap BUN Creatinine Creat Clearance w eGFR Random Glucose Lactic Acid Calcium Phosphorus Magnesium Total Bilirubin AST ALT Alkaline Phosphatase Creatine Kinase Troponin I B-Natriuretic Peptide Total Protein Albumin Urine Color Urine Appearance Urine pH Ur Specific [place] Urine Protein Urine Glucose (UA) Urine Ketones Urine Blood Urine Nitrite Urine Bilirubin Urine Urobilinogen Ur Leukocyte Esterase Opiates Screen Methadone Screen Barbiturate Screen Phencyclidine Screen Ur Amphetamines Screen MDMA (Ecstasy) Screen Benzodiazepines Screen Cocaine Screen U Marijuana (THC) Screen Alcohol, Quantitative < 5.0 08/05/17 08/05/17 08/06/17 06:30 06:30 07:00 WBC 5.1 9.6 D RBC 4.43 4.18 Hgb 14.3 D 13.1 Hct 41.4 D 39.4 MCV 93.5 94.4 MCH 32.2 31.3 MCHC 34.4 33.1 RDW 13.8 13.7 Plt Count 209 163 D MPV 9.5 9.2 Neutrophils % 89.6 H D 73.6 Lymphocytes % 8.4 D 18.9 D Monocytes % 1.8 L 6.5 D Eosinophils % 0.0 D 0.8 D Basophils % 0.2 0.2 PT with INR INR PTT (Actin FS) Puncture Site ABG pH ABG pCO2 at Pt Temp ABG pO2 at Pt Temp ABG HCO3 ABG O2 Sat (Measured) ABG O2 Content ABG Base Excess David Test Carboxyhemoglobin Methemoglobin Oxygen Flow Rate Sodium 141 Potassium 4.0 Chloride 107 Carbon Dioxide 24 Anion Gap 10 BUN 12 Creatinine 0.9 Creat Clearance w eGFR > 60 Random Glucose 154 H D Lactic Acid Calcium 8.4 L Phosphorus 1.7 L D Magnesium 1.7 L Total Bilirubin 1.0 AST 20 ALT 24 Alkaline Phosphatase 80 Creatine Kinase Troponin I B-Natriuretic Peptide Total Protein 6.8 Albumin 3.4 Urine Color Urine Appearance Urine pH Ur Specific [place] Urine Protein Urine Glucose (UA) Urine Ketones Urine Blood Urine Nitrite Urine Bilirubin Urine Urobilinogen Ur Leukocyte Esterase Opiates Screen Methadone Screen Barbiturate Screen Phencyclidine Screen Ur Amphetamines Screen MDMA (Ecstasy) Screen Benzodiazepines Screen Cocaine Screen U Marijuana (THC) Screen Alcohol, Quantitative 08/06/17 08/06/17 08/06/17 07:00 07:00 19:05 WBC RBC Hgb Hct MCV MCH MCHC RDW Plt Count MPV Neutrophils % Lymphocytes % Monocytes % Eosinophils % Basophils % PT with INR 13.20 H INR 1.17 H PTT (Actin FS) Puncture Site ABG pH ABG pCO2 at Pt Temp ABG pO2 at Pt Temp ABG HCO3 ABG O2 Sat (Measured) ABG O2 Content ABG Base Excess David Test Carboxyhemoglobin Methemoglobin Oxygen Flow Rate Sodium 144 Potassium 3.8 Chloride 113 H Carbon Dioxide 24 Anion Gap 7 L BUN 10 Creatinine 0.7 D Creat Clearance w eGFR > 60 Random Glucose 97 D Lactic Acid Calcium 7.7 L Phosphorus Magnesium Total Bilirubin 0.8 AST 14 L D ALT 24 Alkaline Phosphatase 66 Creatine Kinase Troponin I B-Natriuretic Peptide Total Protein 6.0 L Albumin 2.8 L Urine Color Urine Appearance Urine pH Ur Specific [place] Urine Protein Urine Glucose (UA) Urine Ketones Urine Blood Urine Nitrite Urine Bilirubin Urine Urobilinogen Ur Leukocyte Esterase Opiates Screen Negative Methadone Screen Negative Barbiturate Screen Positive Phencyclidine Screen Negative Ur Amphetamines Screen Negative MDMA (Ecstasy) Screen Negative Benzodiazepines Screen Positive Cocaine Screen Negative U Marijuana (THC) Screen Negative Alcohol, Quantitative 08/07/17 08/08/17 08/08/17 08:47 09:04 09:04 WBC 9.6 RBC 4.59 Hgb 14.1 Hct 43.4 MCV 94.7 MCH 30.8 MCHC 32.5 RDW 13.7 Plt Count 189 MPV 8.9 Neutrophils % Lymphocytes % Monocytes % Eosinophils % Basophils % PT with INR 12.80 H INR 1.13 PTT (Actin FS) Puncture Site ABG pH ABG pCO2 at Pt Temp ABG pO2 at Pt Temp ABG HCO3 ABG O2 Sat (Measured) ABG O2 Content ABG Base Excess David Test Carboxyhemoglobin Methemoglobin Oxygen Flow Rate Sodium Potassium Chloride Carbon Dioxide Anion Gap BUN Creatinine Creat Clearance w eGFR Random Glucose Lactic Acid Calcium Phosphorus Magnesium Total Bilirubin AST ALT Alkaline Phosphatase Creatine Kinase Troponin I < 0.02 B-Natriuretic Peptide Total Protein Albumin Urine Color Urine Appearance Urine pH Ur Specific [place] Urine Protein Urine Glucose (UA) Urine Ketones Urine Blood Urine Nitrite Urine Bilirubin Urine Urobilinogen Ur Leukocyte Esterase Opiates Screen Methadone Screen Barbiturate Screen Phencyclidine Screen Ur Amphetamines Screen MDMA (Ecstasy) Screen Benzodiazepines Screen Cocaine Screen U Marijuana (THC) Screen Alcohol, Quantitative 08/08/17 09:04 WBC RBC Hgb Hct MCV MCH MCHC RDW Plt Count MPV Neutrophils % Lymphocytes % Monocytes % Eosinophils % Basophils % PT with INR INR PTT (Actin FS) Puncture Site ABG pH ABG pCO2 at Pt Temp ABG pO2 at Pt Temp ABG HCO3 ABG O2 Sat (Measured) ABG O2 Content ABG Base Excess David Test Carboxyhemoglobin Methemoglobin Oxygen Flow Rate Sodium 141 Potassium 3.7 Chloride 109 H Carbon Dioxide 24 Anion Gap 8 BUN 9 Creatinine 0.8 Creat Clearance w eGFR Random Glucose 134 H D Lactic Acid Calcium 8.8 Phosphorus Magnesium Total Bilirubin AST ALT Alkaline Phosphatase Creatine Kinase Troponin I B-Natriuretic Peptide Total Protein Albumin Urine Color Urine Appearance Urine pH Ur Specific [place] Urine Protein Urine Glucose (UA) Urine Ketones Urine Blood Urine Nitrite Urine Bilirubin Urine Urobilinogen Ur Leukocyte Esterase Opiates Screen Methadone Screen Barbiturate Screen Phencyclidine Screen Ur Amphetamines Screen MDMA (Ecstasy) Screen Benzodiazepines Screen Cocaine Screen U Marijuana (THC) Screen Alcohol, Quantitative Assessment: 08/08/17 11:04 ALCOHOL WITHDRAWAL SX CONT, CONT DETOX 10MG Q6H X 25MG X1 DOSE STAT. ARRANGE FOR REHAB BED IN AM
--- NOTE | 2017-08-08 14:15 | PN ---
Teaching Attending Note Name of Resident: Hitesh Rao ATTENDING PHYSICIAN STATEMENT I saw and evaluated the patient. I reviewed the resident's note and discussed the case with the resident. I agree with the resident's findings and plan as documented. SUBJECTIVE:c/o anxiety about going home. states cough is improved. denies CP, SOB, fever, chills, N/V/C/D, auditory/visual hallucinations OBJECTIVE: Last Vital Signs Temp Pulse Resp BP Pulse Ox 98.0 F 72 18 112/63 95 08/08/17 10:00 08/08/17 10:00 08/08/17 10:00 08/08/17 10:08/08/17 09:00 General NAD CV S1 S2 RRR nO murmur/rub/gallop lungs CTA B/L no wheezing/rlaes/rhonchi Extremities +tremor at rest ASSESSMENT AND PLAN: 61 yo M with PMHx of COPD (?Second hand smoking), ETOH abuse, admitted with URI like illness, COPD excaerbation. 1. Acute COPD exacerbation. clinically improved. on slow steroid taper. does not require home O2. saturating 97% on RA. 2. Acute ETOH exacerbation- CIWA 4. complete librum taper this morning. evaluated by detox specialist and believes he may need prolonged taper. re- started on librium 25mg for additional 4 doses. interested in inpatient rehab. will call in AM if beds available. if not outpatient has been set up. on thimaine/folate/MVI 3. RLL nodule- stable in size. requires periodic surveillance 4. CP- musculoskeletal from persistent cough. now resolved. cardiac enzymes neg x1. EKG negative. 5. DVT ppx- hep sq
--- NOTE | 2017-08-08 14:34 | PN ---
Physical Exam: SUBJECTIVE: Patient seen and examined earlier in the morning. No acute events overnight. No new complaints. Dr. Walker saw pt and placed pt on final taper of librium that will finish tomorrow. OBJECTIVE: Vital Signs Period Temp Pulse Resp BP Sys/Avila Pulse Ox Last 24 Hr 97.9 F-98.4 F 56-72 16-20 112-132/61-90 95-97 GENERAL: NAD, awake, alert, and fully oriented LUNGS: Trace bibasillar coarse sounds bilaterally, no overt wheezing, no crackles, no accessory muscle use. HEART: Slightly reproducible chest pain upon palpation, RRR S1, S2 without murmur ABDOMEN: Soft, nontender, nondistended, normoactive bowel sounds, no guarding, no hepatomegaly, no masses. EXTREMITIES: 2+ pulses, warm, well-perfused, no edema. NEUROLOGICAL: Nonfocal exam, speech impediment at baseline; otherwise normal speech. Gait not observed PSYCH: Normal mood, normal affect. SKIN: Warm, dry, no rashes or lesions noted Laboratory Results - last 24 hr 08/08/17 08/08/17 08/08/17 09:04 09:04 09:04 WBC 9.6 RBC 4.59 Hgb 14.1 Hct 43.4 MCV 94.7 MCH 30.8 MCHC 32.5 RDW 13.7 Plt Count 189 MPV 8.9 PT with INR 12.80 H INR 1.13 Sodium 141 Potassium 3.7 Chloride 109 H Carbon Dioxide 24 Anion Gap 8 BUN 9 Creatinine 0.8 Random Glucose 134 H D Calcium 8.8 Active Medications Generic Name Dose Route Start Last Admin Trade Name Freq PRN Reason Stop Dose Admin Albuterol Sulfate 1 amp 08/04/17 20:05 08/05/17 04:32 Ventolin 0.083% Nebulizer Soln - NEB 1 amp Q4H PRN Administration SHORT OF BREATH/WHEEZING Albuterol/Ipratropium 1 amp 08/07/17 13:55 08/08/17 08:55 Duoneb - NEB 1 amp RTID NESSA Administration Budesonide/Formoterol Fumarate 1 puff 08/04/17 22:00 08/08/17 09:26 Symbicort 160/4.5mcg - IH 1 puff BID NESSA Administration Chlordiazepoxide HCl 10 mg 08/08/17 11:00 Librium - PO 08/09/17 05:01 [id number] NESSA Chlordiazepoxide HCl 25 mg 08/08/17 13:00 Librium - PO 08/08/17 13:01 ONCE ONE Docusate Sodium 100 mg 08/05/17 22:00 08/08/17 09:26 Colace - PO 100 mg BID NESSA Administration Folic Acid 1 mg 08/05/17 10:00 08/08/17 09:26 Folic Acid - PO 1 mg DAILY NESSA Administration Guaifenesin 10 ml 08/06/17 00:07 08/06/17 00:16 Robitussin - PO 10 ml Q6H PRN Administration COUGH Heparin Sodium (Porcine) 5,000 unit 08/04/17 22:00 08/08/17 05:41 Heparin - SQ 5,000 unit TID NESSA Administration Polyethylene Glycol 17 gm 08/05/17 16:30 08/05/17 16:55 Miralax (For Daily Use) - PO 17 gm DAILY PRN Administration CONSTIPATION Prednisone 30 mg 08/08/17 10:00 08/08/17 09:26 Deltasone - PO 08/09/17 10:01 30 mg DAILY NESSA Administration Multivit/Folic Acid/Iron 1 tab 08/07/17 10:00 08/08/17 09:28 Vitamins (Sjr) - PO 1 tab DAILY NESSA Administration Senna 2 tab 08/05/17 22:00 08/07/17 21:29 Senna - PO 2 tab HS NESSA Administration Thiamine HCl 100 mg 08/06/17 22:00 08/07/17 21:29 Vitamin B1 - PO 100 mg HS NESSA Administration ASSESSMENT/PLAN: 61yo M with h/o COPD, asthma, alcoholic cirrhosis, and alcohol abuse who presents with SOB x1.5 weeks. 1) Acute hypoxic respiratory distress --RESOLVED --2/2 to COPD exacerbation --Symbicort 160/4.5 --Duonebs TID PRN --Albuterol PRN q4h --Flu Swab negative --Prednisone 30 PO qDaily 2) Alcohol abuse --Last drink per pt 4 days prior to visit --Alcohol level ordered -CIWA 2 with only tremulousness as symptom --withdrawal most likely --Librium protocol to be finished tomorrow morning --Detox Consult --Thiamine and folic acid tomorrow daily 3) Eosinophilia --2/2 to reactive airway and asthma vs. neoplasm due to prior CT with pulm nodules --RPT Chest CT showing STABLE pulmonary nodules compared with previous Chest CT --Will need to follow-up with outpatient flight readiness technician --No allergies 4) Fatty hepatic infiltrate vs. alcoholic cirrhosis --LFTs WNL with exception of 1.1 T. Bili --ABD US today --Revealed moderately dense echotexture to the liver; fatty infiltrate vs. hepatocellular disease, correlate with liver enzymes --most likely fatty infiltrate given LFTs 5) Atypical Chest pain --RESOLVED -EKG ordered only showing sinus bradycardia without any other ST changes noted --troponin I ordered; negative --Reproducible upon palpation most likely costochronditis due to excessive breathing and coughing FEN: Fluids: None currently Electrolyte abnormalities: None currently Nutrition: Regular diet PPX: DVT - Mod risk; Heparin 5000U SQ TID Code Status: Full Code Dispo: Medically cleared to be discharged; however requires completion of detox ; pt would benefit from rehab, however no rehab beds in [facility]; d/c after detox Case discussed with Dr. Irina Rao, DO - Internal Medicine PGY-1 Visit type - Emergency Visit Emergency Visit: No - New Patient This patient is new to me today: No - Critical Care Critical Care patient: No
[2017-08-08] MEDS: chlordiazePOXIDE HCL 25 MG CAPSULE PO ONE ×2 (15:50→15:53)
[2017-08-08] MEDS: ACETAMINOPHEN/CAFFEINE/BUTALBITAL 1 TAB PO PRN ×2 (15:52→21:46)
[2017-08-08] MEDS ORDERED: chlordiazePOXIDE 5 MG CAPSULE PO SCH (17:00)
[2017-08-08] MEDS: SENNOSIDES 8.6MG TABLET (FP) PO SCH (21:32)
[2017-08-08] MEDS: THIAMINE HCL 100 MG TABLET (FP) PO SCH (21:39)
[2017-08-09] MEDS: HEPARIN NA (PORCINE) 5,000 UNITS/ML 1ML VIAL SQ SCH ×2 (05:47→13:23)
[2017-08-09] MEDS: chlordiazePOXIDE 5 MG CAPSULE PO SCH (05:47)
[2017-08-09] MEDS ORDERED: PT OWN MED DRAWER 7, Y5N ONE (09:29)
[2017-08-09] MEDS: DOCUSATE SODIUM 100 MG CAPSULE (FP) PO SCH (09:31)
[2017-08-09] MEDS: FOLIC ACID 1 MG TABLET (FP) PO SCH (09:31)
[2017-08-09] MEDS: predniSONE 10 MG TABLET (UD) PO SCH (09:31)
[2017-08-09] MEDS: BUDESONIDE/FORMETEROL FUMARATE 160/4.5 mcg INHALER IH SCH (09:32)
[2017-08-09] MEDS: PRENATAL VITAMINS W/ FOLIC ACID TABLET (FP) PO SCH (09:32)
--- NOTE | 2017-08-09 13:20 | PN ---
Teaching Attending Note Name of Resident: Hitesh Rao ATTENDING PHYSICIAN STATEMENT I saw and evaluated the patient. I reviewed the resident's note and discussed the case with the resident. I agree with the resident's findings and plan as documented. SUBJECTIVE:mild SIMMONS this Am. denies Cp, SOB, fever, chills, cough, N/V/C/D OBJECTIVE: Last Vital Signs Temp Pulse Resp BP Pulse Ox 96.8 F L 78 20 127/71 91 L 08/09/17 08:20 08/09/17 09:56 08/09/17 06:00 08/09/17 08:20 08/09/17 09:56 General NAD CV S1 S2 RRR nO murmur/rub/gallop lungs CTA B/L no wheezing/rlaes/rhonchi Extremities +tremor at rest ASSESSMENT AND PLAN: 61 yo M with PMHx of COPD (?Second hand smoking), ETOH abuse, admitted with URI like illness, COPD excaerbation. 1. Acute COPD exacerbation. clinically improved. on slow steroid taper. does not require home O2. saturating 97% on RA. 2. Acute ETOH exacerbation- CIWA 2. librium taper was extended another day. now completed. will see if [facility] has rehab beds today if not will need to go home and f/u with outpatient services. appt with [facility] on 08/29 at 2pm. on thimaine/folate/MVI 3. RLL nodule- stable in size. requires periodic surveillance 4. CP- musculoskeletal from persistent cough. now resolved. cardiac enzymes neg x1. EKG negative. 5. DVT ppx- hep sq 6. d/c home vs [facility] for inpatient rehab
[2017-08-09] MEDS: ACETAMINOPHEN/CAFFEINE/BUTALBITAL 1 TAB PO PRN (13:30)
[2017-08-09 14:00] VITALS: BP 128/84; PULSE 70; TEMP 98.2
--- NOTE | 2017-08-09 14:57 | DS ---
Physical Exam: SUBJECTIVE: Patient seen and examined OBJECTIVE: Vital Signs Period Temp Pulse Resp BP Sys/Avila Pulse Ox Last 24 Hr 96.8 F-98.5 F 50-78 18-20 119-141/62-84 91-95 PHYSICAL EXAM GENERAL: The patient is awake, alert, and fully oriented, in no acute distress. HEAD: Normal with no signs of trauma. EYES: PERRL, extraocular movements intact, sclera anicteric, conjunctiva clear. ENT: Ears normal, nares patent, oropharynx clear without exudates, moist mucous membranes. NECK: Trachea midline, full range of motion, supple. LUNGS: Breath sounds equal, clear to auscultation bilaterally, no wheezes, no crackles, no accessory muscle use. HEART: Regular rate and rhythm, S1, S2 without murmur, rub or gallop. ABDOMEN: Soft, nontender, nondistended, normoactive bowel sounds, no guarding, no rebound, no hepatosplenomegaly, no masses. EXTREMITIES: 2+ pulses, warm, well-perfused, no edema. NEUROLOGICAL: Cranial nerves II through XII grossly intact. Normal speech, gait not observed. PSYCH: Normal mood, normal affect. SKIN: Warm, dry, normal turgor, no rashes or lesions noted. LABS HOSPITAL COURSE: Date of Admission:08/04/17 Date of Discharge: 08/09/17 Discharge Summary Reason For Visit: CHRONIC OBSTRUCTIVE PULMONARY DISEASE Current Active Problems COPD exacerbation (Acute) Alcohol dependence with uncomplicated withdrawal (Chronic) Asthma (Chronic) Condition: Stable - Instructions Diet, Activity, Other Instructions: RECOMMENDATIONS: You were hospitalized because you were withdrawing from alcohol and your asthma/ COPD was affecting your breathing Please refrain from drinking alcohol anymore at this can negatively affect your health If you feel short of breath or have increasing wheezing please call your doctor or seek medical attention at the nearest ER MEDICATION CHANGES: You will be given a decreasing dose of prednisone that you should follow exactly like the below instructions: /12 - 2 tablets in the morning (20mg) 1 - 2 tablets in the morning (20mg) 14 - 1 tablet in the morning (10mg) 1/15 - 1 tablet in the morning (10mg) 08/14 - STOP TAKING PREDNISONE (throw out any extra pills) This medication has been sent to [facility] for you to pickle sorter FOLLOW-UPs Please see your general medical doctor to follow with your health conditions --If you want to switch your medical doctor please feel free to call [phone] and schedule an appointment with Dr. Swann and Dr. Rao You will be given numbers to contact inpatient alcohol rehabilliation because you expressed interest in going through rehab --Call this number daily to see if they have an availability for you --If they do not have an availability, you have an appointment at [facility] on August 29 at 2pm to start inpatient rehabillitation. However, you should try to start as soon as possible as this will help from relapsing Referrals: Alexander Swann MD [Staff Physician] - Disposition: HOME - Home Medications Comprehensive Discharge Medication List: Ambulatory Orders Prednisone [Deltasone -] See Taper PO DAILY #9 tablet 08/08/17
[2017-08-09] MEDS: ALBUTEROL SO4 2.5/IPRATROPIUM 0.5 INH SOL 3 ML VIAL.NEB. NEB SCH (15:05)
== END 2017-08-09 16:29 | disposition home or self-care (01) | DRG 189 ==
LOC: JER 15:30 → JERBED 20:36 → J8W 08-05 01:29
PROVIDERS: ADMIT Internal Medicine; ATTEND Internal Medicine
DX: J96.01 Acute respiratory failure with hypoxia (principal); J44.1 Chronic obstructive pulmonary disease with (acute) exacerbation; F10.239 Alcohol dependence with withdrawal, unspecified; J45.21 Mild intermittent asthma with (acute) exacerbation; D72.1 Eosinophilia; E83.39 Other disorders of phosphorus metabolism; K70.30 Alcoholic cirrhosis of liver without ascites; K70.0 Alcoholic fatty liver; E83.42 Hypomagnesemia; R91.1 Solitary pulmonary nodule; Y90.0 Blood alcohol level of less than 20 mg/100 ml; Z87.891 Personal history of nicotine dependence; J06.9 Acute upper respiratory infection, unspecified; M94.0 Chondrocostal junction syndrome [Tietze]
CPT/HCPCS: 36415; 36600; 71045-TC; 71250-TC; 76705-TC; 80048; 80053; 80307; 81003; 82375; 82550; 82803; 83050; 83605; 83735; 83880; 84100; 84484; 85025; 85027; 85610; 85730; 87040; 87086; 87186; 87633; 87804; 93005; 93010; 94640; 94761; 97116-GP; 97161-GP; 99285-25; J1644

== ENCOUNTER 2017-08-14 12:15 | Inpatient (IN) | payer OTHER ==
[2017-08-14 13:44] LABS: BASO % 0.4 % (0-2.0); EOS % 0.4 % (0-4.5); HEMATOCRIT 44.4 % (35.4-49); HEMOGLOBIN 14.9 GM/dL (11.7-16.9); LYMPH % 5.5 % (8-40); MCH 31.2 pg (25.7-33.7); MCHC 33.6 g/dl (32.0-35.9); MEAN PLT VOLUME 8.7 fl (7.5-11.1); MONO % 11.9 % (3.8-10.2); NEUT % 81.8 % (42.8-82.8); PLATELET COUNT 166 K/MM3 (134-434); RBC 4.78 M/mm3 (4.00-5.60); RDW 13.9 % (11.9-15.9); WHITE BLOOD COUNT 9.4 K/mm3 (4.0-10.0)
--- NOTE | 2017-08-14 13:48 | PDOC ---
History of Present Illness - General History Source: Patient Exam Limitations: No Limitations - History of Present Illness Initial Comments: 08/14/17 14:35 The patient is a 61 year old male, with a significant past medical history of COPD and alcoholism, who presents to the emergency department with, productive cough, shortness of breath, sore throat and nausea for approx. 5 days since being d/c from hosptial. The patient reports the productive cough has been progressively worse and states he has vomited 1x secondary to a coughing episode. The patient reports he used a nebulizer treatment at home with minimal relief. The patient reports sick contacts at home with similar symptoms. The patient reports his last alcoholic drink was approx. 2 days ago. He denies any recent fevers, chills, headache or dizziness. He denies any recent , diarrhea or constipation. He denies any recent chest pain. He denies any recent dysuria, frequency, urgency or hematuria. No associated abdominal pain. Allergies: NKA <Ian Mortensen - Last Filed: 08/14/17 14:51> <Fracisco Pugh - Last Filed: 08/14/17 15:33> - General Chief Complaint: Cold Symptoms Stated Complaint: COUGH Time Seen by Provider: 08/14/17 12:49 Past History <Ian Mortensen - Last Filed: 08/14/17 14:51> - Past Medical History Anemia: No Asthma: Yes Cancer: No Cardiac Disorders: No CVA: No COPD: Yes CHF: No Dementia: No Diabetes: No GI Disorders: No Disorders: No HTN: No Hypercholesterolemia: No Kidney Stones: No Liver Disease: Yes (cirrhosis ) Seizures: No Thyroid Disease: No - Surgical History Abdominal Surgery: No Appendectomy: No Cardiac Surgery: No Cholecystectomy: No Lung Surgery: No Neurologic Surgery: No Orthopedic Surgery: Yes (laminectomy/Back and Left Shoulder) - Reproductive History Testicular Surgery: No - Immunization History Immunization Up to Date: Yes - Suicide/Smoking/Psychosocial Hx Smoking History: Never smoked Have you smoked in the past 12 months: No Number of Cigarettes Smoked Daily: 0 Cigars Per Day: 0 Information on smoking cessation initiated: No 'Breaking Loose' booklet given: 12/06/16 Hx Alcohol Use: No Drug/Substance Use Hx: No Substance Use Type: Alcohol Hx Substance Use Treatment: Yes <Fracisco Pugh - Last Filed: 08/14/17 15:33> - Past Medical History Allergies/Adverse Reactions: Allergies Allergy/AdvReac Type Severity Reaction Status Date / Time No Known Allergies Allergy Verified 08/14/17 12:27 Home Medications: Ambulatory Orders Albuterol 0.083% Nebulizer Taryn [Ventolin 0.083% Nebulizer Soln -] 1 neb NEB Q6H 08/14/17 Respiratory Specific PMHX - Complaint Specific PMHX TB (Tuberculosis): No <Fracisco Pugh - Last Filed: 08/14/17 15:33> Review of Systems - Review of Systems Comments:: 08/14/17 14:35 CONSTITUTIONAL: No reported: Fever, Chills, Diaphoresis, Generalized Weakness, Malaise, Loss of Appetite HEENT: Present: +Sore throat. +Rhinorrhea. +Nasal congestion. No reported: Swelling, Difficulty Swallowing, Mouth Swelling, Ear Pain, Eye Pain , Visual Changes CARDIOVASCULAR: No reported: Chest Pain, Syncope, Palpitations, Irregular Heart Rate, Lightheadedness, Peripheral Edema RESPIRATORY: Present: +Shortness of breath. +Productive cough. No reported: Orthopnea, Wheezing, Stridor, Hemoptysis GASTROINTESTINAL: Present: +Nausea. +Vomiting. No reported: Abdominal pain, Abdominal Distension, Diarrhea, Constipation, Melena, Hematochezia GENITOURINARY: No reported: Dysuria, Frequency, Urgency, Hesitancy, Flank Pain, Genital Pain MUSCULOSKELETAL: No reported: Myalgia, Arthralgia, Joint Swelling, Back pain, Neck Pain SKIN: No reported: Rash, Itching, Pallor HEMEATOLOGIC/IMMUNOLOGIC: No reported: Easy Bleeding, Easy Bruising, Lymphadenopathy, Frequent infections ENDOCRINE: No reported: Unexplained Weight Gain, Unexplained Weight Loss, Heat Intolerance , Cold Intolerance NEUROLOGIC: No reported: Headache, Focal Weakness, Paresthesias, Vertigo, Lightheadedness, Unsteady Gait, Seizure, Mental Status Changes, Incontinence PSYCHIATRIC: No reported: Anxiety, Depression <Ian Mortensen - Last Filed: 08/14/17 14:51> *Physical Exam - Vital Signs Last Vital Signs Temp Pulse Resp BP Pulse Ox 99.2 F 115 H 18 139/78 95 08/14/17 12:27 08/14/17 12:27 08/14/17 12:27 08/14/17 12:27 08/14/17 13:15 - Physical Exam Comments: 08/14/17 14:35 GENERAL: The patient is awake, alert, and fully oriented, tremulousHEAD: Normocephalic, atraumatic. EYES: extraocular movements intact, sclera anicteric, conjunctiva clear. ENT: Normal voice, Moist mucous membranes. NECK: Normal range of motion, supple LUNGS: mild diffuse wheezing, no rales appreciated, no acute respiratory distress but ahs intermittent paroxsms of coughing. HEART: tachycardic,ABDOMEN: Soft, nontender, normoactive bowel sounds. No guarding, no rebound. . No CVA tenderness EXTREMITIES: Normal range of motion, no edema. No clubbing or cyanosis. No cords, erythema, or tenderness. NEUROLOGICAL: No facial assymetry, Normal speech, PSYCH: Normal mood, normal affect. SKIN: Warm, Dry, normal turgor, <Ian Mortensen - Last Filed: 08/14/17 14:51> - Vital Signs Last Vital Signs Temp Pulse Resp BP Pulse Ox 99.2 F 115 H 18 139/78 95 08/14/17 12:27 08/14/17 12:27 08/14/17 12:27 08/14/17 12:27 08/14/17 13:15 <Fracisco Pugh - Last Filed: 08/14/17 15:33> Heart Score/ECG Review - ECG Impressions Comment:: 08/14/17 15:33 Twelve-lead EKG was performed and reviewed by me. There is normal sinus rhythm with a rate of 112 The axis is normal. The intervals are normal. There is normal R wave progression There are no ST or T wave abnormalities. Impression: Sinus tachycardia <Fracisco Pugh - Last Filed: 08/14/17 15:33> ED Treatment Course - LABORATORY CBC & Chemistry Diagram: 08/14/17 13:35 08/14/17 13:15 - ADDITIONAL ORDERS Additional order review: Laboratory Results 08/14/17 13:15 Sodium 138 Potassium 4.2 Chloride 105 Carbon Dioxide 22 Anion Gap 11 BUN 10 Creatinine 1.1 D Creat Clearance w eGFR > 60 Random Glucose 106 D Calcium 8.8 Total Bilirubin 0.9 AST 32 D ALT 47 D Alkaline Phosphatase 99 D Total Protein 7.9 D Albumin 3.8 D 08/14/17 13:35 Influenza Types A,B Antigen (JE) - Final Nasopharyngeal Swab - Final 08/14/17 13:35 RBC 4.78 MCV 93.0 MCHC 33.6 RDW 13.9 MPV 8.7 Neutrophils % 81.8 Lymphocytes % 5.5 L D Monocytes % 11.9 H D Eosinophils % 0.4 Basophils % 0.4 - RADIOLOGY Radiograph Interpretation: 08/14/17 14:49 EXAM#: TYPE/EXAM: RESULT: [id number] RAD/CHEST - PA Chest: Pneumonia A single apical lordotic view reveals clear lungs, normal mediastinum and sharp angles. Soft tissues are intact. An acute chest process is not seen. There is a slightly widened left AC joint which may be postsurgical in nature there is a deformity of the anterior aspect of the left sixth rib which may be due to old trauma. Impression: No acute chest pathology. No significant change since 08/04/2017. Reported By: Hitesh Rodriguez MD 08/14/17 14:51 EXAM#: TYPE/EXAM: RESULT: [id number] CT/HEAD CT WITHOUT CONTRAST EXAM: CT head without contrast. INDICATION: Head injury. TECHNIQUE: Axial noncontrast head CT with coronal and sagittal reformations. COMPARISON: 04/12/[address] FINDINGS: There is no acute intracranial hemorrhage or focal extra-axial collection. No compelling evidence of acute transcortical infarction at this time. MRI is more sensitive in detecting acute infarction. There is generalized, age-related volume loss with secondary prominence of the CSF spaces, similar to the prior head CT. There is no mass effect, midline shift or hydrocephalus. There is dense calcific atherosclerosis along the cavernous and supraclinoid segments of the internal carotid arteries. The calvarium is intact. There is mucosal thickening with partial opacification of bilateral ethmoid air cells. Hyperdense contents within bilateral ethmoid air cells may be chronic inspissated secretions. There is also mild to moderate mucosal thickening within bilateral maxillary sinuses and mild mucosal thickening within bilateral sphenoid sinuses. There is a rounded polyp versus hyperdense retention cyst in the right maxillary sinus with proteinaceous contents. The visualized mastoid air cells are clear. IMPRESSION: No definite interval change from 04/12/[address] No acute intracranial hemorrhage or acute skull fracture. No mass effect, midline shift or hydrocephalus. Reported By: Mirela Arguelles DO - Medications Given in the ED: ED Medications Discontinued Medications Generic Name Dose Route Start Last Admin Trade Name Mala PRN Reason Stop Dose Admin Albuterol/Ipratropium 1 amp 08/14/17 13:59 08/14/17 14:09 Duoneb - NEB 08/14/17 14:00 1 amp ONCE ONE Administration Chlordiazepoxide HCl 50 mg 08/14/17 13:52 08/14/17 14:09 Librium - PO 08/14/17 13:53 50 mg ONCE ONE Administration <Ian Mortensen - Last Filed: 08/14/17 14:51> - LABORATORY CBC & Chemistry Diagram: 08/14/17 13:35 08/14/17 13:15 - RADIOLOGY Radiology Studies Ordered: Category Date Time Status HEAD CT WITHOUT CONTRAST [CT] Stat CT Scan 08/14/17 13:29 Ordered CHEST - PA [RAD] Stat Radiology 08/14/17 13:14 Taken <Fracisco Pugh - Last Filed: 08/14/17 15:33> Medical Decision Making - Medical Decision Making 08/14/17 13:47 61y M hx of COPD, ETOH abuse, presents with complaint of productive cough/sob. cough started after d/c from hospital, sob not improved with nebs.+sickcontacts at home associated sore throat, no fever/chills. on exam pt is mildly dyspneic speaking short stences due to his paroxysms of coughs wheezing/rales b/l 08/14/17 15:31 pts influenza A + cxr no pna labs unremarkble will start librium will admit to [facility] [place] for futher management case dw dr. nesbitt, agree with management and admission Case discussed in detail with admitting physician including history, physical exam and ancillary studies. Admitting physician has assumed care for the patient, will follow all pending diagnostics and will complete the evaluation and treatment. A portion of this note was documented by scribe services under my direction. I have reviewed the details of the note, within reason, and agree with the documentation with the following case summary and management plan written by me <Fracisco Pugh - Last Filed: 08/14/17 15:33> *DC/Admit/Observation/Transfer - Attestations Scribe Attestion: 08/14/17 14:36 Documentation prepared by Ian Mortensen, acting as director of medical review for Fracisco Pugh MD. <Ian Mortensen - Last Filed: 08/14/17 14:51> - Discharge Dispostion Admit: Yes <Fracisco Pugh - Last Filed: 08/14/17 15:33> Diagnosis at time of Disposition: Influenza A Alcohol withdrawal Qualifiers: Complication of substance-induced condition: uncomplicated Qualified Code(s): F10.230 - Alcohol dependence with withdrawal, uncomplicated COPD (chronic obstructive pulmonary disease) Qualifiers: COPD type: COPD with acute exacerbation Qualified Code(s): J44.1 - Chronic obstructive pulmonary disease with (acute) exacerbation - Discharge Dispostion Condition at time of disposition: Guarded
[2017-08-14] MEDS ORDERED: chlordiazePOXIDE HCL 25 MG CAPSULE PO ONE (13:52)
[2017-08-14] MEDS ORDERED: ALBUTEROL SO4 2.5/IPRATROPIUM 0.5 INH SOL 3 ML VIAL.NEB. NEB ONE ×4 (13:59→17:33)
[2017-08-14 14:03] LABS: ALBUMIN 3.8 g/dl (3.4-5.0); ANION GAP 11 (8-16); BLOOD UREA NITROGEN 10 mg/dL (7-18); CALCIUM 8.8 mg/dL (8.5-10.1); CHLORIDE 105 mmol/L (98-107); CO2 22 mmol/L (21-32); CREATININE 1.1 mg/dL (0.7-1.3); GLUCOSE,RANDOM 106 mg/dL (74-106); POTASSIUM 4.2 mmol/L (3.5-5.1); SGOT/AST 32 U/L (15-37); SGPT/ALT 47 U/L (12-78); SODIUM 138 mmol/L (136-145)
[2017-08-14] MEDS ORDERED: chlordiazePOXIDE HCL 25 MG CAPSULE ONE ×2 (14:03→23:14)
[2017-08-14] MEDS ORDERED: SODIUM CHLORIDE 1,000 ML IV ONE (14:04)
[2017-08-14 14:05] LABS: ALK PHOS 99 U/L (45-117); BILIRUBIN,TOTAL 0.9 mg/dL (0.2-1.0); TOT PROT 7.9 g/dl (6.4-8.2)
[2017-08-14] MEDS: ACETAMINOPHEN 325 MG TABLET (FP) PO ONE (15:31)
[2017-08-14] MEDS ORDERED: ACETAMINOPHEN 325 MG TABLET (FP) ONE ×2 (15:32→20:16)
--- NOTE | 2017-08-14 15:51 | HP ---
Admitting History and Physical - Admission Chief Complaint: coughing since yesterday History of Present Illness: The patient is a 61 year old male, with a significant past medical history of COPD and alcoholism, who presents to the emergency department with, productive cough, shortness of breath, sore throat and nausea for approx. 5 days since being d/c from hosptial. The patient reports the productive cough has been progressively worse and states he has vomited 1x secondary to a coughing episode. The patient reports he used a nebulizer treatment at home with minimal relief. The patient reports sick contacts at home with similar symptoms. The patient reports his last alcoholic drink was approx. 2 days ago. He denies any recent fevers, chills, headache or dizziness. He denies any recent , diarrhea or constipation. He denies any recent chest pain. He denies any recent dysuria, frequency, urgency or hematuria. No associated abdominal pain. Allergies: NKA History Source: Patient - Past Medical History Pulmonary: Yes: COPD Additional Past Medical History: alcoholism - Smoking History Smoking history: Never smoked Have you smoked in the past 12 months: No Aproximately how many cigarettes per day: 0 - Alcohol/Substance Use Hx Alcohol Use: No Home Medications - Allergies Allergies/Adverse Reactions: Allergies Allergy/AdvReac Type Severity Reaction Status Date / Time No Known Allergies Allergy Verified 08/14/17 12:27 - Home Medications Home Medications: Ambulatory Orders Albuterol 0.083% Nebulizer Taryn [Ventolin 0.083% Nebulizer Soln -] 1 neb NEB Q6H 08/14/17 Family Disease History - Family Disease History Family Disease History: CA: Mother (BREAST CA. AND ), Other: Father (ETOH DEPENDENT AND ) Review of Systems - Review of Systems Respiratory: reports: Cough, SOB Physical Examination Vital Signs: Vital Signs Temperature 99.2 F 08/14/17 12:27 Pulse Rate 115 H 08/14/17 12:27 Respiratory Rate 18 08/14/17 12:27 Blood Pressure 139/78 08/14/17 12:27 O2 Sat by Pulse Oximetry (%) 95 08/14/17 13:15 Constitutional: Yes: Calm HENT: Yes: Other (abrasion above left eyebrow) Cardiovascular: Yes: Tachycardia, S1, S2 Respiratory: Yes: Rhonchi, Wheezes Gastrointestinal: Yes: Normal Bowel Sounds, Soft Edema: No Labs: CBC, BMP 08/14/17 13:35 08/14/17 13:15 Problem List - Problems (1) Influenza A Assessment/Plan: resp isolatiojn tamiflu Code(s): J10.1 - FLU DUE TO OTH IDENT INFLUENZA VIRUS W OTH RESP MANIFEST (2) COPD (chronic obstructive pulmonary disease) Assessment/Plan: nebulizer pulm Code(s): J44.9 - CHRONIC OBSTRUCTIVE PULMONARY DISEASE, UNSPECIFIED Qualifiers: COPD type: COPD with acute exacerbation Qualified Code(s): J44.1 - Chronic obstructive pulmonary disease with (acute) exacerbation (3) Alcohol withdrawal Assessment/Plan: librium detox eval Code(s): F10.239 - ALCOHOL DEPENDENCE WITH WITHDRAWAL, UNSPECIFIED Qualifiers: Complication of substance-induced condition: uncomplicated Qualified Code(s ): F10.230 - Alcohol dependence with withdrawal, uncomplicated
--- NOTE | 2017-08-14 16:23 | PN ---
Progress Note (short form) - Note Progress Note: ID consult dictated imp/reccd influenza A copd etoh use continue tamiflu no signs pneumonia droplet isolation Problem List - Problems (1) Influenza A Code(s): J10.1 - FLU DUE TO OTH IDENT INFLUENZA VIRUS W OTH RESP MANIFEST (2) COPD (chronic obstructive pulmonary disease) Code(s): J44.9 - CHRONIC OBSTRUCTIVE PULMONARY DISEASE, UNSPECIFIED Qualifiers: COPD type: COPD with acute exacerbation Qualified Code(s): J44.1 - Chronic obstructive pulmonary disease with (acute) exacerbation (3) Alcohol dependence with uncomplicated withdrawal Code(s): F10.230 - ALCOHOL DEPENDENCE WITH WITHDRAWAL, UNCOMPLICATED
[2017-08-14] MEDS: chlordiazePOXIDE HCL 25 MG CAPSULE PO SCH ×2 (17:03→23:17)
[2017-08-14] MEDS ORDERED: chlordiazePOXIDE 5 MG CAPSULE ONE (17:04)
--- NOTE | 2017-08-14 17:04 | CONS ---
INFECTIOUS DISEASE CONSULTATION DATE OF CONSULTATION: 08/14/2017 REQUESTING PHYSICIAN: Yusra Barrera MD HISTORY OF PRESENT ILLNESS: This is a 61-year-old man with a history of COPD, liver cirrhosis, alcohol use, admitted with shortness of breath. He was found in the emergency room to have a low O2 saturation. He was treated with prednisone and DuoNebs with improvement. This was all back on July 04. He stayed in the hospital until the . He was treated for alcohol withdrawal as well. He was discharged on a prednisone taper. He reports that he after discharge his cough worsened. He lives in a place with there is a lot of second-hand smoke and where he has multiple sick contacts. Everybody was coughing and feeling sick. He returned with complaints of subjective shortness of breath and was found to be positive for influenza A. Chest x-ray was done and was normal. He is currently resting comfortably. He denies any fevers or chills. He sometimes coughs until he vomits but has not done that recently. He has no diarrhea or dysuria. It is unclear whether he took his prednisone after discharge. He did not follow up with any physicians. He has been drinking wine. PAST MEDICAL HISTORY: Notable for history of asthma, COPD, alcohol abuse, liver cirrhosis, chronic back pain. SURGICAL HISTORY: He had back surgery for a herniated disk. SOCIAL HISTORY: He quit smoking 5 years ago. He is still exposed to secondhand smoke. He is an everyday drinker and beer and wine. There is no history of any drug use. FAMILY HISTORY: Notable for breast cancer in his mother, colon cancer in his father. ALLERGIES: He has no known drug allergies. It is unclear if he was taking his prednisone. REVIEW OF SYSTEMS: As per HPI. PHYSICAL EXAMINATION: Vital Signs: His T-max is 99.2, pulse is 115, blood pressure 139/78. Respiratory rate is 18. He is saturating 95% on room air. HEENT: He is normocephalic. His eyes are anicteric. He has no pharyngitis or thrush. Neck: Supple. Lungs: Clear to auscultation. Heart: Regular rate and rhythm. Extremities: Without edema. LABORATORY DATA: Notable for a white count of 9.4, hemoglobin 14.9, platelets are 166. INR is 1.13. BUN and creatinine are normal. Liver function tests are normal. His influenza screen is positive for influenza A. Chest x-ray is negative for any acute infiltrate. As well, he gives a history of 2 days ago tripping and falling and hitting his head; so, a head CT was done in the emergency room, that shows no acute intracranial process. In summary, this is a 61-year-old man with influenza A, chronic obstructive pulmonary disease, alcohol use. Would continue Tamiflu. He has no signs of pneumonia. Would droplet isolation. He is being treated for his alcohol use and is on a Librium taper. MOY VIERA M.D. [id number]
[2017-08-14] MEDS: ACETAMINOPHEN 325 MG TABLET (FP) PO PRN (20:16)
[2017-08-14] MEDS ORDERED: OSELTAMIVIR PHOSPHATE 75 MG CAPSULE ONE (22:04)
[2017-08-14] MEDS: OSELTAMIVIR PHOSPHATE 75 MG CAPSULE PO SCH (22:08)
[2017-08-14] MEDS ORDERED: ACETAMINOPHEN 1000 MG/100 ML VIAL (NON FORMULARY) IVPB ONE (23:51)
[2017-08-14] MEDS ORDERED: ACETAMINOPHEN INJECTION 100 ML IVPB ONE (23:53)
[2017-08-15] MEDS ORDERED: ALBUTEROL SO4 0.083% IH SOL 2.5 MG/3 ML VIAL.NEB. NEB ONE (00:40)
[2017-08-15] MEDS: ALBUTEROL SO4 0.083% IH SOL 2.5 MG/3 ML VIAL.NEB. NEB PRN ×4 (00:51→23:33)
[2017-08-15] MEDS ORDERED: chlordiazePOXIDE HCL 25 MG CAPSULE ONE ×3 (05:24→18:45)
[2017-08-15] MEDS: chlordiazePOXIDE HCL 25 MG CAPSULE PO SCH ×4 (05:30→23:14)
[2017-08-15] MEDS: ACETAMINOPHEN 325 MG TABLET (FP) PO PRN ×2 (07:43→20:31)
[2017-08-15] MEDS ORDERED: ACETAMINOPHEN 325 MG TABLET (FP) ONE (07:47)
[2017-08-15 07:50] LABS: BASO % 0.5 % (0-2.0); EOS % 0.3 % (0-4.5); HEMATOCRIT 42.9 % (35.4-49); HEMOGLOBIN 14.2 GM/dL (11.7-16.9); LYMPH % 7.7 % (8-40); MCH 31.2 pg (25.7-33.7); MCHC 33.1 g/dl (32.0-35.9); MEAN CELL VOLUME 94.2 fl (80-96); MONO % 9.9 % (3.8-10.2); NEUT % 81.6 % (42.8-82.8); PLATELET COUNT 129 K/MM3 (134-434); RBC 4.55 M/mm3 (4.00-5.60); RDW 14.1 % (11.9-15.9); WHITE BLOOD COUNT 8.2 K/mm3 (4.0-10.0)
[2017-08-15] MEDS ORDERED: FOLIC ACID 1 MG TABLET (FP) ONE (08:18)
[2017-08-15] MEDS: FOLIC ACID 1 MG TABLET (FP) PO SCH (08:19)
[2017-08-15 08:24] LABS: ALBUMIN 3.3 g/dl (3.4-5.0); ALK PHOS 88 U/L (45-117); ANION GAP 9 (8-16); BILIRUBIN,TOTAL 0.9 mg/dL (0.2-1.0); BLOOD UREA NITROGEN 10 mg/dL (7-18); CALCIUM 8.1 mg/dL (8.5-10.1); CHLORIDE 103 mmol/L (98-107); CO2 25 mmol/L (21-32); GLUCOSE,RANDOM 112 mg/dL (74-106); PHOSPHOROUS 2.1 mg/dL (2.5-4.9); POTASSIUM 4.1 mmol/L (3.5-5.1); SGOT/AST 39 U/L (15-37); SGPT/ALT 44 U/L (12-78); SODIUM 137 mmol/L (136-145)
[2017-08-15] MEDS ORDERED: OSELTAMIVIR PHOSPHATE 75 MG CAPSULE ONE (09:29)
[2017-08-15] MEDS: THIAMINE HCL 100 MG TABLET (FP) PO SCH ×2 (09:33→11:18)
[2017-08-15] MEDS: OSELTAMIVIR PHOSPHATE 75 MG CAPSULE PO SCH ×2 (09:34→23:15)
--- NOTE | 2017-08-15 10:46 | EKG ---
Test Reason : Blood Pressure : / mmHG Vent. Rate : 112 BPM Atrial Rate : 112 BPM P-R Int : 116 ms QRS Dur : 084 ms QT Int : 316 ms P-R-T Axes : 051 042 017 degrees QTc Int : 431 ms SINUS TACHYCARDIA OTHERWISE NORMAL ECG WHEN COMPARED WITH ECG OF 07-AUG-2017 08:13, VENT. RATE HAS INCREASED BY 60 BPM QRS DURATION HAS DECREASED Confirmed by ANNE REYES, ÁNGELA ([id number]) on 08/15/2017 10:46:08 AM Referred By: Confirmed By:ÁNGELA RODRÍGUEZ MD
--- NOTE | 2017-08-15 11:05 | PN ---
Progress Note, Physician - Current Medication List Current Medications: Active Medications Acetaminophen (Tylenol -) 650 mg PO Q6HPO PRN PRN Reason: FEVER Last Admin: 08/15/17 07:43 Dose: 650 mg Albuterol Sulfate (Ventolin 0.083% Nebulizer Soln -) 1 amp NEB Q6H PRN PRN Reason: SHORT OF BREATH/WHEEZING Last Admin: 08/15/17 07:42 Dose: 1 amp Chlordiazepoxide HCl (Librium -) 50 mg PO Q6H [facility] Last Admin: 08/15/17 05:30 Dose: 50 mg Folic Acid (Folic Acid -) 1 mg PO DAILY@0800 [facility] Last Admin: 08/15/17 08:19 Dose: 1 mg Oseltamivir Phosphate (Tamiflu -) 75 mg PO BID [facility] Stop: 08/19/17 21:59 Last Admin: 08/15/17 09:34 Dose: 75 mg Thiamine HCl (Vitamin B1 -) 100 mg PO DAILY [facility] Last Admin: 08/15/17 09:33 Dose: Not Given - Objective Vital Signs: Vital Signs Temperature 101.6 F H 08/15/17 09:00 Pulse Rate 86 08/15/17 09:00 Respiratory Rate 20 08/15/17 09:00 Blood Pressure 111/65 08/15/17 09:00 O2 Sat by Pulse Oximetry (%) 95 08/15/17 09:00 Labs: CBC, BMP 08/15/17 07:36 08/15/17 07:36 Assessment/Plan - Problems (1) Influenza A Assessment/Plan: resp isolatiojn tamiflu id consult Code(s): J10.1 - FLU DUE TO OTH IDENT INFLUENZA VIRUS W OTH RESP MANIFEST (2) COPD (chronic obstructive pulmonary disease) Assessment/Plan: nebulizer pulm Code(s): J44.9 - CHRONIC OBSTRUCTIVE PULMONARY DISEASE, UNSPECIFIED Qualifiers: COPD type: COPD with acute exacerbation Qualified Code(s): J44.1 - Chronic obstructive pulmonary disease with (acute) exacerbation (3) Alcohol withdrawal Assessment/Plan: librium detox eval Code(s): F10.239 - ALCOHOL DEPENDENCE WITH WITHDRAWAL, UNSPECIFIED Qualifiers: Complication of substance-induced condition: uncomplicated Qualified Code(s ): F10.230 - Alcohol dependence with withdrawal, uncomplicated (4) Fever Assessment/Plan: due to flu bc cxr monitor id on board
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
--- NOTE | 2017-08-15 17:04 | PN ---
Progress Note (short form) - Note Progress Note: still febrile and coughing Vital Signs Period Temp Pulse Resp BP Sys/Avila Pulse Ox Last 24 Hr 100 F-102.7 F 85-97 16-22 110-136/65-84 95-97 cor-rrr lungs bilateral rhonchi abd- soft,nt ext no edema CBC, BMP 08/15/17 07:36 08/15/17 07:36 Microbiology 08/14/17 13:35 Influenza Types A,B Antigen (JE) - Final Nasopharyngeal Swab - Final cxray no infiltrate imp/reccd influenza A copd etoh use continue tamiflu no signs pneumonia droplet isolation Problem List - Problems (1) Influenza A Code(s): J10.1 - FLU DUE TO OTH IDENT INFLUENZA VIRUS W OTH RESP MANIFEST (2) COPD (chronic obstructive pulmonary disease) Code(s): J44.9 - CHRONIC OBSTRUCTIVE PULMONARY DISEASE, UNSPECIFIED Qualifiers: COPD type: COPD with acute exacerbation Qualified Code(s): J44.1 - Chronic obstructive pulmonary disease with (acute) exacerbation (3) Alcohol dependence with uncomplicated withdrawal Code(s): F10.230 - ALCOHOL DEPENDENCE WITH WITHDRAWAL, UNCOMPLICATED
[2017-08-15 20:21] VITALS: BMI 29.7
[2017-08-16] MEDS: chlordiazePOXIDE HCL 25 MG CAPSULE PO SCH ×4 (05:45→22:18)
[2017-08-16] MEDS: ALBUTEROL SO4 0.083% IH SOL 2.5 MG/3 ML VIAL.NEB. NEB PRN ×4 (06:05→21:52)
--- NOTE | 2017-08-16 09:22 | PN ---
Progress Note (short form) - Note Progress Note: Still with congested cough and generalized malaise. No hemoptysis. Requesting cough syrup. Intake & Output 08/13/17 08/14/17 08/15/17 08/16/17 23:59 23:59 23:59 23:59 Output Total 600 800 Balance -600 -800 Weight 200 lb 219 lb 5 oz Last Vital Signs Temp Pulse Resp BP Pulse Ox 97.6 F 73 22 121/67 95 08/16/17 06:58 08/16/17 06:58 08/16/17 06:58 08/16/17 06:58 08/15/17 21:00 Active Medications Acetaminophen (Tylenol -) 650 mg PO Q6HPO PRN PRN Reason: FEVER Last Admin: 08/15/17 20:31 Dose: 650 mg Albuterol Sulfate (Ventolin 0.083% Nebulizer Soln -) 1 amp NEB Q6H PRN PRN Reason: SHORT OF BREATH/WHEEZING Last Admin: 08/16/17 06:05 Dose: 1 amp Chlordiazepoxide HCl (Librium -) 50 mg PO Q6H [facility] Last Admin: 08/16/17 05:45 Dose: 50 mg Folic Acid (Folic Acid -) 1 mg PO DAILY@0800 [facility] Last Admin: 08/15/17 08:19 Dose: 1 mg Guaifenesin (Robitussin -) 10 ml PO Q4H PRN PRN Reason: COUGH Oseltamivir Phosphate (Tamiflu -) 75 mg PO BID [facility] Stop: 08/19/17 21:59 Last Admin: 08/15/17 23:15 Dose: 75 mg Thiamine HCl (Vitamin B1 -) 100 mg PO DAILY [facility] Last Admin: 08/15/17 11:18 Dose: 100 mg Constitutional: Yes: Drowsy, NAD Eyes: Yes: EOM Intact HENT: Yes: Atraumatic Neck: Yes: Trachea Midline Cardiovascular: Yes: Regular Rate and Rhythm, S1, S2 Respiratory: Yes: scattered rhonchi Gastrointestinal: Yes: Soft Edema: No Neurological: Yes: drowsy, no Tremors Labs: Problem List - Problems (1) Alcohol withdrawal Code(s): F10.239 - ALCOHOL DEPENDENCE WITH WITHDRAWAL, UNSPECIFIED Qualifiers: Complication of substance-induced condition: uncomplicated Qualified Code(s ): F10.230 - Alcohol dependence with withdrawal, uncomplicated (2) Influenza A Code(s): J10.1 - FLU DUE TO OTH IDENT INFLUENZA VIRUS W OTH RESP MANIFEST (3) COPD (chronic obstructive pulmonary disease) Code(s): J44.9 - CHRONIC OBSTRUCTIVE PULMONARY DISEASE, UNSPECIFIED Qualifiers: COPD type: COPD with acute exacerbation Qualified Code(s): J44.1 - Chronic obstructive pulmonary disease with (acute) exacerbation (4) Anxiety Code(s): F41.9 - ANXIETY DISORDER, UNSPECIFIED Assessment/Plan Tamiflu O2 as needed Droplet precautions Cough syrup PRN Noted ETOH withdrawal protocol ordered Dr Vallecillo
[2017-08-16] MEDS: THIAMINE HCL 100 MG TABLET (FP) PO SCH ×2 (10:37→22:18)
[2017-08-16] MEDS: ACETAMINOPHEN 325 MG TABLET (FP) PO PRN ×2 (10:37→22:23)
[2017-08-16] MEDS: OSELTAMIVIR PHOSPHATE 75 MG CAPSULE PO SCH ×2 (10:37→22:18)
[2017-08-16] MEDS: FOLIC ACID 1 MG TABLET (FP) PO SCH (10:37)
[2017-08-16] MEDS: guaiFENesin 200 MG/10 ML 10 ML UNIT-DOSE CUPS PO PRN ×2 (10:38→22:23)
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
[2017-08-16] MEDS ORDERED: ZOLPIDEM TARTRATE 5 MG TABLET PO PRN (15:39)
[2017-08-16] MEDS ORDERED: chlordiazePOXIDE HCL 25 MG CAPSULE PO PRN (15:40)
--- NOTE | 2017-08-16 17:01 | PN ---
Progress Note, Physician Chief Complaint: on roseanne flu says his cough slightly better today - Current Medication List Current Medications: Active Medications Acetaminophen (Tylenol -) 650 mg PO Q6HPO PRN PRN Reason: FEVER Last Admin: 08/16/17 10:37 Dose: 650 mg Albuterol Sulfate (Ventolin 0.083% Nebulizer Soln -) 1 amp NEB Q6H PRN PRN Reason: SHORT OF BREATH/WHEEZING Last Admin: 08/16/17 08:55 Dose: 1 amp Chlordiazepoxide HCl (Librium -) 25 mg PO [id number] [facility] Stop: 08/17/17 11:01 Chlordiazepoxide HCl (Librium -) 15 mg PO [id number] [facility] Stop: 08/18/17 11:01 Chlordiazepoxide HCl (Librium -) 25 mg PO Q4H PRN PRN Reason: WITHDRAWAL(CONT SUBST) Stop: 08/19/17 15:39 Guaifenesin (Robitussin -) 10 ml PO Q4H PRN PRN Reason: COUGH Last Admin: 08/16/17 10:38 Dose: 10 ml Oseltamivir Phosphate (Tamiflu -) 75 mg PO BID [facility] Stop: 08/19/17 21:59 Last Admin: 08/16/17 10:37 Dose: 75 mg Multivit/Folic Acid/Iron ( Vitamins (Sjr) -) 1 tab PO DAILY [facility] Thiamine HCl (Vitamin B1 -) 100 mg PO HS NESSA Zolpidem Tartrate (Ambien -) 10 mg PO HS PRN PRN Reason: INSOMNIA - Objective Vital Signs: Vital Signs Temperature 99.2 F 08/16/17 15:22 Pulse Rate 90 08/16/17 15:22 Respiratory Rate 16 08/16/17 15:22 Blood Pressure 110/70 08/16/17 15:22 O2 Sat by Pulse Oximetry (%) 97 08/16/17 09:00 Cardiovascular: Yes: Regular Rate and Rhythm, S1, S2 Respiratory: Yes: Rhonchi Gastrointestinal: Yes: Normal Bowel Sounds, Soft Edema: No Neurological: Yes: Alert, Oriented Labs: CBC, BMP 08/15/17 07:36 08/15/17 07:36 Problem List - Problems (1) Influenza A Assessment/Plan: resp isolatiojn tamiflu Code(s): J10.1 - FLU DUE TO OTH IDENT INFLUENZA VIRUS W OTH RESP MANIFEST (2) COPD (chronic obstructive pulmonary disease) Assessment/Plan: nebulizer pulm on board bronchodilatrs Code(s): J44.9 - CHRONIC OBSTRUCTIVE PULMONARY DISEASE, UNSPECIFIED Qualifiers: COPD type: COPD with acute exacerbation Qualified Code(s): J44.1 - Chronic obstructive pulmonary disease with (acute) exacerbation (3) Alcohol withdrawal Assessment/Plan: librium protocol thiamine, folate/ vitamins detox eval noted plan for inpatient rehab once ready for discharge to go to [facility] pending insurance Code(s): F10.239 - ALCOHOL DEPENDENCE WITH WITHDRAWAL, UNSPECIFIED Qualifiers: Complication of substance-induced condition: uncomplicated Qualified Code(s ): F10.230 - Alcohol dependence with withdrawal, uncomplicated (4) Insomnia Assessment/Plan: ambien Code(s): G47.00 - INSOMNIA, UNSPECIFIED
[2017-08-17] MEDS: ALBUTEROL SO4 0.083% IH SOL 2.5 MG/3 ML VIAL.NEB. NEB PRN ×4 (03:57→21:31)
[2017-08-17] MEDS: chlordiazePOXIDE HCL 25 MG CAPSULE PO SCH ×2 (06:19→10:16)
[2017-08-17 08:25] LABS: COCAINE, UR NEGATIVE ng/ml (CUTOFF=300); METHADONE, UR NEGATIVE ng/ml (CUTOFF=300); OPIATES, URI NEGATIVE ng/ml (CUTOFF=300); PHENCYCLIDINE,URINE NEGATIVE ng/ml (CUTOFF=25); URINE AMPHETAMINES NEGATIVE ng/ml (CUTOFF=500)
[2017-08-17 09:16] LABS: URINE BARBITURATES POSITIVE ng/ml (CUTOFF=200); URINE BENZODIAZEPINES POSITIVE ng/ml (CUTOFF=200)
[2017-08-17] MEDS ORDERED: PT OWN MED DRAWER 7, Y5N ONE ×2 (10:10)
[2017-08-17] MEDS: OSELTAMIVIR PHOSPHATE 75 MG CAPSULE PO SCH ×2 (10:16→21:30)
[2017-08-17] MEDS: guaiFENesin 200 MG/10 ML 10 ML UNIT-DOSE CUPS PO PRN (10:17)
--- NOTE | 2017-08-17 11:25 | PN ---
Progress Note (short form) - Note Progress Note: PULMONARY SUBJECTIVE IMPROVEMENT CHART REVIEWED VSS/AFEBRILE ANICTERIC DIMINISHED BREATH SOUNDS B/L S1S2 RSR BS+ NO EDEMA LABS/MEDS/NOTES/IMAGES REVIEWED (1) Alcohol withdrawal Code(s): F10.239 - ALCOHOL DEPENDENCE WITH WITHDRAWAL, UNSPECIFIED Qualifiers: Complication of substance-induced condition: uncomplicated Qualified Code(s ): F10.230 - Alcohol dependence with withdrawal, uncomplicated (2) Influenza A Code(s): J10.1 - FLU DUE TO OTH IDENT INFLUENZA VIRUS W OTH RESP MANIFEST (3) COPD (chronic obstructive pulmonary disease) Code(s): J44.9 - CHRONIC OBSTRUCTIVE PULMONARY DISEASE, UNSPECIFIED Qualifiers: COPD type: COPD with acute exacerbation Qualified Code(s): J44.1 - Chronic obstructive pulmonary disease with (acute) exacerbation (4) Anxiety Code(s): F41.9 - ANXIETY DISORDER, UNSPECIFIED O2/BRONCHODILATORS/TAMIFLU Tristan WHITE MD Problem List - Problems (1) Alcohol withdrawal Code(s): F10.239 - ALCOHOL DEPENDENCE WITH WITHDRAWAL, UNSPECIFIED Qualifiers: Complication of substance-induced condition: uncomplicated Qualified Code(s ): F10.230 - Alcohol dependence with withdrawal, uncomplicated (2) Influenza A Code(s): J10.1 - FLU DUE TO OTH IDENT INFLUENZA VIRUS W OTH RESP MANIFEST (3) COPD (chronic obstructive pulmonary disease) Code(s): J44.9 - CHRONIC OBSTRUCTIVE PULMONARY DISEASE, UNSPECIFIED Qualifiers: COPD type: COPD with acute exacerbation Qualified Code(s): J44.1 - Chronic obstructive pulmonary disease with (acute) exacerbation (4) Anxiety Code(s): F41.9 - ANXIETY DISORDER, UNSPECIFIED
--- NOTE | 2017-08-17 11:41 | PN ---
Progress Note, Physician - Current Medication List Current Medications: Active Medications Acetaminophen (Tylenol -) 650 mg PO Q6HPO PRN PRN Reason: FEVER Last Admin: 08/16/17 22:23 Dose: 650 mg Albuterol Sulfate (Ventolin 0.083% Nebulizer Soln -) 1 amp NEB Q6H PRN PRN Reason: SHORT OF BREATH/WHEEZING Last Admin: 08/17/17 11:16 Dose: 1 amp Chlordiazepoxide HCl (Librium -) 15 mg PO [id number] N[facility] Stop: 08/18/17 11:01 Chlordiazepoxide HCl (Librium -) 25 mg PO Q4H PRN PRN Reason: WITHDRAWAL(CONT SUBST) Stop: 08/19/17 15:39 Guaifenesin (Robitussin -) 10 ml PO Q4H PRN PRN Reason: COUGH Last Admin: 08/17/17 10:17 Dose: 10 ml Oseltamivir Phosphate (Tamiflu -) 75 mg PO BID [facility] Stop: 08/19/17 21:59 Last Admin: 08/17/17 10:16 Dose: 75 mg Multivit/Folic Acid/Iron ( Vitamins (Sjr) -) 1 tab PO DAILY [facility] Thiamine HCl (Vitamin B1 -) 100 mg PO HS [facility] Last Admin: 08/16/17 22:18 Dose: 100 mg Zolpidem Tartrate (Ambien -) 10 mg PO HS PRN PRN Reason: INSOMNIA - Objective Vital Signs: Vital Signs Temperature 98.1 F 08/17/17 06:16 Pulse Rate 76 08/17/17 06:16 Respiratory Rate 18 08/17/17 06:16 Blood Pressure 103/70 08/17/17 06:16 O2 Sat by Pulse Oximetry (%) 97 08/16/17 21:00 Constitutional: Yes: Calm Neck: Yes: Trachea Midline Cardiovascular: Yes: Regular Rate and Rhythm, S1, S2 Respiratory: Yes: Diminished Gastrointestinal: Yes: Normal Bowel Sounds, Soft Edema: No Neurological: Yes: Alert, Oriented Labs: CBC, BMP 08/15/17 07:36 08/15/17 07:36 Problem List - Problems (1) Influenza A Assessment/Plan: resp isolatiojn tamiflu Code(s): J10.1 - FLU DUE TO OTH IDENT INFLUENZA VIRUS W OTH RESP MANIFEST (2) COPD (chronic obstructive pulmonary disease) Assessment/Plan: nebulizer pulm on board bronchodilatrs Code(s): J44.9 - CHRONIC OBSTRUCTIVE PULMONARY DISEASE, UNSPECIFIED Qualifiers: COPD type: COPD with acute exacerbation Qualified Code(s): J44.1 - Chronic obstructive pulmonary disease with (acute) exacerbation (3) Alcohol withdrawal Assessment/Plan: librium protocol thiamine, folate/ vitamins detox eval noted plan for inpatient rehab once ready for discharge to go to [facility] pending insurance Code(s): F10.239 - ALCOHOL DEPENDENCE WITH WITHDRAWAL, UNSPECIFIED Qualifiers: Complication of substance-induced condition: uncomplicated Qualified Code(s ): F10.230 - Alcohol dependence with withdrawal, uncomplicated (4) Insomnia Assessment/Plan: ambien Code(s): G47.00 - INSOMNIA, UNSPECIFIED
[2017-08-17] MEDS: PRENATAL VITAMINS W/ FOLIC ACID TABLET (FP) PO SCH (14:51)
[2017-08-17] MEDS: chlordiazePOXIDE 5 MG CAPSULE PO SCH ×2 (18:32→23:18)
[2017-08-17] MEDS: THIAMINE HCL 100 MG TABLET (FP) PO SCH (21:29)
[2017-08-17] MEDS: ACETAMINOPHEN 325 MG TABLET (FP) PO PRN (21:34)
[2017-08-18] MEDS: ALBUTEROL SO4 0.083% IH SOL 2.5 MG/3 ML VIAL.NEB. NEB PRN ×3 (02:40→18:56)
[2017-08-18] MEDS: ACETAMINOPHEN 325 MG TABLET (FP) PO PRN ×2 (03:16→23:40)
[2017-08-18] MEDS: guaiFENesin 200 MG/10 ML 10 ML UNIT-DOSE CUPS PO PRN (03:20)
[2017-08-18] MEDS: chlordiazePOXIDE 5 MG CAPSULE PO SCH ×2 (05:26→11:07)
[2017-08-18] MEDS ORDERED: PT OWN MED DRAWER 7, Y5N ONE (10:48)
--- NOTE | 2017-08-18 11:05 | PN ---
Progress Note (short form) - Note Progress Note: Still with congested cough and generalized malaise. (+) SIMMONS No hemoptysis. Intake & Output 08/15/17 08/16/17 08/17/17 08/18/17 23:59 23:59 23:59 23:59 Intake Total 200 Output Total 712 427 3568 500 Balance -600 -600 -2200 -500 Weight 219 lb 5 oz Last Vital Signs Temp Pulse Resp BP Pulse Ox 97.4 F L 62 18 107/37 98 08/18/17 06:00 08/18/17 06:00 08/18/17 06:00 08/18/17 06:00 08/17/17 20:53 Active Medications Acetaminophen (Tylenol -) 650 mg PO Q6HPO PRN PRN Reason: FEVER Last Admin: 08/18/17 03:16 Dose: 650 mg Albuterol Sulfate (Ventolin 0.083% Nebulizer Soln -) 1 amp NEB Q6H PRN PRN Reason: SHORT OF BREATH/WHEEZING Last Admin: 08/18/17 09:29 Dose: 1 amp Chlordiazepoxide HCl (Librium -) 25 mg PO Q4H PRN PRN Reason: WITHDRAWAL(CONT SUBST) Stop: 08/19/17 15:39 Guaifenesin (Robitussin -) 10 ml PO Q4H PRN PRN Reason: COUGH Last Admin: 08/18/17 03:20 Dose: 10 ml Oseltamivir Phosphate (Tamiflu -) 75 mg PO BID [facility] Stop: 08/19/17 21:59 Last Admin: 08/17/17 21:30 Dose: 75 mg Multivit/Folic Acid/Iron ( Vitamins (Sjr) -) 1 tab PO DAILY NESSA Last Admin: 08/17/17 14:51 Dose: 1 tab Thiamine HCl (Vitamin B1 -) 100 mg PO HS NESSA Last Admin: 08/17/17 21:29 Dose: 100 mg Zolpidem Tartrate (Ambien -) 10 mg PO HS PRN PRN Reason: INSOMNIA Constitutional: Yes: NAD Eyes: Yes: EOM Intact HENT: Yes: Atraumatic Neck: Yes: Trachea Midline Cardiovascular: Yes: Regular Rate and Rhythm, S1, S2 Respiratory: Yes: scattered rhonchi Gastrointestinal: Yes: Soft Edema: No Neurological: Yes: drowsy, no Tremors Labs: Problem List - Problems (1) Alcohol withdrawal Code(s): F10.239 - ALCOHOL DEPENDENCE WITH WITHDRAWAL, UNSPECIFIED Qualifiers: Complication of substance-induced condition: uncomplicated Qualified Code(s ): F10.230 - Alcohol dependence with withdrawal, uncomplicated (2) Influenza A Code(s): J10.1 - FLU DUE TO OTH IDENT INFLUENZA VIRUS W OTH RESP MANIFEST (3) COPD (chronic obstructive pulmonary disease) Code(s): J44.9 - CHRONIC OBSTRUCTIVE PULMONARY DISEASE, UNSPECIFIED Qualifiers: COPD type: COPD with acute exacerbation Qualified Code(s): J44.1 - Chronic obstructive pulmonary disease with (acute) exacerbation (4) Anxiety Code(s): F41.9 - ANXIETY DISORDER, UNSPECIFIED Assessment/Plan Tamiflu O2 as needed Droplet precautions Cough syrup PRN Dr Vallecillo
[2017-08-18] MEDS: PRENATAL VITAMINS W/ FOLIC ACID TABLET (FP) PO SCH (11:06)
[2017-08-18] MEDS: OSELTAMIVIR PHOSPHATE 75 MG CAPSULE PO SCH ×2 (11:06→22:39)
--- NOTE | 2017-08-18 17:19 | PN ---
Progress Note, Physician Chief Complaint: Influenza, alcohol withdrawal History of Present Illness: Cough, congestion droplet precaution alcohol withdrawal protocol seen by Addiction medicine - Current Medication List Current Medications: Active Medications Acetaminophen (Tylenol -) 650 mg PO Q6HPO PRN PRN Reason: FEVER Last Admin: 08/18/17 03:16 Dose: 650 mg Albuterol Sulfate (Ventolin 0.083% Nebulizer Soln -) 1 amp NEB Q6H PRN PRN Reason: SHORT OF BREATH/WHEEZING Last Admin: 08/18/17 09:29 Dose: 1 amp Chlordiazepoxide HCl (Librium -) 25 mg PO Q4H PRN PRN Reason: WITHDRAWAL(CONT SUBST) Stop: 08/19/17 15:39 Guaifenesin (Robitussin -) 10 ml PO Q4H PRN PRN Reason: COUGH Last Admin: 08/18/17 03:20 Dose: 10 ml Oseltamivir Phosphate (Tamiflu -) 75 mg PO BID [facility] Stop: 08/19/17 21:59 Last Admin: 08/18/17 11:06 Dose: 75 mg Multivit/Folic Acid/Iron ( Vitamins (Sjr) -) 1 tab PO DAILY NESSA Last Admin: 08/18/17 11:06 Dose: 1 tab Thiamine HCl (Vitamin B1 -) 100 mg PO HS NESSA Last Admin: 08/17/17 21:29 Dose: 100 mg Zolpidem Tartrate (Ambien -) 10 mg PO HS PRN PRN Reason: INSOMNIA - Objective Vital Signs: Vital Signs Temperature 98.2 F 08/18/17 14:44 Pulse Rate 80 08/18/17 14:44 Respiratory Rate 16 08/18/17 14:44 Blood Pressure 156/64 08/18/17 14:44 O2 Sat by Pulse Oximetry (%) 98 08/18/17 09:00 Constitutional: Yes: Well Nourished, No Distress, Calm Cardiovascular: Yes: Regular Rate and Rhythm Respiratory: Yes: Regular, Cough, Rhonchi, Wheezes (diffuse) Gastrointestinal: Yes: Normal Bowel Sounds, Soft Edema: No Peripheral Pulses WNL: Yes Neurological: Yes: Alert, Oriented Psychiatric: Yes: Alert, Oriented Labs: CBC, BMP 08/15/17 07:36 08/15/17 07:36 Problem List - Problems (1) Alcohol withdrawal Assessment/Plan: -seen by Addiction medicine -awaiting to be discharged to [facility] for rehab -on alc withdrawal protocol with librium Code(s): F10.239 - ALCOHOL DEPENDENCE WITH WITHDRAWAL, UNSPECIFIED Qualifiers: Complication of substance-induced condition: uncomplicated Qualified Code(s ): F10.230 - Alcohol dependence with withdrawal, uncomplicated (2) Influenza A Assessment/Plan: -Droplet precaution -Tamiflu Code(s): J10.1 - FLU DUE TO OTH IDENT INFLUENZA VIRUS W OTH RESP MANIFEST (3) Insomnia Assessment/Plan: -on Ambien Code(s): G47.00 - INSOMNIA, UNSPECIFIED (4) Anxiety Code(s): F41.9 - ANXIETY DISORDER, UNSPECIFIED Assessment/Plan see problem list
--- NOTE | 2017-08-18 17:21 | DS ---
Physical Examination Vital Signs: Vital Signs Temperature 98.2 F 08/18/17 14:44 Pulse Rate 80 08/18/17 14:44 Respiratory Rate 16 08/18/17 14:44 Blood Pressure 156/64 08/18/17 14:44 O2 Sat by Pulse Oximetry (%) 98 08/18/17 09:00 Constitutional: Yes: Well Nourished, No Distress, Calm Cardiovascular: Yes: Regular Rate and Rhythm Respiratory: Yes: Regular, Cough, Wheezes (diffuse) Musculoskeletal: Yes: WNL Extremities: Yes: WNL Neurological: Yes: Alert, Oriented Psychiatric: Yes: Alert, Oriented Labs: CBC, BMP 08/15/17 07:36 08/15/17 07:36 Discharge Summary Reason For Visit: INFLUENZA,ALCOHOL WITHDRAWAL SYNDROME,COPD Current Active Problems Alcohol withdrawal (Acute) Influenza A (Acute) Insomnia (Acute) COPD (chronic obstructive pulmonary disease) (Chronic) Hospital Course: The patient is a 61 year old male, with a significant past medical history of COPD and alcoholism, who presents to the emergency department with, productive cough, shortness of breath, sore throat and nausea for approx. 5 [facility] The patient reports the productive cough has been progressively worse and states he has vomited 1x secondary to a coughing episode. The patient reports he used a nebulizer treatment at home with minimal relief. The patient reports sick contacts at home with similar symptoms. The patient reports his last alcoholic drink was approx. 2 days ago. He denies any recent fevers, chills, headache or dizziness. He denies any recent , diarrhea or constipation. He denies any recent chest pain. He denies any recent dysuria, frequency, urgency or hematuria. No associated abdominal pain. Condition: Stable - Instructions Disposition: CARE HOME FACILITY - Home Medications Comprehensive Discharge Medication List: Ambulatory Orders Albuterol 0.083% Nebulizer Taryn [Ventolin 0.083% Nebulizer Soln -] 1 neb NEB Q6H 08/14/17 Albuterol 0.083% Nebulizer Taryn [Ventolin 0.083% Nebulizer Soln -] 1 amp NEB Q6H PRN amp 08/18/17 Chlordiazepoxide [Librium -] 15 mg PO [id number] capsule MDD 4 08/18/17 Guaifenesin [Robitussin -] 10 ml PO Q4H PRN cup 08/18/17 Vitamins (Sjr) - 1 tab PO DAILY tablet 08/18/17 Thiamine HCl [Vitamin B1 -] 100 mg PO HS tablet 08/18/17 Zolpidem Tartrate [Ambien] 10 mg PO HS PRN tablet MDD 1 08/18/17
[2017-08-18] MEDS: THIAMINE HCL 100 MG TABLET (FP) PO SCH (22:39)
[2017-08-19] MEDS: ALBUTEROL SO4 0.083% IH SOL 2.5 MG/3 ML VIAL.NEB. NEB PRN ×3 (07:50→20:53)
[2017-08-19] MEDS ORDERED: PT OWN MED DRAWER 7, Y5N ONE (10:14)
[2017-08-19] MEDS: OSELTAMIVIR PHOSPHATE 75 MG CAPSULE PO SCH (10:16)
[2017-08-19] MEDS: PRENATAL VITAMINS W/ FOLIC ACID TABLET (FP) PO SCH (10:16)
--- NOTE | 2017-08-19 10:47 | PN ---
Progress Note (short form) - Note Progress Note: Overall appears better. Residual cough and malaise. No hemoptysis. Intake & Output 08/16/17 08/17/17 08/18/17 08/19/17 23:59 23:59 23:59 23:59 Intake Total 200 Output Total 800 2200 1600 Balance -600 -2200 -1600 Last Vital Signs Temp Pulse Resp BP Pulse Ox 98.7 F 79 16 115/42 98 08/18/17 18:00 08/18/17 18:00 08/18/17 21:00 08/18/17 18:00 08/18/17 21:00 Active Medications Acetaminophen (Tylenol -) 650 mg PO Q6HPO PRN PRN Reason: FEVER Last Admin: 08/18/17 23:40 Dose: 650 mg Albuterol Sulfate (Ventolin 0.083% Nebulizer Soln -) 1 amp NEB Q6H PRN PRN Reason: SHORT OF BREATH/WHEEZING Last Admin: 08/19/17 07:50 Dose: 1 amp Chlordiazepoxide HCl (Librium -) 25 mg PO Q4H PRN PRN Reason: WITHDRAWAL(CONT SUBST) Stop: 08/19/17 15:39 Guaifenesin (Robitussin -) 10 ml PO Q4H PRN PRN Reason: COUGH Last Admin: 08/18/17 03:20 Dose: 10 ml Oseltamivir Phosphate (Tamiflu -) 75 mg PO BID NESSA Stop: 08/19/17 21:59 Last Admin: 08/19/17 10:16 Dose: 75 mg Multivit/Folic Acid/Iron ( Vitamins (Sjr) -) 1 tab PO DAILY [facility] Last Admin: 08/19/17 10:16 Dose: 1 tab Thiamine HCl (Vitamin B1 -) 100 mg PO HS [facility] Last Admin: 08/18/17 22:39 Dose: 100 mg Zolpidem Tartrate (Ambien -) 10 mg PO HS PRN PRN Reason: INSOMNIA Constitutional: Yes: NAD Eyes: Yes: EOM Intact HENT: Yes: Atraumatic Neck: Yes: Trachea Midline Cardiovascular: Yes: Regular Rate and Rhythm, S1, S2 Respiratory: Yes: scattered rhonchi Gastrointestinal: Yes: Soft Edema: No Neurological: Yes: drowsy, no Tremors Labs: Problem List - Problems (1) Alcohol withdrawal Code(s): F10.239 - ALCOHOL DEPENDENCE WITH WITHDRAWAL, UNSPECIFIED Qualifiers: Complication of substance-induced condition: uncomplicated Qualified Code(s ): F10.230 - Alcohol dependence with withdrawal, uncomplicated (2) Influenza A Code(s): J10.1 - FLU DUE TO OTH IDENT INFLUENZA VIRUS W OTH RESP MANIFEST (3) COPD (chronic obstructive pulmonary disease) Code(s): J44.9 - CHRONIC OBSTRUCTIVE PULMONARY DISEASE, UNSPECIFIED Qualifiers: COPD type: COPD with acute exacerbation Qualified Code(s): J44.1 - Chronic obstructive pulmonary disease with (acute) exacerbation (4) Anxiety Code(s): F41.9 - ANXIETY DISORDER, UNSPECIFIED Assessment/Plan Tamiflu to complete 5 days O2 as needed Droplet precautions Cough syrup PRN Agree with D/C home Dr Vallecillo
--- NOTE | 2017-08-19 19:12 | DS ---
Physical Examination Vital Signs: Vital Signs Temperature 97.9 F 08/19/17 15:26 Pulse Rate 69 08/19/17 15:26 Respiratory Rate 16 08/19/17 15:26 Blood Pressure 122/61 08/19/17 15:26 O2 Sat by Pulse Oximetry (%) 98 08/19/17 09:00 Cardiovascular: Yes: Regular Rate and Rhythm Respiratory: Yes: Regular, CTA Bilaterally Gastrointestinal: Yes: Normal Bowel Sounds, Soft Labs: CBC, BMP 08/15/17 07:36 08/15/17 07:36 Discharge Summary Reason For Visit: INFLUENZA,ALCOHOL WITHDRAWAL SYNDROME,COPD Current Active Problems Alcohol withdrawal (Acute) Influenza A (Acute) Insomnia (Acute) COPD (chronic obstructive pulmonary disease) (Chronic) Hospital Course: The patient is a 61 year old male, with a significant past medical history of COPD and alcoholism, who presents to the emergency department with, productive cough, shortness of breath, sore throat and nausea for approx. 5 days since being d/c from hosptial. The patient reports the productive cough has been progressively worse and states he has vomited 1x secondary to a coughing episode. The patient reports he used a nebulizer treatment at home with minimal relief. The patient reports sick contacts at home with similar symptoms. The patient reports his last alcoholic drink was approx. 2 days ago. He denies any recent fevers, chills, headache or dizziness. He denies any recent , diarrhea or constipation. He denies any recent chest pain. He denies any recent dysuria, frequency, urgency or hematuria. No associated abdominal pain. - Problems (1) Alcohol withdrawal Assessment/Plan: -seen by Addiction medicine -awaiting to be discharged to [facility] for rehab -on alc withdrawal protocol with librium Code(s): F10.239 - ALCOHOL DEPENDENCE WITH WITHDRAWAL, UNSPECIFIED Qualifiers: Complication of substance-induced condition: uncomplicated Qualified Code(s ): F10.230 - Alcohol dependence with withdrawal, uncomplicated (2) Influenza A Assessment/Plan: -Droplet precaution -Tamiflu -cxr Code(s): J10.1 - FLU DUE TO OTH IDENT INFLUENZA VIRUS W OTH RESP MANIFEST (3) Insomnia Assessment/Plan: -on Ambien Code(s): G47.00 - INSOMNIA, UNSPECIFIED (4) Anxiety Code(s): F41.9 - ANXIETY DISORDER, UNSPECIFIED Assessment/Plan Condition: Stable - Instructions Disposition: CUSTODIAL FACILITY - Home Medications Comprehensive Discharge Medication List: Ambulatory Orders Albuterol 0.083% Nebulizer Taryn [Ventolin 0.083% Nebulizer Soln -] 1 neb NEB Q6H 08/14/17 Albuterol 0.083% Nebulizer Taryn [Ventolin 0.083% Nebulizer Soln -] 1 amp NEB Q6H PRN amp 08/18/17 Chlordiazepoxide [Librium -] 15 mg PO [id number] capsule MDD 4 08/18/17 Guaifenesin [Robitussin -] 10 ml PO Q4H PRN cup 08/18/17 Vitamins (Sjr) - 1 tab PO DAILY tablet 08/18/17 Thiamine HCl [Vitamin B1 -] 100 mg PO HS tablet 08/18/17 Zolpidem Tartrate [Ambien] 10 mg PO HS PRN tablet MDD 1 08/18/17
[2017-08-19 21:34] LABS: BASO % 0.5 % (0-2.0); EOS % 4.1 % (0-4.5); HEMATOCRIT 41.3 % (35.4-49); HEMOGLOBIN 13.4 GM/dL (11.7-16.9); LYMPH % 28.7 % (8-40); MCH 31.1 pg (25.7-33.7); MCHC 32.6 g/dl (32.0-35.9); MEAN CELL VOLUME 95.6 fl (80-96); MEAN PLT VOLUME 9.6 fl (7.5-11.1); NEUT % 56.7 % (42.8-82.8); PLATELET COUNT 171 K/MM3 (134-434); RBC 4.32 M/mm3 (4.00-5.60); RDW 13.3 % (11.9-15.9); WHITE BLOOD COUNT 5.7 K/mm3 (4.0-10.0)
[2017-08-19 21:53] LABS: ALK PHOS 87 U/L (45-117); ANION GAP 6 (8-16); BILIRUBIN,TOTAL 0.6 mg/dL (0.2-1.0); BLOOD UREA NITROGEN 13 mg/dL (7-18); CALCIUM 7.9 mg/dL (8.5-10.1); CHLORIDE 102 mmol/L (98-107); CO2 30 mmol/L (21-32); GLUCOSE,RANDOM 95 mg/dL (74-106); POTASSIUM 4.4 mmol/L (3.5-5.1); SGOT/AST 39 U/L (15-37); SGPT/ALT 65 U/L (12-78); SODIUM 138 mmol/L (136-145); TOT PROT 7.2 g/dl (6.4-8.2)
[2017-08-20] MEDS: ACETAMINOPHEN 325 MG TABLET (FP) PO PRN ×2 (00:17→06:32)
[2017-08-20] MEDS: THIAMINE HCL 100 MG TABLET (FP) PO SCH (00:17)
[2017-08-20] MEDS: ALBUTEROL SO4 0.083% IH SOL 2.5 MG/3 ML VIAL.NEB. NEB PRN ×2 (06:32→13:26)
[2017-08-20] MEDS: guaiFENesin 200 MG/10 ML 10 ML UNIT-DOSE CUPS PO PRN (06:33)
--- NOTE | 2017-08-20 07:55 | DS ---
Physical Examination Vital Signs: Vital Signs Temperature 98.4 F 08/19/17 18:00 Pulse Rate 64 08/19/17 18:00 Respiratory Rate 16 08/19/17 18:00 Blood Pressure 114/64 08/19/17 18:00 O2 Sat by Pulse Oximetry (%) 98 08/19/17 09:00 Cardiovascular: Yes: Regular Rate and Rhythm Respiratory: Yes: Regular, CTA Bilaterally Gastrointestinal: Yes: Normal Bowel Sounds, Soft Labs: CBC, BMP 08/19/17 20:30 08/19/17 20:30 Discharge Summary Reason For Visit: INFLUENZA,ALCOHOL WITHDRAWAL SYNDROME,COPD Current Active Problems Alcohol withdrawal (Acute) Influenza A (Acute) Insomnia (Acute) COPD (chronic obstructive pulmonary disease) (Chronic) Hospital Course: The patient is a 61 year old male, with a significant past medical history of COPD and alcoholism, who presents to the emergency department with, productive cough, shortness of breath, sore throat and nausea for approx. 5 days since being d/c from hosptial. The patient reports the productive cough has been progressively worse and states he has vomited 1x secondary to a coughing episode. The patient reports he used a nebulizer treatment at home with minimal relief. The patient reports sick contacts at home with similar symptoms. The patient reports his last alcoholic drink was approx. 2 days ago. He denies any recent fevers, chills, headache or dizziness. He denies any recent , diarrhea or constipation. He denies any recent chest pain. He denies any recent dysuria, frequency, urgency or hematuria. No associated abdominal pain. - Problems (1) Alcohol withdrawal Assessment/Plan: -seen by Addiction medicine -awaiting to be discharged to [facility] for rehab -on alc withdrawal protocol with librium Code(s): F10.239 - ALCOHOL DEPENDENCE WITH WITHDRAWAL, UNSPECIFIED Qualifiers: Complication of substance-induced condition: uncomplicated Qualified Code(s ): F10.230 - Alcohol dependence with withdrawal, uncomplicated (2) Influenza A Assessment/Plan: -Droplet precaution -Tamiflu -cxr Code(s): J10.1 - FLU DUE TO OTH IDENT INFLUENZA VIRUS W OTH RESP MANIFEST (3) Insomnia Assessment/Plan: -on Ambien Code(s): G47.00 - INSOMNIA, UNSPECIFIED (4) Anxiety Code(s): F41.9 - ANXIETY DISORDER, UNSPECIFIED Condition: Stable - Instructions Diet, Activity, Other Instructions: To [facility] for Rehab Disposition: TRANSFER ACUTE CARE/OTHER HOSP - Home Medications Comprehensive Discharge Medication List: Ambulatory Orders Albuterol 0.083% Nebulizer Taryn [Ventolin 0.083% Nebulizer Soln -] 1 neb NEB Q6H 08/14/17 Albuterol 0.083% Nebulizer Taryn [Ventolin 0.083% Nebulizer Soln -] 1 amp NEB Q6H PRN amp 08/18/17 Guaifenesin [Robitussin -] 10 ml PO Q4H PRN cup 08/18/17 Vitamins (Sjr) - 1 tab PO DAILY tablet 08/18/17 Thiamine HCl [Vitamin B1 -] 100 mg PO HS tablet 08/18/17 Zolpidem Tartrate [Ambien] 10 mg PO HS PRN tablet MDD 1 08/18/17
--- NOTE | 2017-08-20 10:49 | PN ---
Progress Note (short form) - Note Progress Note: PULMONARY Denies shortness of breath, cough or fevers. Last Vital Signs Temp Pulse Resp BP Pulse Ox 97.4 F L 62 20 115/67 95 08/20/17 06:00 08/20/17 06:00 08/20/17 06:00 08/20/17 06:00 08/19/17 21:00 Gen: NAD at rest Heart: RRR Lung: decreased breath sounds at the bases Abd: soft, nontender Ext: no edema CBC, BMP 08/19/17 20:30 08/19/17 20:30 Active Medications Acetaminophen (Tylenol -) 650 mg PO Q6HPO PRN PRN Reason: FEVER Last Admin: 08/20/17 06:32 Dose: 650 mg Albuterol Sulfate (Ventolin 0.083% Nebulizer Soln -) 1 amp NEB Q6H PRN PRN Reason: SHORT OF BREATH/WHEEZING Last Admin: 08/20/17 06:32 Dose: 1 amp Guaifenesin (Robitussin -) 10 ml PO Q4H PRN PRN Reason: COUGH Last Admin: 08/20/17 06:33 Dose: 10 ml Multivit/Folic Acid/Iron ( Vitamins (Sjr) -) 1 tab PO DAILY NESSA Last Admin: 08/19/17 10:16 Dose: 1 tab Thiamine HCl (Vitamin B1 -) 100 mg PO HS NESSA Last Admin: 08/20/17 00:17 Dose: 100 mg A/P Influenza A COPD Alcohol Withdrawal Anxiety - s/p tamiflu course - inhaled bronchodilators as needed - awaiting rehab placement - DVT prophylaxis
[2017-08-20] MEDS ORDERED: PT OWN MED DRAWER 7, Y5N ONE (10:58)
[2017-08-20] MEDS: PRENATAL VITAMINS W/ FOLIC ACID TABLET (FP) PO SCH (11:00)
[2017-08-20 11:03] VITALS: BP 110/56; PULSE 70; TEMP 98
[2017-08-21] MEDS: PRENATAL VITAMINS W/ FOLIC ACID TABLET (FP) PO SCH (10:03)
[2017-08-21] MEDS: ACETAMINOPHEN 325 MG TABLET (FP) PO ONE (10:05)
== END 2017-08-20 13:35 | disposition short-term general hospital (02) | DRG 194 ==
LOC: JER 12:15 → JERBED 15:33 → J8W 08-15 19:54
PROVIDERS: ADMIT Student in an Organized Health Care Education/Training Program; ATTEND Student in an Organized Health Care Education/Training Program
PROC: HZ2ZZZZ Detoxification Services for Substance Abuse Treatment (ICD-10-PCS; principal; 2017-08-16)
DX: J09.X2 Influenza due to identified novel influenza A virus with other respiratory manifestations (principal); J44.1 Chronic obstructive pulmonary disease with (acute) exacerbation; F10.230 Alcohol dependence with withdrawal, uncomplicated; Y90.0 Blood alcohol level of less than 20 mg/100 ml; K21.9 Gastro-esophageal reflux disease without esophagitis; G47.00 Insomnia, unspecified
CPT/HCPCS: 36415; 70450-TC; 71045-TC; 80053; 80307; 83735; 84100; 85025; 87040; 87804; 93005; 93010; 94640; 99285-25

== ENCOUNTER 2017-08-20 20:40 | Inpatient (IN) | payer OTHER ==
[2017-08-20 21:12] VITALS: BMI 29.7
--- NOTE | 2017-08-20 23:16 | HP ---
Admission ROS [facility] - [facility] Chief Complaint: I WANT TO GO TO REHAB Allergies/Adverse Reactions: Allergies Allergy/AdvReac Type Severity Reaction Status Date / Time No Known Allergies Allergy Verified 08/20/17 22:16 History of Present Illness: 61 YEARS OLD MALE WITH LONG HISTORY OF ALCOHOL DEPENDENCE HAS COPD UNSTEADY GAIT , NEUROPATHY GERD ARTHRITIS OF THE NECK LOWER BACK ASTHMA IS ADMITTED TO REHAB Exam Limitations: No Limitations - Ebola screening Have you traveled outside of the country in the last 21 days: No Have you had contact with anyone from an Ebola affected area: No Have you been sick,other than usual withdrawal symptoms: No Do you have a fever: No - Review of Systems Constitutional: Weight Stable EENT: reports: Dental Problems (MULTIPLE TEETH MISSING) Respiratory: reports: SOB with Exertion Cardiac: reports: No Symptoms Reported GI: reports: No Symptoms Reported : reports: No Symptoms Reported Musculoskeletal: reports: Back Pain (SINCE 1997), Muscle Weakness (BOTH LEGS) Integumentary: reports: Change in Color (LEFT HAND) Neuro: reports: No Symptoms reported Endocrine: reports: No Symptoms Reported Hematology: reports: No Symptoms Reported Psychiatric: reports: Judgement Intact, Orientated x3, Depressed Other Systems: Reviewed and Negative Patient History - Patient Medical History Hx Anemia: No Hx Asthma: Yes Hx Chronic Obstructive Pulmonary Disease (COPD): Yes Hx Cancer: No Hx Cardiac Disorders: No Hx Congestive Heart Failure: No Hx Hypertension: No Hx Hypercholesterolemia: No Hx Pacemaker: No HX Cerebrovascular Accident: No Hx Seizures: No Hx Dementia: No Hx Diabetes: No Hx Gastrointestinal Disorders: No Hx Liver Disease: Yes (cirrhosis ) Hx Genitourinary Disorders: No Hx Sexually Transmitted Disorders: No Hx Renal Disease (ESRD): No Hx Thyroid Disease: No Hx Human Immunodeficiency Virus (HIV): No Hx Hepatitis C: No Hx Depression: Yes Hx Suicide Attempt: No Hx Bipolar Disorder: No Hx Schizophrenia: No - Patient Surgical History Past Surgical History: Yes Hx Neurologic Surgery: Yes (LUMBAR 1987 DISC RUPTURE) Hx Cataract Extraction: No Hx Cardiac Surgery: No Hx Lung Surgery: No Hx Breast Surgery: No Hx Breast Biopsy: No Hx Abdominal Surgery: No Hx Appendectomy: No Hx Cholecystectomy: No Hx Genitourinary Surgery: No Hx Orthopedic Surgery: Yes (laminectomy/Back and Left Shoulder) Other Surgical History: H/O L ARM SKIN GRAFT Anesthesia Reaction: No - PPD History Previous Implant?: Yes Documented Results: Negative w/proof Implanted On Prior [facility] Admission?: Yes Date: 12/09/16 Results: 0 MM PPD to be Administered?: No - Smoking Cessation Smoking history: Never smoked Have you smoked in the past 12 months: No Aproximately how many cigarettes per day: 0 Cigars Per Day: 0 Hx Chewing Tobacco Use: No Initiated information on smoking cessation: No - Substance & Tx. History Hx Alcohol Use: Yes Hx Substance Use: No Substance Use Type: Alcohol Hx Substance Use Treatment: Yes (03/2017 [facility] - Substances Abused Alcohol Route: Oral Frequency: Daily Amount used: 1/2 G WINE Age of first use: 14 Date of Last Use: 08/14/17 Family Disease History - Family Disease History Family Disease History: CA: Mother (BREAST CA. AND ), Other: Father (ETOH DEPENDENT AND ), Brother (NO CONTACT), Sister (NO CONTACT) Admission Physical Exam [facility] - Vital Signs Vital Signs: Vital Signs - 24 hr 08/20/17 21:08 Temperature 97.3 F L Pulse Rate 64 Respiratory 18 Rate Blood Pressure 133/80 - Physical General Appearance: Yes: No Apparent Distress, Nourished, Appropriately Dressed HEENTM: Yes: Hearing grossly Normal, Normal ENT Inspection, Normocephalic, Normal Voice Respiratory: Yes: Chest Non-Tender, No Respiratory Distress, No Accessory Muscle Use, Wheezing, Hyperresonant Neck: Yes: Supple, Trachea in good position Breast: Yes: Breasts Symetrical Cardiology: Yes: Regular Rhythm, S1, S2, Bradycardia Abdominal: Yes: Normal Bowel Sounds, Non Tender, Soft Genitourinary: Yes: Within Normal Limits Back: Yes: Normal Inspection Musculoskeletal: Yes: Gait Steady (wheelchair), Back pain, Muscle Pain (knees), Muscle weakness (legs) Extremities: Yes: Normal Inspection, Non-Tender Neurological: Yes: Fully Oriented, Alert, Normal Response, Depressed Affect Integumentary: Yes: Warm Lymphatic: Yes: Within Normal Limits - Diagnostic (1) Use of cane as ambulatory aid Current Visit: Yes Status: Chronic (2) Uses wheelchair Current Visit: Yes Status: Chronic (3) Alcohol dependence with uncomplicated withdrawal Current Visit: No Status: Acute (4) Asthma Current Visit: Yes Status: Chronic Qualifiers: Asthma severity: mild Asthma persistence: intermittent Asthma complication type: with status asthmaticus Qualified Code(s): J45.22 - Mild intermittent asthma with status asthmaticus (5) COPD (chronic obstructive pulmonary disease) Current Visit: Yes Status: Chronic Qualifiers: COPD type: emphysema Qualified Code(s): J44.1 - Chronic obstructive pulmonary disease with (acute) exacerbation (6) GERD (gastroesophageal reflux disease) Current Visit: Yes Status: Chronic Qualifiers: Esophagitis presence: without esophagitis Qualified Code(s): K21.9 - Gastro -esophageal reflux disease without esophagitis (7) Neuropathy Current Visit: Yes Status: Chronic Comment: left face + right toe big (8) Unsteady gait Current Visit: Yes Status: Chronic Cleared for Admission S - Detox or Rehab [facility] Level of Care: Observation Bed Detox Regimen/Protocol: Not Applicable Claeared for Rehab Admission: Yes [facility] Breath Alcohol Content Breath Alcohol Content: 0 Urine Drug Screen - Control Is Test Valid: Yes - Results Drug Screen Negative: No Urine Drug Screen Results: BZO-Benzodiazepines Inpatient Rehab Admission - Initial Determination Are CD services needed?: Yes Free of communicable disease: Yes Not in need of hospitalization: Yes - Rehab Admission Criteria Previous failed treatment: Yes Poor recovery environment: Yes Comorbidities: Yes Lacks judgement: No Patient is meeting Inpatient Rehab admission criteria:: Yes
[2017-08-20] MEDS ORDERED: MAGNESIUM CITRATE 300 ML BOTTLE PO PRN (23:31)
[2017-08-20] MEDS ORDERED: LOPERAMIDE HCL 2 MG CAPSULE PO PRN (23:31)
[2017-08-20] MEDS ORDERED: MAGNESIUM HYDROX 2400MG/30ML ORAL SUSPENSION 30 ML CUP PO PRN (23:31)
[2017-08-20] MEDS ORDERED: BACITRACIN 0.9 GM PACKET TP ONE (23:32)
[2017-08-21] MEDS: ALBUTEROL SO4 0.083% IH SOL 2.5 MG/3 ML VIAL.NEB. NEB PRN ×3 (03:40→19:17)
--- NOTE | 2017-08-21 08:11 | HP ---
Psychiatrist Admission - Data Date of interview: 08/21/17 Admission source: [facility] Identifying data: This is one of the several [facility] admission for this 61 years old [place] male, unemployed on SSD , currently homeless. Medical History: Bronchial asthma, COPD, GERD, costochondritis, low back pain and obesity, history of treatment for gonorrhea; cirrhosis of the liver, history of herniated disk and laminectomy.Patient moves around in a wheelchair.No reported allergies. Psychiatric History: No reported history of psychiatric hospitalizations.Patient denies prior history of psychiatric treatment. Physical/Sexual Abuse/Trauma History: Patient denies any history of abuse.Never served in the . Vital Signs: Vital Signs - 24 hr 08/20/17 08/21/17 08/21/17 21:08 01:05 03:19 Temperature 97.3 F L 97.5 F L Pulse Rate 64 61 64 Respiratory 18 18 18 Rate Blood Pressure 133/80 120/77 08/21/17 07:00 Temperature 97.6 F Pulse Rate 76 Respiratory 18 Rate Blood Pressure 103/72 Allergies/Adverse Reactions: Allergies Allergy/AdvReac Type Severity Reaction Status Date / Time No Known Allergies Allergy Verified 08/20/17 22:16 Date of last physical exam: 08/20/17 Concur with the findings of this exam: Yes - Substance Abuse/Tx History Hx Alcohol Use: Yes Hx Substance Use: No Substance Use Type: Alcohol (daily wine about 3 glasses a day.) Hx Substance Use Treatment: Yes (several detox/rehab.) Mental Status Exam - Mental Status Exam Alert and Oriented to: Time, Place, Person Cognitive Function: Grossly Intact Patient Appearance: Unkempt Affect: Appropriate, Mood Congruent Patient Behavior: Appropriate, Cooperative Speech Pattern: Clear, Appropriate Voice Loudness: Normal Thought Process: Intact, Goal Oriented Thought Disorder: Not Present Hallucinations: Denies Suicidal Ideation: Denies Homicidal Ideation: Denies Insight/Judgement: Fair Sleep: Fair Appetite: Fair Muscle strength/Tone: Normal Gait/Station: Other (in wheelchair) Psychiatric Findings - Problem List ([place] 1, 2,3) (1) Alcohol dependence Current Visit: Yes Status: Acute (2) Asthma Current Visit: No Status: Chronic Qualifiers: Asthma severity: mild intermittent Asthma complication type: uncomplicated Qualified Code(s): J45.20 - Mild intermittent asthma, uncomplicated (3) COPD (chronic obstructive pulmonary disease) Current Visit: No Status: Chronic Qualifiers: COPD type: COPD with acute exacerbation Qualified Code(s): J44.1 - Chronic obstructive pulmonary disease with (acute) exacerbation (4) Cervical spine degeneration Current Visit: No Status: Chronic Qualifiers: 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 or radiculopathy Qualified Code(s): M47.812 - Spondylosis without myelopathy or radiculopathy, cervical region (5) Chronic low back pain Current Visit: No Status: Chronic Qualifiers: Back pain laterality: bilateral Sciatica presence: without sciatica Qualified Code(s): M54.5 - Low back pain (6) Degenerative disc disease Current Visit: No Status: Chronic Qualifiers: Spinal region: unspecified cervical region Qualified Code(s): M50.30 - Other cervical disc degeneration, unspecified cervical region (7) GERD (gastroesophageal reflux disease) Current Visit: No Status: Chronic Qualifiers: Esophagitis presence: without esophagitis Qualified Code(s): K21.9 - Gastro -esophageal reflux disease without esophagitis (8) Neuropathy Current Visit: No Status: Chronic Comment: left face + right toe big (9) Unsteady gait Current Visit: No Status: Chronic (10) Costochondritis Current Visit: No Status: Resolved - Initial Treatment Plan Initial Treatment Plan: Will monitor progress as needed.
[2017-08-21] MEDS: PRENATAL VITAMINS W/ FOLIC ACID TABLET (FP) PO SCH (10:05)
[2017-08-21] MEDS: IBUPROFEN 400 MG TABLET (FP) PO PRN (21:14)
[2017-08-21] MEDS: ALBUTEROL SO4 18 GM HFA INHALER IH PRN (21:16)
[2017-08-21] MEDS: THIAMINE HCL 100 MG TABLET (FP) PO SCH (22:02)
[2017-08-22] MEDS: ALBUTEROL SO4 0.083% IH SOL 2.5 MG/3 ML VIAL.NEB. NEB PRN ×2 (03:56→18:14)
--- NOTE | 2017-08-22 07:54 | EKG ---
Test Reason : Blood Pressure : / mmHG Vent. Rate : 067 BPM Atrial Rate : 067 BPM P-R Int : 132 ms QRS Dur : 096 ms QT Int : 398 ms P-R-T Axes : 048 020 022 degrees QTc Int : 420 ms NORMAL SINUS RHYTHM NORMAL ECG WHEN COMPARED WITH ECG OF 14-AUG-2017 13:57, VENT. RATE HAS DECREASED BY 45 BPM Confirmed by ÁNGELA RODRÍGUEZ MD ([id number]) on 08/22/2017 7:54:21 AM Referred By: Confirmed By:ÁNGELA RODRÍGUEZ MD
[2017-08-22] MEDS: PRENATAL VITAMINS W/ FOLIC ACID TABLET (FP) PO SCH (10:27)
[2017-08-22] MEDS: ACETAMINOPHEN 325 MG TABLET (FP) PO PRN (11:06)
[2017-08-22] MEDS: MAG HYDROX/AL HYDROX/SIMETH 30 ML UNIT-DOSE CUP PO PRN (13:13)
[2017-08-22] MEDS: ALBUTEROL SO4 18 GM HFA INHALER IH PRN ×2 (18:09→23:55)
[2017-08-22] MEDS: THIAMINE HCL 100 MG TABLET (FP) PO SCH (21:10)
[2017-08-22] MEDS: IBUPROFEN 400 MG TABLET (FP) PO PRN (21:11)
[2017-08-23] MEDS: ALBUTEROL SO4 0.083% IH SOL 2.5 MG/3 ML VIAL.NEB. NEB PRN ×3 (00:19→19:18)
[2017-08-23] MEDS: PRENATAL VITAMINS W/ FOLIC ACID TABLET (FP) PO SCH (09:50)
--- NOTE | 2017-08-23 12:59 | EKG ---
Test Reason : Blood Pressure : / mmHG Vent. Rate : 061 BPM Atrial Rate : 061 BPM P-R Int : 132 ms QRS Dur : 094 ms QT Int : 410 ms P-R-T Axes : 049 033 041 degrees QTc Int : 412 ms NORMAL SINUS RHYTHM NORMAL ECG WHEN COMPARED WITH ECG OF 21-AUG-2017 10:45, NO SIGNIFICANT CHANGE WAS FOUND Confirmed by NELLIE ARIAS MD ([id number]) on 08/23/2017 12:59:30 PM Referred By: Confirmed By:NELLIE ARIAS MD
[2017-08-23] MEDS: LIDOCAINE 5% TOPICAL PATCH TP SCH (13:17)
[2017-08-23] MEDS: THIAMINE HCL 100 MG TABLET (FP) PO SCH (21:20)
[2017-08-23] MEDS: LIDOCAINE PATCH REMOVAL MC SCH (21:20)
[2017-08-23] MEDS: IBUPROFEN 400 MG TABLET (FP) PO PRN (21:21)
[2017-08-24] MEDS: ALBUTEROL SO4 18 GM HFA INHALER IH PRN ×3 (00:19→18:56)
[2017-08-24] MEDS: ALBUTEROL SO4 0.083% IH SOL 2.5 MG/3 ML VIAL.NEB. NEB PRN ×2 (05:30→23:49)
[2017-08-24] MEDS: PRENATAL VITAMINS W/ FOLIC ACID TABLET (FP) PO SCH (09:52)
[2017-08-24] MEDS: LIDOCAINE 5% TOPICAL PATCH TP SCH (09:52)
[2017-08-24] MEDS: ACETAMINOPHEN 325 MG TABLET (FP) PO PRN (09:54)
[2017-08-24] MEDS: MAG HYDROX/AL HYDROX/SIMETH 30 ML UNIT-DOSE CUP PO PRN (14:53)
[2017-08-24] MEDS: THIAMINE HCL 100 MG TABLET (FP) PO SCH (21:11)
[2017-08-24] MEDS: LIDOCAINE PATCH REMOVAL MC SCH (21:12)
[2017-08-25] MEDS: ACETAMINOPHEN 325 MG TABLET (FP) PO PRN (00:21)
[2017-08-25] MEDS: MAG HYDROX/AL HYDROX/SIMETH 30 ML UNIT-DOSE CUP PO PRN ×2 (00:22→21:15)
[2017-08-25] MEDS: ALBUTEROL SO4 0.083% IH SOL 2.5 MG/3 ML VIAL.NEB. NEB PRN (07:03)
[2017-08-25] MEDS: MENTHOL/PHENOL 1 EACH UD MM PRN (07:03)
[2017-08-25] MEDS: guaiFENesin/D-METHORPHAN HB 10 ML UNIT-DOSE CUPS PO PRN (07:03)
[2017-08-25] MEDS: PRENATAL VITAMINS W/ FOLIC ACID TABLET (FP) PO SCH (09:57)
[2017-08-25] MEDS: LIDOCAINE 5% TOPICAL PATCH TP SCH (09:57)
[2017-08-25] MEDS: IBUPROFEN 400 MG TABLET (FP) PO PRN ×2 (09:58→21:15)
[2017-08-25] MEDS: ALBUTEROL SO4 18 GM HFA INHALER IH PRN ×2 (17:24→21:56)
[2017-08-25] MEDS: THIAMINE HCL 100 MG TABLET (FP) PO SCH (21:16)
[2017-08-25] MEDS: LIDOCAINE PATCH REMOVAL MC SCH (21:16)
[2017-08-26] MEDS: ALBUTEROL SO4 18 GM HFA INHALER IH PRN ×2 (03:56→18:35)
[2017-08-26] MEDS: guaiFENesin/D-METHORPHAN HB 10 ML UNIT-DOSE CUPS PO PRN (06:59)
[2017-08-26] MEDS: ALBUTEROL SO4 2.5/IPRATROPIUM 0.5 INH SOL 3 ML VIAL.NEB. NEB PRN (07:03)
[2017-08-26] MEDS: PRENATAL VITAMINS W/ FOLIC ACID TABLET (FP) PO SCH (09:49)
[2017-08-26] MEDS: IBUPROFEN 400 MG TABLET (FP) PO PRN ×2 (09:49→21:06)
[2017-08-26] MEDS: LIDOCAINE 5% TOPICAL PATCH TP SCH (09:50)
[2017-08-26] MEDS: THIAMINE HCL 100 MG TABLET (FP) PO SCH (21:05)
[2017-08-26] MEDS: LIDOCAINE PATCH REMOVAL MC SCH (21:07)
[2017-08-27] MEDS: ALBUTEROL SO4 2.5/IPRATROPIUM 0.5 INH SOL 3 ML VIAL.NEB. NEB PRN (06:25)
[2017-08-27] MEDS: ALBUTEROL SO4 18 GM HFA INHALER IH PRN ×3 (06:26→20:44)
[2017-08-27] MEDS: PRENATAL VITAMINS W/ FOLIC ACID TABLET (FP) PO SCH (10:01)
[2017-08-27] MEDS: LIDOCAINE 5% TOPICAL PATCH TP SCH (10:01)
[2017-08-27] MEDS: IBUPROFEN 400 MG TABLET (FP) PO PRN ×2 (10:02→21:07)
[2017-08-27] MEDS: MENTHOL/PHENOL 1 EACH UD MM PRN (10:03)
[2017-08-27] MEDS: THIAMINE HCL 100 MG TABLET (FP) PO SCH (21:06)
[2017-08-27] MEDS: LIDOCAINE PATCH REMOVAL MC SCH (21:08)
[2017-08-27] MEDS: MAG HYDROX/AL HYDROX/SIMETH 30 ML UNIT-DOSE CUP PO PRN (21:57)
[2017-08-28] MEDS: LIDOCAINE 5% TOPICAL PATCH TP SCH (09:58)
[2017-08-28] MEDS: PRENATAL VITAMINS W/ FOLIC ACID TABLET (FP) PO SCH (09:58)
[2017-08-28] MEDS: THIAMINE HCL 100 MG TABLET (FP) PO SCH (21:04)
[2017-08-28] MEDS: LIDOCAINE PATCH REMOVAL MC SCH (21:05)
[2017-08-28] MEDS: IBUPROFEN 400 MG TABLET (FP) PO PRN (21:05)
[2017-08-28] MEDS: ALBUTEROL SO4 18 GM HFA INHALER IH PRN (21:06)
[2017-08-29] MEDS: ALBUTEROL SO4 18 GM HFA INHALER IH PRN ×2 (06:39→21:12)
[2017-08-29] MEDS: LIDOCAINE 5% TOPICAL PATCH TP SCH ×2 (09:51→14:36)
[2017-08-29] MEDS: PRENATAL VITAMINS W/ FOLIC ACID TABLET (FP) PO SCH (09:51)
[2017-08-29] MEDS: ACETAMINOPHEN 325 MG TABLET (FP) PO PRN (09:53)
[2017-08-29] MEDS: PANTOPRAZOLE 40 MG TABLET (FP) PO SCH (14:36)
[2017-08-29] MEDS: NAPROXEN 500 MG TABLET (FP) PO SCH ×2 (14:36→21:12)
[2017-08-29] MEDS: ALBUTEROL SO4 2.5/IPRATROPIUM 0.5 INH SOL 3 ML VIAL.NEB. NEB PRN ×2 (14:37→15:48)
[2017-08-29] MEDS: LIDOCAINE PATCH REMOVAL MC SCH ×2 (21:12)
[2017-08-29] MEDS: MAG HYDROX/AL HYDROX/SIMETH 30 ML UNIT-DOSE CUP PO PRN (21:12)
[2017-08-29] MEDS: THIAMINE HCL 100 MG TABLET (FP) PO SCH (21:12)
[2017-08-30] MEDS: ALBUTEROL SO4 18 GM HFA INHALER IH PRN ×2 (06:16→09:50)
[2017-08-30] MEDS: NAPROXEN 500 MG TABLET (FP) PO SCH ×2 (09:50→21:10)
[2017-08-30] MEDS: PRENATAL VITAMINS W/ FOLIC ACID TABLET (FP) PO SCH (09:50)
[2017-08-30] MEDS: LIDOCAINE 5% TOPICAL PATCH TP SCH ×2 (09:51)
[2017-08-30] MEDS: PANTOPRAZOLE 40 MG TABLET (FP) PO SCH (10:36)
[2017-08-30] MEDS ORDERED: LIDOCAINE 5% TOPICAL PATCH TP SCH (16:05)
[2017-08-30] MEDS: THIAMINE HCL 100 MG TABLET (FP) PO SCH (21:10)
[2017-08-30] MEDS: LIDOCAINE PATCH REMOVAL MC SCH (21:10)
[2017-08-30] MEDS: MAG HYDROX/AL HYDROX/SIMETH 30 ML UNIT-DOSE CUP PO PRN (21:13)
[2017-08-31] MEDS: PRENATAL VITAMINS W/ FOLIC ACID TABLET (FP) PO SCH (09:39)
[2017-08-31] MEDS: NAPROXEN 500 MG TABLET (FP) PO SCH ×2 (09:39→21:10)
[2017-08-31] MEDS: PANTOPRAZOLE 40 MG TABLET (FP) PO SCH (09:40)
[2017-08-31] MEDS: LIDOCAINE 5% TOPICAL PATCH TP SCH (09:40)
[2017-08-31] MEDS: ALBUTEROL SO4 18 GM HFA INHALER IH PRN ×2 (13:03→21:11)
[2017-08-31] MEDS: ACETAMINOPHEN 325 MG TABLET (FP) PO PRN (13:06)
[2017-08-31] MEDS: THIAMINE HCL 100 MG TABLET (FP) PO SCH (21:10)
[2017-08-31] MEDS: LIDOCAINE PATCH REMOVAL MC SCH (21:11)
[2017-09-01] MEDS: MENTHOL/PHENOL 1 EACH UD MM PRN (06:37)
[2017-09-01] MEDS: guaiFENesin/D-METHORPHAN HB 10 ML UNIT-DOSE CUPS PO PRN (06:37)
[2017-09-01] MEDS: NAPROXEN 500 MG TABLET (FP) PO SCH ×2 (10:03→21:19)
[2017-09-01] MEDS: PRENATAL VITAMINS W/ FOLIC ACID TABLET (FP) PO SCH (10:03)
[2017-09-01] MEDS: LIDOCAINE 5% TOPICAL PATCH TP SCH (10:04)
[2017-09-01] MEDS: PANTOPRAZOLE 40 MG TABLET (FP) PO SCH (10:04)
[2017-09-01] MEDS: THIAMINE HCL 100 MG TABLET (FP) PO SCH (21:19)
[2017-09-01] MEDS: LIDOCAINE PATCH REMOVAL MC SCH (21:19)
[2017-09-01] MEDS: ALBUTEROL SO4 18 GM HFA INHALER IH PRN (21:19)
[2017-09-01] MEDS: MAG HYDROX/AL HYDROX/SIMETH 30 ML UNIT-DOSE CUP PO PRN (21:22)
[2017-09-02] MEDS: MENTHOL/PHENOL 1 EACH UD MM PRN (07:10)
[2017-09-02] MEDS: guaiFENesin/D-METHORPHAN HB 10 ML UNIT-DOSE CUPS PO PRN (07:10)
[2017-09-02] MEDS: PRENATAL VITAMINS W/ FOLIC ACID TABLET (FP) PO SCH (10:02)
[2017-09-02] MEDS: NAPROXEN 500 MG TABLET (FP) PO SCH ×2 (10:03→21:45)
[2017-09-02] MEDS: PANTOPRAZOLE 40 MG TABLET (FP) PO SCH (10:04)
[2017-09-02] MEDS: LIDOCAINE 5% TOPICAL PATCH TP SCH (10:04)
[2017-09-02] MEDS: ALBUTEROL SO4 18 GM HFA INHALER IH PRN ×2 (18:29→22:36)
[2017-09-02] MEDS: THIAMINE HCL 100 MG TABLET (FP) PO SCH (21:45)
[2017-09-02] MEDS: LIDOCAINE PATCH REMOVAL MC SCH (21:46)
[2017-09-02] MEDS: MAG HYDROX/AL HYDROX/SIMETH 30 ML UNIT-DOSE CUP PO PRN (22:35)
[2017-09-03] MEDS: guaiFENesin/D-METHORPHAN HB 10 ML UNIT-DOSE CUPS PO PRN (06:11)
[2017-09-03] MEDS: MENTHOL/PHENOL 1 EACH UD MM PRN ×2 (06:14→14:36)
[2017-09-03] MEDS: PRENATAL VITAMINS W/ FOLIC ACID TABLET (FP) PO SCH (10:19)
[2017-09-03] MEDS: PANTOPRAZOLE 40 MG TABLET (FP) PO SCH (10:20)
[2017-09-03] MEDS: LIDOCAINE 5% TOPICAL PATCH TP SCH (10:20)
[2017-09-03] MEDS: NAPROXEN 500 MG TABLET (FP) PO SCH ×2 (10:20→21:04)
[2017-09-03] MEDS: ACETAMINOPHEN 325 MG TABLET (FP) PO PRN (14:35)
[2017-09-03] MEDS: THIAMINE HCL 100 MG TABLET (FP) PO SCH (21:04)
[2017-09-03] MEDS: LIDOCAINE PATCH REMOVAL MC SCH (21:05)
[2017-09-03] MEDS: ALBUTEROL SO4 18 GM HFA INHALER IH PRN (21:05)
[2017-09-04] MEDS: NAPROXEN 500 MG TABLET (FP) PO SCH ×2 (10:12→21:04)
[2017-09-04] MEDS: PANTOPRAZOLE 40 MG TABLET (FP) PO SCH (10:12)
[2017-09-04] MEDS: LIDOCAINE 5% TOPICAL PATCH TP SCH (10:13)
[2017-09-04] MEDS: PRENATAL VITAMINS W/ FOLIC ACID TABLET (FP) PO SCH (10:13)
[2017-09-04] MEDS: MENTHOL/PHENOL 1 EACH UD MM PRN ×3 (10:14→20:17)
[2017-09-04] MEDS: ACETAMINOPHEN 325 MG TABLET (FP) PO PRN ×2 (14:27→20:16)
[2017-09-04] MEDS: ALBUTEROL SO4 18 GM HFA INHALER IH PRN ×2 (14:45→21:06)
[2017-09-04] MEDS: P-EPHED 60MG/TRIPROLIDI 2.5MG TABLET PO PRN (20:17)
[2017-09-04] MEDS: THIAMINE HCL 100 MG TABLET (FP) PO SCH (21:04)
[2017-09-04] MEDS: LIDOCAINE PATCH REMOVAL MC SCH (21:05)
[2017-09-05] MEDS: guaiFENesin/D-METHORPHAN HB 10 ML UNIT-DOSE CUPS PO PRN (07:22)
[2017-09-05] MEDS: MENTHOL/PHENOL 1 EACH UD MM PRN ×2 (07:23→21:10)
[2017-09-05] MEDS: PANTOPRAZOLE 40 MG TABLET (FP) PO SCH (09:49)
[2017-09-05] MEDS: NAPROXEN 500 MG TABLET (FP) PO SCH ×2 (09:49→21:10)
[2017-09-05] MEDS: PRENATAL VITAMINS W/ FOLIC ACID TABLET (FP) PO SCH (09:49)
[2017-09-05] MEDS: LIDOCAINE 5% TOPICAL PATCH TP SCH (09:50)
[2017-09-05] MEDS: ACETAMINOPHEN 325 MG TABLET (FP) PO PRN (14:40)
[2017-09-05] MEDS: ALBUTEROL SO4 18 GM HFA INHALER IH PRN ×2 (14:41→21:07)
[2017-09-05] MEDS: THIAMINE HCL 100 MG TABLET (FP) PO SCH (21:06)
[2017-09-05] MEDS: MAG HYDROX/AL HYDROX/SIMETH 30 ML UNIT-DOSE CUP PO PRN (21:09)
[2017-09-05] MEDS: LIDOCAINE PATCH REMOVAL MC SCH (21:09)
[2017-09-06] MEDS: PRENATAL VITAMINS W/ FOLIC ACID TABLET (FP) PO SCH (09:50)
[2017-09-06] MEDS: LIDOCAINE 5% TOPICAL PATCH TP SCH (09:50)
[2017-09-06] MEDS: NAPROXEN 500 MG TABLET (FP) PO SCH ×2 (09:50→21:09)
[2017-09-06] MEDS: PANTOPRAZOLE 40 MG TABLET (FP) PO SCH (09:50)
[2017-09-06] MEDS: guaiFENesin/D-METHORPHAN HB 10 ML UNIT-DOSE CUPS PO PRN ×2 (09:52→15:48)
[2017-09-06] MEDS: MENTHOL/PHENOL 1 EACH UD MM PRN ×3 (09:53→21:12)
[2017-09-06] MEDS: ACETAMINOPHEN 325 MG TABLET (FP) PO PRN (15:48)
[2017-09-06] MEDS: LIDOCAINE PATCH REMOVAL MC SCH (21:09)
[2017-09-06] MEDS: THIAMINE HCL 100 MG TABLET (FP) PO SCH (21:09)
[2017-09-07] MEDS: NAPROXEN 500 MG TABLET (FP) PO SCH ×2 (09:42→21:11)
[2017-09-07] MEDS: LIDOCAINE 5% TOPICAL PATCH TP SCH (09:42)
[2017-09-07] MEDS: PRENATAL VITAMINS W/ FOLIC ACID TABLET (FP) PO SCH (09:42)
[2017-09-07] MEDS: PANTOPRAZOLE 40 MG TABLET (FP) PO SCH (09:42)
[2017-09-07] MEDS: MENTHOL/PHENOL 1 EACH UD MM PRN ×2 (09:44→21:12)
[2017-09-07] MEDS: LIDOCAINE PATCH REMOVAL MC SCH (21:11)
[2017-09-07] MEDS: THIAMINE HCL 100 MG TABLET (FP) PO SCH (21:11)
[2017-09-07] MEDS: P-EPHED 60MG/TRIPROLIDI 2.5MG TABLET PO PRN (21:13)
[2017-09-08] MEDS: ACETAMINOPHEN 325 MG TABLET (FP) PO PRN ×2 (00:45→15:10)
[2017-09-08] MEDS: ALBUTEROL SO4 18 GM HFA INHALER IH PRN (00:46)
[2017-09-08] MEDS: MAG HYDROX/AL HYDROX/SIMETH 30 ML UNIT-DOSE CUP PO PRN (00:46)
[2017-09-08] MEDS: MENTHOL/PHENOL 1 EACH UD MM PRN ×2 (06:56→15:11)
[2017-09-08] MEDS: PRENATAL VITAMINS W/ FOLIC ACID TABLET (FP) PO SCH (09:47)
[2017-09-08] MEDS: NAPROXEN 500 MG TABLET (FP) PO SCH ×2 (09:47→21:06)
[2017-09-08] MEDS: PANTOPRAZOLE 40 MG TABLET (FP) PO SCH (09:47)
[2017-09-08] MEDS: LIDOCAINE 5% TOPICAL PATCH TP SCH (09:47)
[2017-09-08] MEDS: THIAMINE HCL 100 MG TABLET (FP) PO SCH (21:06)
[2017-09-08] MEDS: LIDOCAINE PATCH REMOVAL MC SCH (23:28)
[2017-09-09] MEDS: ALBUTEROL SO4 18 GM HFA INHALER IH PRN ×2 (06:16→21:08)
[2017-09-09] MEDS: ACETAMINOPHEN 325 MG TABLET (FP) PO PRN ×2 (06:17→16:39)
[2017-09-09] MEDS: MENTHOL/PHENOL 1 EACH UD MM PRN (06:18)
[2017-09-09] MEDS: LIDOCAINE 5% TOPICAL PATCH TP SCH (09:46)
[2017-09-09] MEDS: PRENATAL VITAMINS W/ FOLIC ACID TABLET (FP) PO SCH (09:47)
[2017-09-09] MEDS: NAPROXEN 500 MG TABLET (FP) PO SCH ×2 (09:47→21:06)
[2017-09-09] MEDS: PANTOPRAZOLE 40 MG TABLET (FP) PO SCH (09:47)
[2017-09-09] MEDS: guaiFENesin/D-METHORPHAN HB 10 ML UNIT-DOSE CUPS PO PRN (16:40)
[2017-09-09] MEDS: THIAMINE HCL 100 MG TABLET (FP) PO SCH (21:06)
[2017-09-09] MEDS: LIDOCAINE PATCH REMOVAL MC SCH (21:07)
[2017-09-10] MEDS: NAPROXEN 500 MG TABLET (FP) PO SCH ×2 (09:59→21:07)
[2017-09-10] MEDS: PRENATAL VITAMINS W/ FOLIC ACID TABLET (FP) PO SCH (09:59)
[2017-09-10] MEDS: PANTOPRAZOLE 40 MG TABLET (FP) PO SCH (10:00)
[2017-09-10] MEDS: ALBUTEROL SO4 18 GM HFA INHALER IH PRN ×2 (10:00→21:08)
[2017-09-10] MEDS: LIDOCAINE 5% TOPICAL PATCH TP SCH (10:00)
[2017-09-10] MEDS: ACETAMINOPHEN 325 MG TABLET (FP) PO PRN (13:13)
[2017-09-10] MEDS: THIAMINE HCL 100 MG TABLET (FP) PO SCH (21:07)
[2017-09-10] MEDS: LIDOCAINE PATCH REMOVAL MC SCH (21:08)
[2017-09-11] MEDS: MENTHOL/PHENOL 1 EACH UD MM PRN (06:18)
[2017-09-11] MEDS: guaiFENesin/D-METHORPHAN HB 10 ML UNIT-DOSE CUPS PO PRN (06:18)
[2017-09-11] MEDS: LIDOCAINE 5% TOPICAL PATCH TP SCH (09:41)
[2017-09-11] MEDS: NAPROXEN 500 MG TABLET (FP) PO SCH ×2 (09:41→21:02)
[2017-09-11] MEDS: PANTOPRAZOLE 40 MG TABLET (FP) PO SCH (09:41)
[2017-09-11] MEDS: PRENATAL VITAMINS W/ FOLIC ACID TABLET (FP) PO SCH (09:41)
[2017-09-11] MEDS: THIAMINE HCL 100 MG TABLET (FP) PO SCH (21:02)
[2017-09-11] MEDS: LIDOCAINE PATCH REMOVAL MC SCH (21:03)
--- NOTE | 2017-09-11 22:49 | PN ---
[facility] Progress Note Note: c/o bilateral tingling on both lower extremities. Patient reports this has happen before. Reports hx of low back pain with sciatica. 62 yo male with hx of alcohol dependence. Patient OAx3, ambulating with a cane, no signs and symptoms of acute distress. Neurontin 100mg TID ordered Continue to monitor
[2017-09-11] MEDS: GABAPENTIN 100 MG CAPSULE (FP) PO SCH (22:51)
[2017-09-11] MEDS: MAG HYDROX/AL HYDROX/SIMETH 30 ML UNIT-DOSE CUP PO PRN ×2 (22:58)
[2017-09-12] MEDS: GABAPENTIN 100 MG CAPSULE (FP) PO SCH (06:36)
[2017-09-12 06:48] VITALS: BP 135/77; PULSE 88; TEMP 97.5
[2017-09-12] MEDS: PANTOPRAZOLE 40 MG TABLET (FP) PO SCH (10:12)
[2017-09-12] MEDS: NAPROXEN 500 MG TABLET (FP) PO SCH (10:12)
[2017-09-12] MEDS: LIDOCAINE 5% TOPICAL PATCH TP SCH (10:13)
[2017-09-12] MEDS: PRENATAL VITAMINS W/ FOLIC ACID TABLET (FP) PO SCH (10:13)
--- NOTE | 2017-09-12 11:06 | PN ---
Psychiatric Progress Note Vital Signs: Vital Signs Period Temp Pulse Resp BP Sys/Avila Pulse Ox Last 24 Hr 97.5 F 88 18-18 135/77 Date of Session: 09/12/17 Chief Complaint:: discharge visit HPI: Patient has addressed alcohol dependence. ROS: Bronchial asthma, COPD, GERD, costochondritis, low back pain medically managed. Current Medications: Active Medications Generic Name Dose Route Start Last Admin Trade Name Freq PRN Reason Stop Dose Admin Acetaminophen 650 mg 08/20/17 23:31 09/10/17 13:13 Tylenol - PO 650 mg Q4H PRN Administration FEVER Al Hydroxide/Mg Hydroxide 30 ml 08/20/17 23:31 09/11/17 22:58 Mylanta Oral Suspension - PO 30 ml Q6H PRN Administration DYSPEPSIA Albuterol Sulfate 2 puff 08/20/17 23:32 09/10/17 21:08 Ventolin Hfa Inhaler - IH 2 puff Q4H PRN Administration SHORT OF BREATH/WHEEZING Eucalyptus/Menthol/Phenol/Sorbitol 1 each 08/20/17 23:31 09/11/17 06:18 Cepastat Lozenge - MM 1 each Q4H PRN Administration SORE THROAT Gabapentin 100 mg 09/11/17 22:45 09/12/17 06:36 Neurontin - PO 100 mg TID NESSA Administration Guaifenesin 10 ml 08/20/17 23:31 09/11/17 06:18 Robitussin Dm - PO 10 ml Q6H PRN Administration COUGH Lidocaine 2 patch 08/30/17 18:46 09/12/17 10:13 Lidoderm Patch - TP 2 patch DAILY NESSA Administration Loperamide HCl 4 mg 08/20/17 23:31 Imodium - PO Q6H PRN DIARRHEA Magnesium Citrate 300 ml 08/20/17 23:31 Citroma - PO Q48H PRN CONSTIPATION Magnesium Hydroxide 30 ml 08/20/17 23:31 Milk Of Magnesia - PO DAILY PRN CONSTIPATION Miscellaneous 1 each 08/29/17 22:00 09/11/17 21:03 Lidoderm Patch Removal MC Not Given DAILY@2200 NESSA Naproxen 500 mg 08/29/17 13:30 09/12/17 10:12 Naprosyn - PO 500 mg BID NESSA Administration Pantoprazole Sodium 40 mg 08/29/17 13:49 09/12/17 10:12 Protonix - PO 40 mg DAILY NESSA Administration Multivit/Folic Acid/Iron 1 tab 08/21/17 10:00 09/12/17 10:13 Vitamins (Sjr) - PO 1 tab DAILY NESSA Administration Pseudoephedrine/Triprolidine 1 combo 08/20/17 23:31 09/04/17 20:17 Actifed - PO 1 combo TID PRN Administration NASAL CONGESTION Thiamine HCl 100 mg 08/21/17 22:00 09/11/17 21:02 Vitamin B1 - PO 100 mg HS NESSA Administration Current Side Effect: No Lab tests ordered: No Lab tests reviewed: Yes Provider note:: Patient has compketed today his rehabilitation treatment and met his gaols, he was referred to [facility] for extended care. He gained insight into importance of continuing his sobriety and focused on ways to change his behavior for the utilization of supports to prevent relapses. Patient was encouraged to maintain abstinence. Patient is stable for discharge today. Total face to face time:: 20 Mental Status Exam - Mental Status Exam Alert and Oriented to: Time, Place, Person Cognitive Function: Good Patient Appearance: Well Groomed Mood: Hopeful Affect: Appropriate, Mood Congruent Patient Behavior: Appropriate, Cooperative Speech Pattern: Clear, Appropriate Voice Loudness: Normal Thought Process: Goal Oriented Thought Disorder: Not Present Hallucinations: Denies Suicidal Ideation: Denies Homicidal Ideation: Denies Insight/Judgement: Fair Sleep: Difficulty falling asleep Appetite: Fair Muscle strength/Tone: Normal Gait/Station: Other (walks with a cane) Psychiatric Treatment Plan - Problem List (1) Alcohol dependence Current Visit: Yes (2) Asthma Current Visit: Yes Qualifiers: Asthma severity: mild Asthma persistence: intermittent Asthma complication type: with status asthmaticus Qualified Code(s): J45.22 - Mild intermittent asthma with status asthmaticus (3) COPD (chronic obstructive pulmonary disease) Current Visit: Yes Qualifiers: COPD type: emphysema Qualified Code(s): J44.1 - Chronic obstructive pulmonary disease with (acute) exacerbation (4) Cervical spine degeneration Current Visit: No Qualifiers: 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 or radiculopathy Qualified Code(s): M47.812 - Spondylosis without myelopathy or radiculopathy, cervical region (5) Chronic low back pain Current Visit: No Qualifiers: Back pain laterality: bilateral Sciatica presence: without sciatica Qualified Code(s): M54.5 - Low back pain (6) Degenerative disc disease Current Visit: No Qualifiers: Spinal region: unspecified cervical region Qualified Code(s): M50.30 - Other cervical disc degeneration, unspecified cervical region (7) GERD (gastroesophageal reflux disease) Current Visit: Yes Qualifiers: Esophagitis presence: without esophagitis Qualified Code(s): K21.9 - Gastro -esophageal reflux disease without esophagitis (8) Neuropathy Current Visit: Yes Comment: left face + right toe big (9) Unsteady gait Current Visit: Yes (10) Costochondritis Current Visit: No
== END 2017-09-12 11:20 | disposition home or self-care (01) | DRG 895 ==
LOC: YASAS 20:40 → Y5N 22:25
PROVIDERS: ADMIT Psychiatry & Neurology Psychiatry; ATTEND Psychiatry & Neurology Psychiatry
PROC: HZ42ZZZ Group Counseling for Substance Abuse Treatment, Cognitive-Behavioral (ICD-10-PCS; principal; 2017-08-20)
DX: F10.20 Alcohol dependence, uncomplicated (principal); J45.22 Mild intermittent asthma with status asthmaticus; F44.1 Dissociative fugue; M47.812 Spondylosis without myelopathy or radiculopathy, cervical region; G89.29 Other chronic pain; M50.30 Other cervical disc degeneration, unspecified cervical region; M94.0 Chondrocostal junction syndrome [Tietze]; K21.9 Gastro-esophageal reflux disease without esophagitis; G62.9 Polyneuropathy, unspecified; R26.81 Unsteadiness on feet; R26.89 Other abnormalities of gait and mobility; Z99.89 Dependence on other enabling machines and devices
CPT/HCPCS: 93005; 93010; 94640

== ENCOUNTER 2019-01-07 12:49 | Observation (INO) | payer OTHER ==
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
[2019-01-07 14:09] LABS: INR 1.15 (0.83-1.09); PROTHROMBIN TIME (PATIENT) 13.6 SEC (9.7-13.0)
[2019-01-07 14:22] LABS: ALBUMIN 3.7 g/dl (3.4-5.0); ALK PHOS 84 U/L (45-117); ANION GAP 7 MMOL/L (8-16); BILIRUBIN,TOTAL 1.2 mg/dL (0.2-1); BLOOD UREA NITROGEN 10.7 mg/dL (7-18); CHLORIDE 106 mmol/L (98-107); CO2 27 mmol/L (21-32); CREATININE 0.9 mg/dL (0.55-1.3); GLUCOSE,RANDOM 105 mg/dL (74-106); POTASSIUM 3.8 mmol/L (3.5-5.1); SGOT/AST 14 U/L (15-37); SGPT/ALT 38 U/L (13-61); SODIUM 140 mmol/L (136-145)
[2019-01-07 14:39] LABS: BASO % 0.5 % (0-2.0); EOS % 1.9 % (0-4.5); HEMATOCRIT 42.2 % (35.4-49); HEMOGLOBIN 14.4 GM/dL (11.7-16.9); LYMPH % 24.1 % (8-40); MCH 31.3 pg (25.7-33.7); MCHC 34.1 g/dl (32.0-35.9); MEAN CELL VOLUME 91.9 fl (80-96); MEAN PLT VOLUME 9.9 fl (7.5-11.1); MONO % 8.8 % (3.8-10.2); NEUT % 64.7 % (42.8-82.8); PLATELET COUNT 158 K/MM3 (134-434); RDW 13.9 % (11.9-15.9); WHITE BLOOD COUNT 5.9 K/mm3 (4.0-10.0)
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
--- NOTE | 2019-01-07 15:28 | PDOC ---
Documentation entered by Angelina Abernathy SCRIBE, acting as scribe for Erich Patricio MD. Erich Patricio MD: This documentation has been prepared by the Michela jones Brenda, SCRIBE, under my direction and personally reviewed by me in its entirety. I confirm that the documentation accurately reflects all work, treatment, procedures, and medical decision making performed by me. Attending Attestation - Resident Resident Name: ReggieDylon - ED Attending Attestation I have performed the following: I have examined & evaluated the patient, The case was reviewed & discussed with the resident, I agree w/resident's findings & plan, Exceptions are as noted - HPI HPI: 01/07/19 14:35 The patient is a 63 year old male with a significant past medical history of DJD ,asthma, CVA (residual aphasia), COPD, GERD, EtOH dependence, HTN and DM who presents to the ED from a nursing facility with SOB and chest pain. Patient initially came into the hospital for a Barium swallow test, at which time, during registration, he began to report SOB. Patient is unable to describe his symptoms but states that his SOB was accompanied chest discomfort. Denies fever or chills, leg swelling or pain, nausea or vomiting. SHx: Denies tobacco use Allergies: NKDA Surgical History: Laminectomy and orthopedic back and shoulder surgery. PCP: Mariola Dinero - Physicial Exam PE: 01/07/19 13:15 GENERAL: Awake, alert, and fully oriented, in no acute distress. HEAD: No signs of trauma EYES: PERRLA, EOMI, sclera anicteric, conjunctiva clear ENT: Auricles normal inspection, hearing grossly normal, nares patent, oropharynx clear without exudates. Moist mucosa NECK: Nontender, no stepoffs, Normal ROM, supple, no lymphadenopathy, JVD, or masses LUNGS: Breath sounds equal, clear to auscultation bilaterally. No wheezes, and no crackles HEART: Regular rate and rhythm, normal S1 and S2, no murmurs, rubs or gallops ABDOMEN: Soft, nontender, normoactive bowel sounds. No guarding, no rebound. No masses EXTREMITIES: Normal range of motion, no edema. No clubbing or cyanosis. No cords , erythema, or tenderness NEUROLOGICAL: Cranial nerves II through XII intact. 5/5 strength and sensation in all extremities, Normal speech, normal gait, normal cerebellar function SKIN: Warm, Dry, normal turgor, no rashes or lesions noted. - Medical Decision Making 01/07/19 15:24 63 M with CP and SOB. Pt with stable vitals, no clinical signs of PE. Will evaluate for ACS with serial trops. Pt without any infectious symptoms to suggest PNA, but pt is high risk for aspiration. - Labs, trop, BNP - CXR - admit tele
[2019-01-07] MEDS ORDERED: ASPIRIN 325 MG TABLET PO ONE (16:20)
--- NOTE | 2019-01-07 16:58 | EKG ---
Test Reason : Blood Pressure : / mmHG Vent. Rate : 086 BPM Atrial Rate : 086 BPM P-R Int : 134 ms QRS Dur : 088 ms QT Int : 360 ms P-R-T Axes : 036 025 038 degrees QTc Int : 430 ms NORMAL SINUS RHYTHM NORMAL ECG WHEN COMPARED WITH ECG OF 22-AUG-2017 13:54, NO SIGNIFICANT CHANGE WAS FOUND Confirmed by MD Avilez Daniel ([id number]) on 01/07/2019 4:58:10 PM Referred By: Confirmed By:Smooth Avilez MD
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
[2019-01-07] MEDS: ALBUTEROL SO4 0.083% IH SOL 2.5 MG/3 ML VIAL.NEB. NEB SCH (21:10)
--- NOTE | 2019-01-07 21:18 | HOSP ---
Subjective - Review of Symptoms Events since last encounter: Hospitalist Encounter Notified that the patient reports having chest pain and SOB Subjective: Arrived to bedside, patient is awake, alert oriented x2. States he is having L- sided CP with SOB since yesterday. PE performed see EMR Assessment: 63 yo M with h/o DJD, asthma, CVA ( residual aphasia ), COPD, GERD, Etoh dependence, who arrives to the ED from [facility] with SOB. Patient reported SOB, at 11 AM yesterday. Placed in Telemetry Observation for SOB. Plan: Stat EKG Troponin-pending Pulmonary: Yes: Dyspnea Cardiovascular: Yes: Chest Pain Physical Examination Vital Signs: Vital Signs Temperature 98.6 F 01/07/19 18:09 Pulse Rate 80 01/07/19 18:09 Respiratory Rate 18 01/07/19 18:09 Blood Pressure 132/72 01/07/19 18:09 O2 Sat by Pulse Oximetry (%) 99 01/07/19 18:09 Constitutional: Yes: Mild Distress Eyes: Yes: Conjunctiva Clear, PERRL HENT: Yes: WNL, Atraumatic, Normocephalic Neck: Yes: WNL, Supple, Trachea Midline Cardiovascular: Yes: Regular Rate and Rhythm, S1, S2 Respiratory: Yes: Diminished, On Nasal O2, Rhonchi Gastrointestinal: Yes: Normal Bowel Sounds, Soft Peripheral Pulses WNL: Yes Neurological: Yes: Alert, Oriented, Cran Nerves II-XII Intact Psychiatric: Yes: WNL, Alert, Oriented Labs: CBC, BMP 01/07/19 13:15 01/07/19 13:15 Hospitalist Encounter Outcome: EKG- SB change when compared to prior study- SR Troponin I < 0.02 CTA- neg PE
[2019-01-07] MEDS: GABAPENTIN 100 MG CAPSULE (FP) PO SCH (22:10)
[2019-01-07] MEDS: traZODone HCL 150 MG TABLET PO SCH (22:10)
[2019-01-08 00:34] VITALS: BMI 27.1
[2019-01-08] MEDS: GABAPENTIN 100 MG CAPSULE (FP) PO SCH ×3 (05:59→21:09)
[2019-01-08] MEDS: ALBUTEROL SO4 0.083% IH SOL 2.5 MG/3 ML VIAL.NEB. NEB SCH ×4 (08:42→20:25)
[2019-01-08 09:19] LABS: ALBUMIN 3.6 g/dl (3.4-5.0); ALK PHOS 85 U/L (45-117); ANION GAP 10 MMOL/L (8-16); BILIRUBIN,TOTAL 1.7 mg/dL (0.2-1); BLOOD UREA NITROGEN 8.9 mg/dL (7-18); CALCIUM 8.6 mg/dL (8.5-10.1); CHLORIDE 104 mmol/L (98-107); CHOLESTEROL 193 mg/dL (50-200); CO2 27 mmol/L (21-32); GLUCOSE,RANDOM 80 mg/dL (74-106); HDL CHOLESTEROL 48 mg/dL (40-60); SGOT/AST 18 U/L (15-37); SGPT/ALT 39 U/L (13-61); SODIUM 140 mmol/L (136-145); TOT PROT 6.7 g/dl (6.4-8.2); TRIGLYCERIDES 106 mg/dL (0-150)
--- NOTE | 2019-01-08 11:09 | PN ---
Progress Note (short form) - Note Progress Note: c/o chest pain and spb CTA negative for PE cardiac enzymes negative echo done-- results pending Vital Signs - 24 hr 01/07/19 01/07/19 01/07/19 12:58 13:14 18:09 Temperature 98.6 F 98.6 F Pulse Rate 87 Pulse Rate [ 80 Left Brachial] Respiratory 20 18 Rate Blood Pressure 118/73 Blood Pressure 132/72 [Left Arm] O2 Sat by Pulse 98 96 99 Oximetry (%) 01/07/19 01/08/19 19:15 06:00 Temperature 98.2 F 98.4 F Pulse Rate 60 63 Pulse Rate [ Left Brachial] Respiratory 20 20 Rate Blood Pressure 127/72 111/65 Blood Pressure [Left Arm] O2 Sat by Pulse Oximetry (%) Current Medications Generic Name Dose Route Start Last Admin Trade Name Freq PRN Reason Stop Dose Admin Albuterol Sulfate 1 amp 01/07/19 20:00 01/08/19 08:42 Ventolin 0.083% Nebulizer Soln - NEB 1 amp RQID NESSA Administration Budesonide/Formoterol Fumarate 2 puff 01/07/19 22:00 Symbicort 160/4.5mcg - IH BID NESSA Gabapentin 100 mg 01/07/19 22:00 01/08/19 05:59 Neurontin - PO Not Given TID NESSA Dextrose/Sodium Chloride 1,000 mls @ 42 mls/hr 01/08/19 05:45 D5-1/2ns - IV ASDIR NESSA Trazodone HCl 150 mg 01/07/19 22:00 01/07/19 22:10 Desyrel - PO Not Given HS [facility] Laboratory Results - last 24 hr 01/07/19 01/07/19 01/07/19 13:15 13:15 13:15 WBC 5.9 RBC 4.60 Hgb 14.4 Hct 42.2 MCV 91.9 MCH 31.3 MCHC 34.1 RDW 13.9 Plt Count 158 MPV 9.9 Absolute Neuts (auto) 3.8 Neutrophils % 64.7 Lymphocytes % 24.1 Monocytes % 8.8 Eosinophils % 1.9 Basophils % 0.5 Nucleated RBC % 0 PT with INR 13.60 H INR 1.15 H PTT (Actin FS) Sodium 140 Potassium 3.8 Chloride 106 Carbon Dioxide 27 Anion Gap 7 L BUN 10.7 Creatinine 0.9 Est GFR (CKD-EPI)AfAm 105.72 Est GFR (CKD-EPI)NonAf 91.22 Random Glucose 105 Calcium 9.0 Total Bilirubin 1.2 H AST 14 L ALT 38 Alkaline Phosphatase 84 Creatine Kinase 30 Troponin I < 0.02 Total Protein 7.0 Albumin 3.7 Triglycerides Cholesterol Total LDL Cholesterol HDL Cholesterol TSH 01/07/19 01/07/19 01/08/19 13:15 20:35 05:34 WBC RBC Hgb Hct MCV MCH MCHC RDW Plt Count MPV Absolute Neuts (auto) Neutrophils % Lymphocytes % Monocytes % Eosinophils % Basophils % Nucleated RBC % PT with INR INR PTT (Actin FS) 35.3 Sodium 140 Potassium 4.0 Chloride 104 Carbon Dioxide 27 Anion Gap 10 BUN 8.9 Creatinine 1.0 Est GFR (CKD-EPI)AfAm 93.08 Est GFR (CKD-EPI)NonAf 80.31 Random Glucose 80 Calcium 8.6 Total Bilirubin 1.7 H AST 18 ALT 39 Alkaline Phosphatase 85 Creatine Kinase 27 30 Troponin I < 0.02 < 0.02 Total Protein 6.7 Albumin 3.6 Triglycerides 106 Cholesterol 193 Total LDL Cholesterol 132 H HDL Cholesterol 48 TSH 0.93 S1 S2 RRR Lungs clear Abd- soft, NT No edema PLAN ?anxiety start Klonopin as needed cardiology eval For MBS today continue with meds Problem List - Problems (1) SOB (shortness of breath) Code(s): R06.02 - SHORTNESS OF BREATH (2) Anxiety Code(s): F41.9 - ANXIETY DISORDER, UNSPECIFIED (3) Asthma Code(s): J45.909 - UNSPECIFIED ASTHMA, UNCOMPLICATED Qualifiers: Asthma severity: mild Asthma persistence: intermittent Asthma complication type: with status asthmaticus Qualified Code(s): J45.22 - Mild intermittent asthma with status asthmaticus (4) COPD (chronic obstructive pulmonary disease) Code(s): J44.9 - CHRONIC OBSTRUCTIVE PULMONARY DISEASE, UNSPECIFIED Qualifiers: COPD type: emphysema Qualified Code(s): J44.1 - Chronic obstructive pulmonary disease with (acute) exacerbation
[2019-01-08] MEDS: DEXTROSE 5%-0.45% SALINE 1,000 ML IV SCH (14:06)
[2019-01-08] MEDS: PANTOPRAZOLE 40 MG TABLET (FP) PO SCH (14:07)
[2019-01-08] MEDS ORDERED: PT OWN MED DRAWER 7, Y5N ONE ×2 (14:10→20:55)
[2019-01-08] MEDS: BUDESONIDE/FORMETEROL FUMARATE 160/4.5 mcg INHALER IH SCH ×2 (14:11→21:08)
[2019-01-08] MEDS ORDERED: clonazePAM 0.5 MG TABLET PO PRN (14:53)
--- NOTE | 2019-01-08 15:28 | EKG ---
Test Reason : Blood Pressure : / mmHG Vent. Rate : 054 BPM Atrial Rate : 054 BPM P-R Int : 144 ms QRS Dur : 094 ms QT Int : 434 ms P-R-T Axes : 042 011 012 degrees QTc Int : 411 ms SINUS BRADYCARDIA MINIMAL VOLTAGE CRITERIA FOR LVH, MAY BE NORMAL VARIANT BORDERLINE ECG WHEN COMPARED WITH ECG OF 07-JAN-2019 12:54, VENT. RATE HAS DECREASED BY 32 BPM Confirmed by ANNE REYES, ÁNGELA ([id number]) on 01/08/2019 3:28:33 PM Referred By: Confirmed By:ÁNGELA RODRÍGUEZ MD
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
[2019-01-08] MEDS: traZODone HCL 150 MG TABLET PO SCH (21:09)
[2019-01-09 06:40] VITALS: TEMP 97.6
[2019-01-09] MEDS: DEXTROSE 5%-0.45% SALINE 1,000 ML IV SCH (06:51)
[2019-01-09] MEDS: GABAPENTIN 100 MG CAPSULE (FP) PO SCH (06:53)
--- NOTE | 2019-01-09 07:04 | ECHO ---
Name: ROSALBA ROSS Exam:Adult Echocardiogram Study Date: 01/08/2019 10:33 AM Age: Reason For Study: Chest pain Height: 72 in Weight: 225 lb BSA: 2.2 m2 MMode/2D Measurements & Calculations IVSd: 1.1 cm Ao root diam: 3.3 cm LVIDd: 4.4 cm LA dimension: 3.6 cm LVIDs: 2.6 cm LVPWd: 1.2 cm LVPWs: 1.8 cm EDV(Teich): 88.8 ml ESV(Teich): 24.4 ml RV S Too: 16.8 cm/sec Doppler Measurements & Calculations MV E max too: 45.9 cm/sec Ao V2 max: 136.1 cm/sec MV A max too: 66.1 cm/sec Ao max P.5 mmHg MV E/A: 0.69 Ao V2 mean: 90.4 cm/sec MV dec time: 0.23 sec Ao mean P.9 mmHg Ao V2 VTI: 26.3 cm LV V1 max P.4 mmHg TR max too: 190.7 cm/sec LV V1 mean P.0 mmHg TR max P.5 mmHg LV V1 max: 91.1 cm/sec LV V1 mean: 66.7 cm/sec LV V1 VTI: 19.4 cm PA V2 max: 136.4 cm/sec Med Peak E' Too: 6.5 cm/sec PA max P.4 mmHg Med E/e': 7.0 Lat Peak E' Too: 4.4 cm/sec Lat E/e': 10.5 Procedure A two-dimensional transthoracic echocardiogram with color flow and Doppler was performed. Left Ventricle The left ventricular size, thickness and function are normal. The left ventricular ejection fraction is normal. E/A reversal consistent with but not diagnostic of poor LV compliance. The left ventricular w all motion is normal. Right Ventricle The right ventricle is normal in size and function. Atria Normal left and right atrial size and function. Mitral Valve There is mild mitral valve thickening. There is no mitral valve stenosis. There is trace mitral regur gitation. Tricuspid Valve There is mild tricuspid valve thickening. There is no tricuspid stenosis. There is mild tricuspid regurgitation. Right ventricular systolic pressure is normal. Aortic Valve The aortic valve is normal in structure and function. No hemodynamically significant valvular aortic stenosis. No aortic regurgitation is present. Pulmonic Valve The pulmonic valve is not well visualized. Great Vessels The aortic root is normal size. Pericardium/Pleura There is no pericardial effusion. Interpretation Summary The left ventricular size, thickness and function are normal The left ventricular ejection fraction is normal. The left ventricular wall motion is normal. There is mild tricuspid regurgitation. Right ventricular systolic pressure is normal. E/A reversal consistent with but not diagnostic of poor LV compliance There is trace mitral regurgitation. MD Kermit Medrano 01/08/2019 02:49 PM
[2019-01-09] MEDS: ALBUTEROL SO4 0.083% IH SOL 2.5 MG/3 ML VIAL.NEB. NEB SCH ×2 (07:37→11:28)
--- NOTE | 2019-01-09 10:36 | DS ---
Physical Examination Vital Signs: Vital Signs Temperature 97.6 F 01/09/19 06:00 Pulse Rate 92 H 01/09/19 06:00 Respiratory Rate 20 01/09/19 06:00 Blood Pressure 108/62 01/09/19 06:00 O2 Sat by Pulse Oximetry (%) 100 01/09/19 09:00 Constitutional: Yes: No Distress Cardiovascular: Yes: Regular Rate and Rhythm Respiratory: Yes: CTA Bilaterally Gastrointestinal: Yes: Normal Bowel Sounds, Soft. No: Tenderness Edema: No Labs: CBC, BMP 01/07/19 13:15 01/08/19 05:34 Discharge Summary Reason For Visit: SOB Current Active Problems SOB (shortness of breath) (Acute) Hospital Course: Admitted for sob and chets pain CTA chest - negative for PE Echo -- normal Evaluated by [facility] Cardiac enzymes negative stable for dc to IN-- MBS done-- advised puree diet will need stress test as outpt possible anxiety related-- trial of klonopin Condition: Stable - Instructions Disposition: HOME - Home Medications Comprehensive Discharge Medication List: Ambulatory Orders Albuterol 0.083% Nebulizer Taryn [Ventolin 0.083% Nebulizer Soln -] 1 neb NEB Q6H 01/07/19 Budesonide/Formeterol Fumarate [SYMBICORT 160/4.5mcg -] 01/07/19 Folic Acid 01/07/19 Gabapentin 100 mg PO 01/07/19 Thiamine HCl [B-1] 100 mg PO 01/07/19 Trazodone HCl 01/07/19 Pantoprazole Sodium [Protonix -] 40 mg PO DAILY #30 tablet.ec 01/09/19 clonazePAM [Klonopin -] 0.5 mg PO Q12H PRN #60 tablet MDD 2 01/09/19
[2019-01-09] MEDS: PANTOPRAZOLE 40 MG TABLET (FP) PO SCH (12:02)
[2019-01-09] MEDS: BUDESONIDE/FORMETEROL FUMARATE 160/4.5 mcg INHALER IH SCH (12:02)
[2019-01-09 12:43] VITALS: BP 100/51; PULSE 72
== END 2019-01-09 12:45 ==
LOC: JER 12:49 → JERBED 14:51 → J4W 18:54
PROVIDERS: ADMIT Internal Medicine; ATTEND Internal Medicine
PROC: 3E0F7GC Introduction of Other Therapeutic Substance into Respiratory Tract, Via Natural or Artificial Opening (ICD-10-PCS; principal; 2019-01-07)
DX: R06.02 Shortness of breath (principal); F41.9 Anxiety disorder, unspecified; J44.1 Chronic obstructive pulmonary disease with (acute) exacerbation; K21.9 Gastro-esophageal reflux disease without esophagitis; K74.60 Unspecified cirrhosis of liver; F10.21 Alcohol dependence, in remission; Z99.3 Dependence on wheelchair; M51.17 Intervertebral disc disorders with radiculopathy, lumbosacral region; I69.320 Aphasia following cerebral infarction; Z87.891 Personal history of nicotine dependence
CPT/HCPCS: 36415; 71045-TC-FY; 71275-TC; 74230-TC-FY; 80053; 80061; 82550; 83721; 84443; 84484; 85025; 85610; 85730; 92611-GN; 93005; 93010; 93306-TC; 94640; 99284-25; G0378